=== PATIENT | male | born 1970 | race Caucasian/White ===

== ENCOUNTER → 2018-02-11 | Outpatient (CLI) | payer BC ==
--- NOTE | 2018-02-11 12:26 | CONS ---
CONSULTATION DATE OF SERVICE: 02/11/2018 A 48-year-old gentleman who has been evaluated in the sleep center for multiple awakenings from sleep and difficulties to initiate sleep. HISTORY OF PRESENT ILLNESS/SLEEP-WAKE EVALUATION: Patient usual sleep schedule on weekdays from 9 p.m. to 7 a.m. and on weekend from about 10 to 11 p.m. until 7 a.m. He does have problem with falling asleep. Has TV set in bedroom. Sleeps in different positions including side, back and stomach with snoring and witnessed episodes of stopped breathing by his . He wakes up from sleep 4 to 5 times with several episodes of nocturia. Sometimes he has twitching of the legs at night. Positive history of starting to see dreams after closing eyes. No history of cataplexy or sleep paralysis. [place] Sleepiness Scale is 6. PAST MEDICAL HISTORY: Positive for hypertension, TIA, anxiety, depression, COPD, BPH, nasal fracture. PAST SURGICAL HISTORY: Surgery treatment of hiatal hernia. REVIEW OF SYSTEMS: Difficulties to initiate sleep. Some restless leg symptoms. Positive history of twitching of legs. Sleepiness during the day, takes naps once a day with up to 4 cups of coffee. FAMILY HISTORY: Hypertension, heart problems, hyperlipidemia, arthritis, bronchitis, pneumonia, headaches, cancer, insomnia, acid reflux, restless legs. SOCIAL HISTORY: Positive for smoking less than 1 pack for 30 years, quit about 8 months ago. Alcohol consumption occasional. PHYSICAL EXAMINATION: During physical exam, a 48-year-old gentleman without distress. VITAL SIGNS: BP 129/88, HR 74, RR 16, height 5 feet 10 inches, weight 206, BMI 29.5, temperature 97.8, oxygen saturation room air 98%. HEENT: PERRLA, EOMI. Oropharynx low position of soft palate, wide pillars. Extreme restriction of nasal breathing on the left side, probably nasal septum deviation. Wide neck 16-1/2 inches in circumference. NECK: Supple, no JVD. Thyroid is not palpable. LUNGS: Clear to percussion and to auscultation. Good air exchange. No wheezing or rhonchi. HEART: S1, S2 regular. No murmurs, gallops, or rubs. ABDOMEN: Slightly obese. EXTREMITIES: No clubbing or cyanosis. AIR BATTLE MANAGER: Awake, alert, and oriented X3. Cranial nerves 2 to 7 intact. There is no fasciculation or atrophy. noted. No focal deficits observed. IMPRESSION: 1. Snoring, witnessed episodes of stopped breathing during the sleep, small oropharyngeal air space, multiple awakenings from sleep, obstructive sleep apnea- hypopnea syndrome. 2. History of restless leg symptoms and sometimes twitching of legs during the night. Possible restless legs syndrome and periodic limb movements. 3. Positive history of hypnagogic hallucinations. 4. History of anxiety. 5. History of depression. 6. History of benign prostatic hypertrophy. 7. History of chronic obstructive pulmonary disease with some changes of pulmonary function test according to patient. 8. Significant restriction of nasal breathing, nasal septum deviation, status post nasal fracture. 9. Hyperlipidemia. 10.Hypertension. 11.History of transient ischemic attack. 12.Overweight, borderline to obesity, body mass index 29.5. PLAN: 1. Polysomnography for evaluation of patient's breathing during sleep. 2. CPAP/BiPAP titration if sleep study confirms obstructive sleep apnea-hypopnea syndrome. 3. Preferable position during sleep on the side. 4. No driving if patient feels any sleepiness. 5. I will see patient for follow up visit to explain results of testing and following plan. 6. Stimulus control, paradoxical intention, worry time, no watching clock at night for treatment of insomnia. Thank you very much for referring this patient for consultation. Sincerely, Shahzad Wasserman MD, PhD, FAASM Diplomat of [employer] [place] [employer] Head Tennis Coach of [facility] [place] MMODL / ARNALDON: [id number] /
== END | disposition home or self-care (01) ==
LOC: SLEEP 10:22
PROVIDERS: ATTEND Internal Medicine
DX: G47.33 Obstructive sleep apnea (adult) (pediatric) (principal); F41.9 Anxiety disorder, unspecified; F32.9 Major depressive disorder, single episode, unspecified; J44.9 Chronic obstructive pulmonary disease, unspecified; N40.0 Benign prostatic hyperplasia without lower urinary tract symptoms; E78.5 Hyperlipidemia, unspecified; I10 Essential (primary) hypertension; E66.9 Obesity, unspecified; Z68.29 Body mass index [BMI] 29.0-29.9, adult; Z86.59 Personal history of other mental and behavioral disorders; Z86.73 Personal history of transient ischemic attack (TIA), and cerebral infarction without residual deficits; Z87.891 Personal history of nicotine dependence
CPT/HCPCS: 99211

== ENCOUNTER → 2018-06-24 | Outpatient (CLI) | payer BC ==
--- NOTE | 2018-06-24 18:15 | PN ---
PROGRESS NOTE DATE OF SERVICE: 06/24/2018 This patient is a 48-year-old gentleman who has been followed in Sleep Center for treatment of obstructive sleep apnea-hypopnea syndrome. Recently patient had a polysomnogram and CPAP titration. Sleep study showed obstructive sleep apnea with apnea-hypopnea index 14.8 and oxygen desaturation to 78%. During CPAP titration his respiration was under full control. I discussed results of sleep studies with the patient in detail. Subsequently he received his CPAP unit. Today is his first visit after he started to use CPAP equipment. According to the patient, there are no problems with the machine. He likes his mask. No snoring with the machine. No sleepiness during the day. [place] Sleepiness Scale today is 3, which is normal. I checked his CPAP unit. CPAP pressure is in the range of 5 to 10. Average pressure is 9.5 cm of water. Patient had the machine for 66 nights, and he used it 52 nights, 37 of which for more than 4 hours. Average usage is 6.0 hours. Leak is 13 L/minute, which is in normal range. Apnea-hypopnea index is only 1.6, which is normal. CURRENT MEDICATIONS: 1. Lipitor. 2. Lisinopril. 3. Celexa. 4. Bupropion. 5. Flomax. PHYSICAL EXAMINATION: GENERAL: A pleasant patient in no distress. VITAL SIGNS: BP 127/85, HR 83, RR 16, weight 204.4, temperature 97.5. HEENT: EOMI. Evaluation of oropharynx showed tongue protrudes midline. Low position of soft palate. Mallampati III to IV. NECK: Supple. No JVD. Thyroid is not palpable. LUNGS: Clear to percussion and to auscultation. Good air exchange. No wheezing or rhonchi. HEART: S1, S2 regular. No murmurs, gallops or rubs. ABDOMEN: Slightly obese. EXTREMITIES: No clubbing or cyanosis. PRODUCT OPERATIONS ASSOCIATE: Awake, alert, and oriented X3. Cranial nerves 2 to 7 intact. There is no fasciculation or atrophy. noted. No focal deficits observed. IMPRESSION: 1. Obstructive sleep apnea-hypopnea syndrome. Patient's respiration normalized on CPAP. Patient benefitting from treatment. 2. History of chronic obstructive pulmonary disease. 3. History of anxiety. 4. History of depression. 5. Hypertension. 6. History of transient ischemic attack. PLAN: 1. Patient will continue to use CPAP equipment every night for the whole night. 2. Losing weight. 3. Sleep hygiene with regular time in bed for at least 8 hours. 4. No driving if feeling any sleepiness. 5. We will maintain all necessary prescriptions for CPAP supplies, including mask, tube, filters. Patient is a truck driver flatbed. He promised to follow recommendations to use the machine every night for the whole night. I will see him in one month. Thank you very much for allowing me to participate in the management of your patient. Sincerely, Shahzad Wasserman MD, PhD, FAASM Diplomat of [employer] [employer] Meal Cook of [facility] [place] MMODL / ARNALDON: [id number] /
== END ==
LOC: SLEEP 16:00
PROVIDERS: ATTEND Internal Medicine
DX: Z53.9 Procedure and treatment not carried out, unspecified reason (principal)

== ENCOUNTER → 2022-03-14 | Outpatient (CLI) | payer BC ==
[2022-03-15 01:15] LABS: HIV 2 AB Non-Reactive (Non-Reactive); HIV AB P24 Non-Reactive (Non-Reactive); HIV P24 AG Non-Reactive (Non-Reactive)
[2022-03-17 15:39] LABS: C. trachomatis,PCR Negative (Neg,Equiv); Chlamydia trachomatis Source Urine; N. gonorrhoeae,PCR Negative (Neg,Equiv); Neisseria Source Urine
== END | disposition home or self-care (01) ==
LOC: LABWHC1 14:13
PROVIDERS: ATTEND Internal Medicine
DX: A63.0 Anogenital (venereal) warts (principal)
CPT/HCPCS: 36415; 86780; 87390; 87491; 87591

== ENCOUNTER 2023-05-02 21:38 | Inpatient (IN) | payer BC ==
[2023-05-02] MEDS ORDERED: Alteplase PER PHARMACY Stroke 1 EACH MISC MISCELLANE PRN (21:42)
[2023-05-02] MEDS ORDERED: SODIUM CHLORIDE 0.9% 1,000 ML IV STA (21:42)
--- NOTE | 2023-05-02 21:49 | ED ---
General Adult HPI - General Stated complaint: Stroke Time Seen by Provider: 05/02/23 21:41 - History of Present Illness Initial comments: Dictation was produced using Smallknot dictation software. please excuse any grammatical, word or spelling errors. Chief Complaint: 53-year-old male presents emergency department for acute strokelike symptoms History of Present Illness: And is a 53-year-old male. History of present illness obtained from EMS. According to EMS patient was last known well at 9:15 PM. They were at dinner when 2 minutes later he started to have symptoms noticed by his . EMS does not know patient's medical history. Chart review shows the patient has history of hypertension TIA anxiety depression COPD benign prostatic hypertrophy. EMS gave patient a positive prehospital stroke score. The ROS documented in this emergency department record has been reviewed and confirmed by me. Those systems with pertinent positive or negative responses have been documented in the HPI. All other systems are other negative and/or noncontributory. - Related Data Home Medications Medication Instructions Recorded Confirmed Aspirin EC [Ecotrin Low Dose] 81 mg PO DAILY 05/02/23 05/02/23 Escitalopram [Lexapro] 5 mg PO HS 05/02/23 05/02/23 Ezetimibe [Zetia] 10 mg PO DAILY 05/02/23 05/02/23 Mv-Min/Folic/K1/Lycopen/Lutein 1 tab PO DAILY 05/02/23 05/02/23 [Centrum Silver Men Tablet] Rosuvastatin Calcium [Crestor] 40 mg PO DAILY 05/02/23 05/02/23 icosapent ethyL [Icosapent Ethyl] 2 gm PO BID-W/MEALS 05/02/23 05/02/23 Allergies Allergy/AdvReac Type Severity Reaction Status Date / Time Penicillins Allergy Unknown Verified 05/02/23 22:24 Review of Systems ROS Statement: Those systems with pertinent positive or pertinent negative responses have been documented in the HPI. ROS Other: All systems not noted in ROS Statement are negative. General Exam - General Exam Comments Initial Comments: PHYSICAL EXAM: General Impression: Alert, not in acute distress, able to say his name HEENT: Normocephalic atraumatic, extra-ocular movements intact, pupils equal and reactive to light bilaterally, mucous membranes moist. Cardiovascular: Heart regular rate and rhythm Chest: Able to complete full sentences, no retractions, no tachypnea Abdomen: abdomen soft, non-tender, non-distended, no organomegaly Musculoskeletal: Pulses present and equal in all extremities, no peripheral edema Motor: no focal deficits noted Neurological: Slow to follow commands, aphasic, drift of all extremities, no dysarthria Skin: Intact with no visualized rashes Psych: Normal affect and mood Course Vital Signs 05/02/23 05/02/23 05/02/23 21:50 22:00 22:15 Temperature 97.8 F Pulse Rate 87 85 78 Respiratory 16 13 18 Rate Blood Pressure 150/102 139/90 141/89 O2 Sat by Pulse 97 95 96 Oximetry 05/02/23 05/02/23 05/02/23 22:30 22:45 23:00 Temperature Pulse Rate 77 75 77 Respiratory 15 13 17 Rate Blood Pressure 155/99 146/95 140/89 O2 Sat by Pulse 96 95 96 Oximetry 05/02/23 05/02/23 12 23:15 23:30 23:45 Temperature Pulse Rate 74 74 73 Respiratory 15 15 14 Rate Blood Pressure 141/86 131/81 125/80 O2 Sat by Pulse 94 L 94 L 94 L Oximetry - Reevaluation(s) Reevaluation #1: 05/02/23 21:49 Patient seen and evaluated initially in the hallway. He was activated code alteplase prior to arriving in our emergency department. Patient has no known history per EMS of anticoagulation use. He does have a history of TIA several months ago. Patient given an initial NIH score of 6. He does fall into the time constraints of alteplase administration case discussed with Dr. Elizabeth, stroke neurologist who is aware. Reevaluation #2: 05/02/23 22:06 Patient reevaluated at bedside until 6 PM. He does have some movement of his right however he has basically flaccid paralysis of his left lung slurred speech. Reevaluation #3: 05/02/23 22:09 Risk and benefits were discussed with the patient. He has medications to alteplase administration. He is agreeable. Patient's case given his age and lack of comorbidities. Benefits out with a risk. EKG Findings - EKG Comments: EKG Findings:: My EKG interpretation: Ventricular rate 70, sinus rhythm,. Interval 34, QRS 106, QTC 44. No [place] prolongation, no QTC prolongation, no ST or T-wave changes noted. Overall, this EKG is unremarkable Medical Decision Making - Medical Decision Making Was pt. sent in by a medical professional or institution (SHALOM Landeros, PLATFORM INSPECTOR, urgent care, hospital, or correction...) When possible be specific @ -No Did you speak to anyone other than the patient for history (EMS, parent, family, police, friend...)? What history was obtained from this source @ -EMS as described above Did you review nursing and triage notes (agree or disagree)? Why? @ -I reviewed and agree with nursing and triage notes Were old charts reviewed (outside hosp., previous admission, EMS record, old EKG, old radiological studies, urgent care reports/EKG's, correction records)? Report findings @ -No old charts were reviewed Differential Diagnosis (chest pain, altered mental status, abdominal pain women, abdominal pain men, vaginal bleeding, musculoskeletal, weakness, fever, dyspnea, syncope, headache, dizziness, GI bleed, back pain, seizure, CVA, palpatations, mental health)? @ - Differential CVA: Ischemic stroke, hemorrhagic stroke, brain tumor, atypical migraine, Wernicke's encephalopathy, seizure, multiple sclerosis, meningitis, encephalitis, hypoglycemia, Guillain-Fernandez, electrolytes disturbance, myasthenia gravis.... This is not meant to be an all-inclusive list EKG interpreted by me (3pts min.). @ -As above X-rays interpreted by me (1pt min.). @ -Chest x-ray is nonacute CT interpreted by me (1pt min.). @ -Computed tomography scan of the brain shows no intracranial bleeds. CT angiography shows no large vessel occlusion U/S interpreted by me (1pt. min.). @ -None done What testing was considered but not performed or refused? (CT, X-rays, U/S, labs)? Why? @ -None What meds were considered but not given or refused? Why? @ -None Did you discuss the management of the patient with other professionals (professionals i.e. SHALOM Landeros, PLATFORM INSPECTOR, lab, RT, psych nurse, long term care social worker, shade classifier, teacher, dog control officer, watch caser)? Give summary @ -Discussed with stroke neurologist as described above Was smoking cessation discussed for >3mins.? @ -No Was critical care preformed (if so, how long)? @ -yes, 77 minutes Were there social determinants of health that impacted care today? How? (Homelessness, low income, unemployed, alcoholism, drug addiction, transportation, low edu. Level, literacy, decrease access to med. care, fpc, rehab)? @ -No Was there de-escalation of care discussed even if they declined (Discuss DNR or withdrawal of care, Hospice)? DNR status @ -No What co-morbidities impacted this encounter? (DM, HTN, Smoking, COPD, CAD, Cancer, CVA, ARF, Chemo, Hep., AIDS, mental health diagnosis, sleep apnea, morbid obesity)? @ -None Was patient admitted / discharged? Hospital course, mention meds given and route, prescriptions, significant lab abnormalities, going to OR and other pertinent info. @ -53-year-old male presents emergency per with acute strokelike symptoms. Vital signs are stable. Patient given hi NIH score. Cold alteplase pates. CT brain shows no intracranial bleed. Patient given alteplase. CT angiography shows no large vessel occlusion. Patient's symptoms did not significantly improve after TPA administration. Laboratory evaluation is unremarkable. Patient mid to the ICU for further care. Neurology consulted. Undiagnosed new problem with uncertain prognosis? @ -No Drug Therapy requiring intensive monitoring for toxicity (Heparin, Nitro, Insulin, Cardizem)? @ -No Were any procedures done? @ -No Diagnosis/symptom? Acute, or Chronic, or Acute on Chronic? Uncomplicated (without systemic symptoms) or Complicated (systemic symptoms)? @ -CVA, status post alteplase Side effects of treatment? @ -No Exacerbation, Progression, or Severe Exacerbation? @ -No Poses a threat to life or bodily function? How? (Chest pain, USA, SC, pneumonia, PE, COPD, DKA, ARF, appy, cholecystitis, CVA, Diverticulitis, Homicidal, Suicidal, threat to staff... and all critical care pts) @ -yes - Lab Data Result diagrams: 05/02/23 21:58 05/02/23 21:58 Lab Results 05/02/23 05/02/23 05/02/23 Range/Units 21:54 21:58 21:58 WBC 6.9 (3.8-10.6) k/uL RBC 4.54 (4.30-5.90) m/uL Hgb 14.8 (13.0-17.5) gm/dL Hct 43.1 (39.0-53.0) % MCV 94.8 (80.0-100.0) fL MCH 32.5 (25.0-35.0) pg MCHC 34.3 (31.0-37.0) g/dL RDW 12.3 (11.5-15.5) % Plt Count 193 (150-450) k/uL MPV 7.9 Neutrophils % 43 % Lymphocytes % 38 % Monocytes % 7 % Eosinophils % 8 % Basophils % 1 % Neutrophils # 3.0 (1.3-7.7) k/uL Lymphocytes # 2.6 (1.0-4.8) k/uL Monocytes # 0.5 (0-1.0) k/uL Eosinophils # 0.5 (0-0.7) k/uL Basophils # 0.1 (0-0.2) k/uL PT 11.4 (10.0-12.5) sec INR 1.0 (<1.2) APTT 25.0 (22.0-30.0) sec Sodium (137-145) mmol/L Potassium (3.5-5.1) mmol/L Chloride (98-107) mmol/L Carbon Dioxide (22-30) mmol/L Anion Gap mmol/L BUN (9-20) mg/dL Creatinine (0.66-1.25) mg/dL Est GFR (CKD-EPI)AfAm (>60 ml/min/1.73 sqM) Est GFR (CKD-EPI)NonAf (>60 ml/min/1.73 sqM) Glucose (74-99) mg/dL POC Glucose (mg/dL) 116 H (70-110) mg/dL POC Glu Tree Warden ID Johan, Federico Calcium (8.4-10.2) mg/dL Total Bilirubin (0.2-1.3) mg/dL AST (17-59) U/L ALT (4-49) U/L Alkaline Phosphatase (38-126) U/L Creatine Kinase (55-170) U/L Troponin I (0.000-0.034) ng/mL Total Protein (6.3-8.2) g/dL Albumin (3.5-5.0) g/dL 05/02/23 05/02/23 Range/Units 21:58 21:58 WBC (3.8-10.6) k/uL RBC (4.30-5.90) m/uL Hgb (13.0-17.5) gm/dL Hct (39.0-53.0) % MCV (80.0-100.0) fL MCH (25.0-35.0) pg MCHC (31.0-37.0) g/dL RDW (11.5-15.5) % Plt Count (150-450) k/uL MPV Neutrophils % % Lymphocytes % % Monocytes % % Eosinophils % % Basophils % % Neutrophils # (1.3-7.7) k/uL Lymphocytes # (1.0-4.8) k/uL Monocytes # (0-1.0) k/uL Eosinophils # (0-0.7) k/uL Basophils # (0-0.2) k/uL PT (10.0-12.5) sec INR (<1.2) APTT (22.0-30.0) sec Sodium 142 (137-145) mmol/L Potassium 4.3 (3.5-5.1) mmol/L Chloride 106 (98-107) mmol/L Carbon Dioxide 21 L (22-30) mmol/L Anion Gap 15 mmol/L BUN 13 (9-20) mg/dL Creatinine 1.03 (0.66-1.25) mg/dL Est GFR (CKD-EPI)AfAm >90 (>60 ml/min/1.73 sqM) Est GFR (CKD-EPI)NonAf 84 (>60 ml/min/1.73 sqM) Glucose 116 H (74-99) mg/dL POC Glucose (mg/dL) (70-110) mg/dL POC Glu Tree Warden ID Calcium 8.9 (8.4-10.2) mg/dL Total Bilirubin 0.4 (0.2-1.3) mg/dL AST 43 (17-59) U/L ALT 60 H (4-49) U/L Alkaline Phosphatase 57 (38-126) U/L Creatine Kinase 488 H (55-170) U/L Troponin I <0.012 (0.000-0.034) ng/mL Total Protein 6.9 (6.3-8.2) g/dL Albumin 4.3 (3.5-5.0) g/dL Disposition Clinical Impression: Cerebrovascular accident (CVA) Disposition: ADMITTED IP TO THIS HOSP Condition: Critical Referrals: None,Stated [REFERRING] - 1-2 days Decision Time: 00:37
[2023-05-02] MEDS ORDERED: ALTEPLASE BOLUS FOR STROKE 9 MG in EMPTY SYRINGE 1 SYR IV STA (21:55)
[2023-05-02] MEDS ORDERED: ALTEPLASE 79 MG in EMPTY BAG 1 BAG IV STA (21:55)
[2023-05-02 21:57] LABS: Glucose,Whole Blood 116 mg/dL (70-110)
--- NOTE | 2023-05-02 22:02 | CT ---
EXAMINATION TYPE: CT brain wo con for TPA CT DLP: 1128.6 mGycm, Automated exposure control for dose reduction was used. DATE OF EXAM: 05/02/2023 9:52 PM COMPARISON: None. CLINICAL INDICATION:Male, 53 years old with history of Neuro deficit, acute, stroke suspected, Slurre d speech, facial droop. TECHNIQUE: Brain: Axial CT images of the brain were obtained with coronal and sagittal reformats created and rev iewed. Contrast used: None. Oral contrast used: None. FINDINGS: Extra-axial spaces: No abnormal extra-axial fluid collections. Ventricular system: Within normal limits. Cerebral parenchyma: No increased attenuation to suggest acute intraparenchymal hemorrhage. The gra y-white matter interface appears maintained. No significant atrophy. White matter unremarkable by C T. Cerebellum: No acute abnormality. Mass effect: No evidence of mass effect or midline shift. Intracranial vasculature: Atherosclerotic calcifications of the larger arteries near the skull base, particularly the carotid siphons. Soft tissues: Normal. Visualized orbits: Orbital contents appear grossly intact. Calvarium/osseous structures: No evidence of calvarial fracture. Paranasal sinuses and mastoid air cells: Clear MRI is more sensitive for detecting acute processes such as infarct, and may be considered if clinica lly warranted. IMPRESSION: No acute intracranial CT abnormality.
[2023-05-02 22:29] LABS: Basophils # (A) 0.1 k/uL (0-0.2); Basophils % (A) 1 %; Eosinophils # (A) 0.5 k/uL (0-0.7); Eosinophils % (A) 8 %; HCT 43.1 % (39.0-53.0); HGB 14.8 gm/dL (13.0-17.5); Lymphocytes # (A) 2.6 k/uL (1.0-4.8); Lymphocytes % (A) 38 %; MCH 32.5 pg (25.0-35.0); MCHC 34.3 g/dL (31.0-37.0); MCV 94.8 fL (80.0-100.0); Mean Platelet Volume 7.9; Monocytes # (A) 0.5 k/uL (0-1.0); Monocytes % (A) 7 %; Neutrophils % (A) 43 %; Platelet Count 193 k/uL (150-450); RBC 4.54 m/uL (4.30-5.90); RDW 12.3 % (11.5-15.5); WBC 6.9 k/uL (3.8-10.6)
[2023-05-02] MEDS ORDERED: SODIUM CHLORIDE 0.9% 50 ML MINI-BAG IV ONE ×2 (22:42→22:55)
[2023-05-02 22:46] LABS: ALT 60 U/L (4-49); AST 43 U/L (17-59); African American GFR (CKD) >90 (>60 ml/min/1.73 sqM); Albumin 4.3 g/dL (3.5-5.0); Alkaline Phosphatase 57 U/L (38-126); Anion Gap 15 mmol/L; Blood Urea Nitrogen 13 mg/dL (9-20); Calcium 8.9 mg/dL (8.4-10.2); Carbon Dioxide 21 mmol/L (22-30); Chloride 106 mmol/L (98-107); Creatine Kinase 488 U/L (55-170); Glucose 116 mg/dL (74-99); Non-African American GFR(CKD) 84 (>60 ml/min/1.73 sqM); Potassium 4.3 mmol/L (3.5-5.1); Sodium 142 mmol/L (137-145); Total Bilirubin 0.4 mg/dL (0.2-1.3); Total Protein 6.9 g/dL (6.3-8.2)
[2023-05-02 22:47] LABS: Prothrombin Time 11.4 sec (10.0-12.5)
--- NOTE | 2023-05-03 00:03 | CT ---
EXAMINATION TYPE: CT angio head neck DATE OF EXAM: 05/02/2023 10:08 PM COMPARISON: CT head earlier today. CLINICAL INDICATION:Male, 53 years old with history of Neuro deficit, acute, stroke suspected; [facility], TECHNIQUE: Axially acquired helical CT angiogram of the head and neck was obtained with contrast. Axi al images are supplemented with 3D reconstructions which were post-processed at an independent workst atcritical access hospital. NASCET criteria used. Contrast used: 65 mL Isovue-370 IV, Oral contrast used: None. CT DLP: 742 mGycm, Automated exposure control for dose reduction was used. FINDINGS: CTA Neck: A 3 vessel aortic arch is shown. No significant atherosclerotic disease along the arch. Or igins of the branch vessels are patent. There is no atherosclerotic plaque at the origins of the william tebral arteries. The common carotid, external carotid, cervical segments of the internal carotid, and the cervical segments of the vertebral arteries are patent. Mild plaque at the carotid indications/p roximal ICAs, without significant stenosis. There is no hemodynamically significant diameter stenosis , dissection, nor pseudoaneurysm present. The right vertebral artery is dominant. Other: Included lung apices show no acute infiltrate or pneumothorax. Included heart appears at least mildly enlarged. Old healed right posterior lateral rib fractures involving the fourth through sixth ribs. CTA Head: The anterior and posterior cerebral circulations are patent. Mild calcified plaque in the carotid siphons without significant stenosis. Carotid bifurcations are patent. MCAs and ACAs appear p atent. There is likely a patent anterior communicating artery. Posteriorly, major branches in the pos terior fossa appear patent. The right vertebral provides the majority supply to the basilar artery, w ith small contribution from the left vertebral. Basilar artery appears slightly tortuous and patent. There are patent bilateral posterior cerebral arteries and patent bilateral posterior communicating a rteries. No major vascular occlusion, high-grade stenosis, dissection or sizable aneurysm is shown. Other: The dural venous sinuses appear patent without evidence of thrombosis. IMPRESSION: CTA neck: No dissection, hemodynamically significant stenosis, or pseudoaneurysm detected in the carotid or william tebral arteries in the neck. CTA head: No intracranial major vascular occlusion or significant stenosis, or sizable aneurysm detected in the limits of CTA.
[2023-05-03] MEDS ORDERED: ASPIRIN 81 MG PO STA (00:34)
[2023-05-03] MEDS ORDERED: NALOXONE 0.4 MG/ML 1 ML VIAL IV PRN (01:12)
[2023-05-03 01:19] LABS: Glucose,Whole Blood 108 mg/dL (70-110)
[2023-05-03] MEDS ORDERED: SODIUM CHLORIDE 0.9% 50 ML MINI-BAG IV ONE (01:33)
--- NOTE | 2023-05-03 01:58 | XR ---
EXAM: XR Chest, 2 Views CLINICAL HISTORY: ITS.REASON XR Reason: altered mental status TECHNIQUE: Frontal and lateral views of the chest. COMPARISON: No relevant prior studies available. FINDINGS: Lungs: Shallow inspiration with bibasilar atelectasis. Pleural space: Unremarkable. No pneumothorax. No pleural effusions. Heart: Prominence of the cardiac likely secondary to shallow inspiration. Mediastinum: Unremarkable. Normal mediastinal contour. Bones/joints: No acute osseous abnormalities. IMPRESSION: Shallow inspiration with bibasilar atelectasis.
[2023-05-03 04:55] LABS: African American GFR (CKD) >90 (>60 ml/min/1.73 sqM); Anion Gap 9 mmol/L; Blood Urea Nitrogen 12 mg/dL (9-20); Calcium 8.7 mg/dL (8.4-10.2); Carbon Dioxide 23 mmol/L (22-30); Chloride 108 mmol/L (98-107); Glucose 100 mg/dL (74-99); Magnesium 2.1 mg/dL (1.6-2.3); Non-African American GFR(CKD) >90 (>60 ml/min/1.73 sqM); Potassium 4.3 mmol/L (3.5-5.1); Sodium 140 mmol/L (137-145)
[2023-05-03 05:17] LABS: INR 1.2 (<1.2); Prothrombin Time 12.5 sec (10.0-12.5)
[2023-05-03 05:18] LABS: Basophils % (A) 1 %; Eosinophils # (A) 0.4 k/uL (0-0.7); Eosinophils % (A) 6 %; HCT 40.9 % (39.0-53.0); HGB 13.9 gm/dL (13.0-17.5); Lymphocytes # (A) 2.3 k/uL (1.0-4.8); Lymphocytes % (A) 40 %; MCH 32.5 pg (25.0-35.0); MCHC 33.9 g/dL (31.0-37.0); MCV 95.9 fL (80.0-100.0); Mean Platelet Volume 8.2; Monocytes # (A) 0.4 k/uL (0-1.0); Monocytes % (A) 8 %; Neutrophils # (A) 2.4 k/uL (1.3-7.7); Neutrophils % (A) 42 %; Platelet Count 180 k/uL (150-450); RBC 4.26 m/uL (4.30-5.90); RDW 12.4 % (11.5-15.5); WBC 5.7 k/uL (3.8-10.6)
--- NOTE | 2023-05-03 10:33 | P.CNPUL ---
History of Present Illness Consult date: 05/03/23 Requesting physician: Martin Overton Reason for consult: other (Critical care management) Chief complaint: Aphasia, facial droop, left-sided weakness History of present illness: This is a 53-year-old male patient with a known history of hyperlipidemia, anxiety/depression obstructive sleep apnea on CPAP at 10 cm of water. He presented to the emergency room last evening after developing aphasia and left- sided weakness. Code stroke was activated and he was seen by neurology who deemed him qualified for alteplase administration. Computed tomography scan of the brain revealed no acute intracranial abnormality. CT angiogram revealed no significant carotid stenosis. No intracranial major vascular occlusion or significant stenosis, no sizable aneurysm. Chest x-ray reveals some basilar atelectasis with a shallow inspiration. White count 5.7. Hemoglobin 13.9. Platelets 180. Sodium 140. Potassium 4.3. Bicarb 23. BUN 12. Creatinine 0.96. Glucose 100. He is seen today in consultation in the intensive care unit. He is awake and alert. He still has a left-sided facial droop and left- sided weakness and unable to resist gravity. Current NIH score of 9. He has some mild to moderate slurring of words. He is maintaining good O2 saturations in the 90s on room air. He's afebrile. Hemodynamically stable. Review of Systems REVIEW OF SYSTEMS: CONSTITUTIONAL: Denies any recent significant weight loss or weight gain. EYES: Denies change in vision. EARS, NOSE, MOUTH, THROAT: Denies headaches, denies sore throat. CARDIOVASCULAR: Denies chest pain, palpitations or syncopal episodes. RESPIRATORY: Denies shortness of breath, cough, congestion or hemoptysis. GASTROINTESTINAL: Denies change in appetite, denies abdominal pain GENITOURINARY: Denies hematuria, denies infections. MUSKULOSKELETAL: Denies pain, denies swelling. INTEGUMENTARY: Denies rash, denies eczema. NEUROLOGICAL: Left-sided weakness. Denies recent memory loss, no recent seizure activity. PSYCHIATRIC: Denies anxiety, denies depression. HEMATOLOGIC/LYMPHATIC: Denies anemia, denies enlarged lymph nodes. Past Medical History Past Medical History: Coronary Artery Disease (CAD), COPD, CVA/TIA Additional Past Medical History / Comment(s): TIA 2018 History of Any Multi-Drug Resistant Organisms: None Reported Past Surgical History: Unable to Obtain Past Anesthesia/Blood Transfusion Reactions: No Reported Reaction Past Psychological History: Unable to Obtain Smoking Status: Former smoker, Unknown if ever smoked Past Alcohol Use History: Occasional Past Drug Use History: None Reported Medications and Allergies Home Medications Medication Instructions Recorded Confirmed Type Aspirin EC [Ecotrin Low Dose] 81 mg PO DAILY 05/02/23 05/02/23 History Escitalopram [Lexapro] 5 mg PO HS 05/02/23 05/02/23 History Ezetimibe [Zetia] 10 mg PO DAILY 05/02/23 05/02/23 History Mv-Min/Folic/K1/Lycopen/Lutein 1 tab PO DAILY 05/02/23 05/02/23 History [Centrum Silver Men Tablet] Rosuvastatin Calcium [Crestor] 40 mg PO DAILY 05/02/23 05/02/23 History icosapent ethyL [Icosapent Ethyl] 2 gm PO BID-W/MEALS 05/02/23 05/02/23 History Allergies Allergy/AdvReac Type Severity Reaction Status Date / Time Penicillins Allergy Unknown Verified 05/02/23 22:24 Physical Exam Vitals: Vital Signs Temp Pulse Resp BP Pulse Ox FiO2 05/03/23 10:00 60 18 141/97 94 L 05/03/23 09:00 71 19 146/96 94 L 05/03/23 08:30 63 16 136/98 95 05/03/23 08:00 97.6 F 61 18 140/98 96 05/03/23 07:30 61 16 138/96 95 05/03/23 07:00 67 9 L 134/98 95 05/03/23 06:00 63 14 123/86 94 L 05/03/23 05:00 68 11 L 127/86 95 05/03/23 04:00 98.2 F 73 13 113/86 95 05/03/23 03:00 75 12 121/86 93 L 05/03/23 02:06 21 05/03/23 02:00 71 18 129/86 95 05/03/23 01:30 97.5 F L 71 15 129/86 94 L 05/03/23 00:45 76 19 117/81 94 L 05/03/23 00:15 78 16 121/80 93 L 05/03/23 00:00 78 15 139/82 93 L 05/02/23 23:46 72 16 125/80 95 05/02/23 23:45 73 14 125/80 94 L 05/02/23 23:30 74 15 131/81 94 L 05/02/23 23:15 74 15 141/86 94 L 05/02/23 23:00 77 17 140/89 96 05/02/23 22:45 75 13 146/95 95 05/02/23 22:30 77 15 155/99 96 05/02/23 22:15 78 18 141/89 96 05/02/23 22:00 85 13 139/90 95 05/02/23 21:50 97.8 F 87 16 150/102 97 Intake and Output 05/02/23 05/03/23 05/03/23 22:59 06:59 14:59 Intake Total 40 Output Total 450 Balance -410 Intake: Oral 40 Output: Urine 450 Other: Voiding Method Urinal # Voids 0 0 Weight 97.069 kg 97.069 kg GENERAL EXAM: Alert, 53-year-old male, on room air, comfortable in no apparent distress. HEAD: Normocephalic. Left sided facial droop EYES: Normal reaction of pupils, equal size. NOSE: Clear with pink turbinates. THROAT: No erythema or exudates. NECK: No masses, no JVD. CHEST: No chest wall deformity. LUNGS: Equal air entry with no crackles, wheeze, rhonchi or dullness. CVS: S1 and S2 normal with no audible murmur, regular rhythm. ABDOMEN: No hepatosplenomegaly, normal bowel sounds, no guarding or rigidity. SPINE: No scoliosis or deformity SKIN: No rashes CENTRAL NERVOUS SYSTEM: The upper and lower extremity weakness, unable to resist gravity, tone is normal in all 4 extremities. EXTREMITIES: There is no peripheral edema. No clubbing, no cyanosis. Peripheral pulses are intact. Results - Laboratory Findings CBC and BMP: 05/03/23 03:43 05/03/23 03:43 PT/INR, D-dimer PT 12.5 sec (10.0-12.5) 05/03/23 03:43 INR 1.2 (<1.2) H 05/03/23 03:43 Abnormal lab findings: Abnormal Labs 05/02/23 05/02/23 05/03/23 21:54 21:58 03:43 RBC INR 1.2 H Chloride Carbon Dioxide 21 L Glucose 116 H POC Glucose (mg/dL) 116 H ALT 60 H Creatine Kinase 488 H 05/03/23 05/03/23 03:43 03:43 RBC 4.26 L INR Chloride 108 H Carbon Dioxide Glucose 100 H POC Glucose (mg/dL) ALT Creatine Kinase - Diagnostic Findings Chest x-ray: image reviewed Assessment and Plan Assessment: Acute cerebrovascular accident resulting in left-sided weakness, initial aphasia and left-sided facial droop. Received alteplase at 22:10 on 05/02/2023 History of TIA 7 months ago Hyperlipidemia Anxiety/depression Obstructive sleep apnea, on CPAP Plan: The patient was seen and evaluated Computed tomography scan of the brain, CT angiogram, chest x-ray, labs and medications reviewed Continue to monitor closely here in the intensive care unit Continue neurologic evaluations Follow-up CT scan of the brain this evening Echocardiogram pending MRI of the brain pending Neurology is consulted We will continue to follow and make further recommendations based on his clinical status I have personally seen and examined the patient, performed the documentation and the assessment and plan as written. Number of minutes spent on the visit: 20.
[2023-05-03] MEDS: EZETIMIBE 10 MG TAB PO SCH (13:38)
[2023-05-03] MEDS: ATORVASTATIN 80 MG TAB PO SCH (13:38)
--- NOTE | 2023-05-03 13:46 | P.HPIM ---
History of Present Illness H&P Date: 05/03/23 Chief Complaint: Acute CVA with left-sided weakness HISTORY OF PRESENT ILLNESS: This is a 53-year-old male with a previous medical history significant for mixed hyperlipidemia, history of TIA, enlarged prostate, chronic obstructive pulmonary disease, obstructive sleep apnea, quit cigarette smoking about 5 months ago, patient presented to the emergency department at [facility] with the left sided weakness associated with aphasia and left-sided facial droop he was living with his girlfriend when she noticed the changes and she called 911 at around 9:15 PM he came to the ER and he was evaluated by Dr. Jacobo Culver patient had a computed tomography scan of the brain that was negative for acute infarct or bleed at that time, was followed by CTA of the neck and the brain that did not show any evidence of any carotid artery stenosis or any dissection and no sizable aneurysm or thrombosis patient was at the window for alteplase which he received and he was admitted to the intensive care unit, he was seen in consultation by critical care medicine Dr. Hamlin as well as neurology, MRI was orders pending the time of dictation,along with echocard iogram patient was admitted for further evaluation and treatment. REVIEW OF SYSTEMS: Constitutional: No documented fever, no chills, no night sweats. No weight change. No weakness, fatigue or lethargy. No daytime sleepiness. EENT: No headache. No blurred vision or double vision, no loss of vision. No loss of Hearing, no ringing in the ears, no dizziness. No nasal drainage or congestion. No epistaxis. No sore throat. Lungs: No shortness of breath, no cough, no sputum production. No wheezing. Reports dyspnea with activity. Cardiovascular: No chest pain, no lower extremity edema. No palpitations. No paroxysmal nocturnal dyspnea. No orthopnea. No lightheadedness or dizziness. No syncopal episodes. Abdominal: Reports abdominal pain. No nausea, vomiting. No diarrhea. No cons tipation. No bloody or tarry stools reports loss of appetite. Genitourinary: No dysuria, increased frequency, urgency. No urinary retention. Musculoskeletal: No myalgias. No muscle weakness, no gait dysfunction, no frequent falls. No back pain. No neck pain. Integumentary: No wounds, no lesions. No rash or pruritus. No unusual bruising. No change in hair or nails. Neurologic: No aphasia. No facial droop. No change in mentation. No head injury. No headache. No paralysis. No paresthesia. Psychiatric: No depression. No anxiety. No mood swings. Endocrine: No abnormal blood sugars. No weight change. PAST MEDICAL HISTORY: Mixed hyperlipidemia. TIA. COPD. Enlarged prostate. Obstructive sleep apnea PAST SURGICAL HISTORY: Hiatal hernia repair and 15 SOCIAL HISTORY: Patient smoked about a pack every day since the age of 14 and quit about 5 months ago. He denies any alcohol ingestion, he denies any drug use or abuse. FAMILY HISTORY: Father 75-year-old with non-Hodgkin lymphoma and bladder cancer, mother is 68-year-old with hypertension, patient has one brother who is okay and 2 sisters one with COPD and the other one is okay patient has one daughter was born with left ventricular hypoplasia PHYSICAL EXAMINATION: General: 53-year-old male laying down in bed in no apparent distress. HEENT: Head is atraumatic, normocephalic, pupils were equal round reactive to light and recommendation, extraocular muscle movement were intact, sclera nonicteric, conjunctivae were pale, mucous membranes of the mouth are somewhat dry. Neck: Supple, no JVP, normal carotid upstroke bilaterally, no lymphadenopathy. Chest: Decreased breath sounds at the bases, few rhonchi, no expiratory wheezes, no chest wall tenderness, no intercostal retractions. Heart: First heart sound is normal, second heart sound is normal there is no gallop or murmur. Abdomen: Soft, nontender, nondistended, positive bowel sounds. Extremities: There is no edema no calf tenderness DP +2 bilaterally. Neurologic examination: Patient is awake alert and oriented X3, cranial nerves II-12 appear grossly intact, muscle power were 5 out of 5 in upper extremities and 5 out of 5 in bilateral lower extremities, deep tendon reflexes normal bilaterally. ASSESSMENT AND PLAN: 1. Acute ischemic cerebral vascular accident with left-sided weakness did receive alteplase after a negative computed tomography scan of the brain and a negative CT angiography of the neck and the brain, patient is scheduled to go for echocardiogram, he is scheduled to go for MRI of the brain with and without gadolinium, patient was seen in consultation by neurology as well as by critical care medicine, continue neuro check around the clock, continue to monitor the patient very closely, continue the IV fluid resuscitation the form of normal saline 100 mL an hour for permissive hypertension, monitor the patient input and output and daily weight, patient is to evaluate by neurology for the plan of care since the patient wasn't aspirin rosuvastatin and Marlyn prior to this acute ischemic event. 2. Mixed hyperlipidemia continue patient on atorvastatin 80 mg once every day as well as zetia 10 mg once every day, monitor the patient with pedal, keep LDL 55-70. 3. Obstructive sleep apnea. Continue patient on CPAP. 4. Enlarged prostate. Stable. We'll continue to monitor for urinary retention. Try to straight cath for residual volume greater than 300 5. History of TIA continue treatment as in paragraph #1. 6. History of tobacco use and dependence. Patient was scheduled to go for a low-dose computed tomography scan of the lung as a screen for colon cancer. 7. Vitamin D deficiency. Continue patient on vitamin D3 supplement 2000 and once every day. 8. DVT prophylaxis. Bilateral knee-high GERMAIN hose. 9. GI prophylaxis. Continue Protonix 40 mg IV push every 24 hours. 10. Admitted to inpatient. Estimate a length of stay 2 midnights. 11. Full code. Past Medical History Past Medical History: Coronary Artery Disease (CAD), COPD, CVA/TIA Additional Past Medical History / Comment(s): TIA 2018 History of Any Multi-Drug Resistant Organisms: None Reported Past Surgical History: Unable to Obtain Past Anesthesia/Blood Transfusion Reactions: No Reported Reaction Past Psychological History: Unable to Obtain Smoking Status: Former smoker, Unknown if ever smoked Past Alcohol Use History: Occasional Past Drug Use History: None Reported Medications and Allergies Home Medications Medication Instructions Recorded Confirmed Type Aspirin EC [Ecotrin Low Dose] 81 mg PO DAILY 05/02/23 05/02/23 History Escitalopram [Lexapro] 5 mg PO HS 05/02/23 05/02/23 History Ezetimibe [Zetia] 10 mg PO DAILY 05/02/23 05/02/23 History Mv-Min/Folic/K1/Lycopen/Lutein 1 tab PO DAILY 05/02/23 05/02/23 History [Centrum Silver Men Tablet] Rosuvastatin Calcium [Crestor] 40 mg PO DAILY 05/02/23 05/02/23 History icosapent ethyL [Icosapent Ethyl] 2 gm PO BID-W/MEALS 12/02/23 12/02/23 History Allergies Allergy/AdvReac Type Severity Reaction Status Date / Time Penicillins Allergy Unknown Verified 05/02/23 22:24 Physical Exam Vitals: Vital Signs Temp Pulse Resp BP Pulse Ox FiO2 05/03/23 10:00 60 18 141/97 94 L 05/03/23 09:00 71 19 146/96 94 L 05/03/23 08:30 63 16 136/98 95 05/03/23 08:00 97.6 F 61 18 140/98 96 05/03/23 07:30 61 16 138/96 95 05/03/23 07:00 67 9 L 134/98 95 05/03/23 06:00 63 14 123/86 94 L 05/03/23 05:00 68 11 L 127/86 95 05/03/23 04:00 98.2 F 73 13 113/86 95 05/03/23 03:00 75 12 121/86 93 L 05/03/23 02:06 21 05/03/23 02:00 71 18 129/86 95 05/03/23 01:30 97.5 F L 71 15 129/86 94 L 05/03/23 00:45 76 19 117/81 94 L 05/03/23 00:15 78 16 121/80 93 L 05/03/23 00:00 78 15 139/82 93 L 05/02/23 23:46 72 16 125/80 95 05/02/23 23:45 73 14 125/80 94 L 05/02/23 23:30 74 15 131/81 94 L 05/02/23 23:15 74 15 141/86 94 L 05/02/23 23:00 77 17 140/89 96 05/02/23 22:45 75 13 146/95 95 05/02/23 22:30 77 15 155/99 96 05/02/23 22:15 78 18 141/89 96 05/02/23 22:00 85 13 139/90 95 05/02/23 21:50 97.8 F 87 16 150/102 97 Intake and Output 05/02/23 05/03/23 05/03/23 22:59 06:59 14:59 Intake Total 40 Output Total 450 Balance -410 Intake: Oral 40 Output: Urine 450 Other: Voiding Method Urinal # Voids 0 0 Weight 97.069 kg 97.069 kg Results CBC & Chem 7: 05/03/23 03:43 05/03/23 03:43 Labs: Abnormal Lab Results - Last 24 Hours (Table) 05/02/23 05/02/23 05/03/23 Range/Units 21:54 21:58 03:43 RBC (4.30-5.90) m/uL INR 1.2 H (<1.2) Chloride (98-107) mmol/L Carbon Dioxide 21 L (22-30) mmol/L Glucose 116 H (74-99) mg/dL POC Glucose (mg/dL) 116 H (70-110) mg/dL ALT 60 H (4-49) U/L Creatine Kinase 488 H (55-170) U/L 05/03/23 05/03/23 Range/Units 03:43 03:43 RBC 4.26 L (4.30-5.90) m/uL INR (<1.2) Chloride 108 H (98-107) mmol/L Carbon Dioxide (22-30) mmol/L Glucose 100 H (74-99) mg/dL POC Glucose (mg/dL) (70-110) mg/dL ALT (4-49) U/L Creatine Kinase (55-170) U/L
[2023-05-03] MEDS: SODIUM CHLORIDE 0.9% 1,000 ML IV SCH ×2 (13:59→23:45)
--- NOTE | 2023-05-03 14:35 | P.CNNES ---
History of Present Illness Consult date: 05/03/23 Reason for Consult: CVA History of Present Illness: The pt is 53 y/o male who is seen in neurologic consultation on 2022, via teleneurology. History is obtained from review of the chart, as well as from the pt. The pt reports that he began to experience chest pain yesterday. He states the chest pain has been occurring off and on for the past several days. In addition to the chest pain, he began to have slurring of his speech. The pt initially denies weakness of his extremities. He denies headache, difficulty with word finding, vision changes, paresthesias and difficulty swallowing. His girlfriend was present at the time of this event, and called 911. In the ER, the pt came in as a code stroke. Initial CT of the head was negative for acute hemorrhage and infarct. CTA of the head and neck are negative for significant stenosis and large vessel occlusion. The pt reports having a "mild stroke", 10 years ago. Past Medical History Past Medical History: Coronary Artery Disease (CAD), COPD, CVA/TIA Additional Past Medical History / Comment(s): TIA 2017 History of Any Multi-Drug Resistant Organisms: None Reported Past Surgical History: Unable to Obtain Past Anesthesia/Blood Transfusion Reactions: No Reported Reaction Past Psychological History: Unable to Obtain Smoking Status: Former smoker, Unknown if ever smoked Past Alcohol Use History: Occasional Past Drug Use History: None Reported Medications and Allergies Home Medications Medication Instructions Recorded Confirmed Type Aspirin EC [Ecotrin Low Dose] 81 mg PO DAILY 05/02/23 05/02/23 History Escitalopram [Lexapro] 5 mg PO HS 05/02/23 05/02/23 History Ezetimibe [Zetia] 10 mg PO DAILY 05/02/23 05/02/23 History Mv-Min/Folic/K1/Lycopen/Lutein 1 tab PO DAILY 05/02/23 05/02/23 History [Centrum Silver Men Tablet] Rosuvastatin Calcium [Crestor] 40 mg PO DAILY 05/02/23 05/02/23 History icosapent ethyL [Icosapent Ethyl] 2 gm PO BID-W/MEALS 05/02/23 05/02/23 History Allergies Allergy/AdvReac Type Severity Reaction Status Date / Time Penicillins Allergy Unknown Verified 05/02/23 22:24 Physical Examination - Vital Signs Vital Signs: Vital Signs Temp Pulse Resp BP Pulse Ox FiO2 05/03/23 09:00 71 19 146/96 94 L 05/03/23 08:30 63 16 136/98 95 05/03/23 08:00 97.6 F 61 18 140/98 96 05/03/23 07:30 61 16 138/96 95 05/03/23 07:00 67 9 L 134/98 95 05/03/23 06:00 63 14 123/86 94 L 05/03/23 05:00 68 11 L 127/86 95 05/03/23 04:00 98.2 F 73 13 113/86 95 05/03/23 03:00 75 12 121/86 93 L 05/03/23 02:06 21 05/03/23 02:00 71 18 129/86 95 05/03/23 01:30 97.5 F L 71 15 129/86 94 L 05/03/23 00:45 76 19 117/81 94 L 05/03/23 00:15 78 16 121/80 93 L 05/03/23 00:00 78 15 139/82 93 L 05/02/23 23:46 72 16 125/80 95 05/02/23 23:45 73 14 125/80 94 L 05/02/23 23:30 74 15 131/81 94 L 05/02/23 23:15 74 15 141/86 94 L 05/02/23 23:00 77 17 140/89 96 05/02/23 22:45 75 13 146/95 95 05/02/23 22:30 77 15 155/99 96 05/02/23 22:15 78 18 141/89 96 05/02/23 22:00 85 13 139/90 95 05/02/23 21:50 97.8 F 87 16 150/102 97 Intake and Output 05/02/23 05/03/23 05/03/23 22:59 06:59 14:59 Intake Total 40 Balance 40 Intake: Oral 40 Other: Voiding Method Urinal # Voids 0 0 Weight 97.069 kg 97.069 kg General: The pt is reclining in the bed. He is well nourished and in no acute distress HEENT: Atraumatic, normocephalic. Fundus not visualized. No scleral icterus. Mucous membranes moist. Neck: Supple, with carotid bruits Heart: Regular rate and rhythm Lungs: No obvious wheeze or cough Extremities: No edema Neurological examination Mental status: The pt is awake and alert. Oriented to name, age, , location, year, month. Speech is slow and slightly dysarthric. There is no anomia, right/left confusion. The pt is able to repeat phrases. Affect is flat. Cranial nerves: Pupils equal at 3mm, round and reactive to light. Visual de la garza full. Extraocular movements intact. Facial sensation intact. Left facial droop is present. Hearing grossly intact. Uvula and palate midline. Shoulder shrug diminished on the left. Tongue protrudes midline Motor: Strength (right/left), Porcelain Buildup Assistant 4/2. Biceps 4/1. Triceps 5/0-1. Hip flexors 4/1. Left extremities are not flaccid. Sensation: Intact to light touch. No extinction with double simultaneous stimulation Coordination: Right finger to nose testing is intact. Unable to perform on left secondary to weakness Deep tendon reflexes: 2+/4+ in the bilateral uppers. Patellar reflexes 3+/4+ Gait: Unable to assess Results - Laboratory Findings CBC and BMP: 05/03/23 03:43 05/03/23 03:43 Abnormal Lab Findings: Abnormal Labs 05/02/23 05/02/23 05/03/23 21:54 21:58 03:43 RBC INR 1.2 H Chloride Carbon Dioxide 21 L Glucose 116 H POC Glucose (mg/dL) 116 H ALT 60 H Creatine Kinase 488 H 05/03/23 05/03/23 03:43 03:43 RBC 4.26 L INR Chloride 108 H Carbon Dioxide Glucose 100 H POC Glucose (mg/dL) ALT Creatine Kinase - Diagnostic Findings Comments: CT of head and CTA images have been personally reviewed Assessment and Plan Assessment: 1. Left hemiparesis with left facial droop and dysarthria, likely secondary to CVA, involving right MCA territory S/P tpa 2. History of hypertension 3. History of hyperlipidemia 4. History of TIA/CVA Plan: 1. Stroke, S/P tpa orders have been placed 2. Agree with MRI of brain 3. In light of the pt's age, transesophageal echocardiogram may be considered 4. Cardiology consult for reported history of chest pain 5. Dual antiplatelet therapy for 21 days Thank you for allowing us to participate in the care of this pt. Dr. Hamlin will assume neurologic coverage of this pt as of 2022 Time with Patient: Greater than 30 (spent 50 minutes caring for this pt today, including obtaining a history, examining the pt, review of imaging, chart documentation, labs, placing orders and creating this note)
--- NOTE | 2023-05-03 14:37 | CT ---
EXAMINATION TYPE: CT brain wo con CT DLP: 1095.4 mGycm, Automated exposure control for dose reduction was used. DATE OF EXAM: 05/03/2023 2:29 PM COMPARISON: CTA head 05/02/2023, CT brain 06/29/2010.. CLINICAL INDICATION:Male, 53 years old with history of sudden headache, Sudden ZARATE TECHNIQUE: Brain: Axial CT images of the brain were obtained with coronal and sagittal reformats created and rev iewed. Contrast used: None. Oral contrast used: None. FINDINGS: Brain: Extra-axial spaces: No abnormal extra-axial fluid collections. Ventricular system: Within normal limits Cerebral parenchyma: No acute intraparenchymal hemorrhage or mass effect. The garcia-white junction is well differentiated. Cerebellum: Unremarkable. Mass effect: No evidence of midline shift. Intracranial vasculature: unremarkable Soft tissues: Normal. Calvarium/osseous structures: No depressed skull fracture. Paranasal sinuses and mastoid air cells: Mild scattered paranasal sinus disease. Visualized orbits: Orbital contents are intact. IMPRESSION: No acute intracranial process.
[2023-05-03] MEDS: Icosapent Ethyl [Icosapent Ethyl] 1 GM Capsule PO SCH (17:36)
[2023-05-03] MEDS: ESCITALOPRAM 5 MG TAB PO SCH (17:36)
[2023-05-04 04:19] LABS: Basophils % (A) 1 %; Eosinophils # (A) 0.4 k/uL (0-0.7); Eosinophils % (A) 7 %; HCT 42.7 % (39.0-53.0); HGB 14.3 gm/dL (13.0-17.5); Lymphocytes # (A) 1.4 k/uL (1.0-4.8); Lymphocytes % (A) 24 %; MCH 32.4 pg (25.0-35.0); MCHC 33.6 g/dL (31.0-37.0); MCV 96.4 fL (80.0-100.0); Monocytes # (A) 0.3 k/uL (0-1.0); Monocytes % (A) 5 %; Neutrophils # (A) 3.6 k/uL (1.3-7.7); Neutrophils % (A) 62 %; Platelet Count 171 k/uL (150-450); RBC 4.43 m/uL (4.30-5.90); RDW 12.4 % (11.5-15.5); WBC 5.9 k/uL (3.8-10.6)
[2023-05-04 04:42] LABS: African American GFR (CKD) >90 (>60 ml/min/1.73 sqM); Anion Gap 7 mmol/L; Blood Urea Nitrogen 16 mg/dL (9-20); Calcium 8.7 mg/dL (8.4-10.2); Carbon Dioxide 25 mmol/L (22-30); Chloride 108 mmol/L (98-107); Glucose 84 mg/dL (74-99); Non-African American GFR(CKD) >90 (>60 ml/min/1.73 sqM); Sodium 140 mmol/L (137-145)
--- NOTE | 2023-05-04 07:55 | P.PN ---
Subjective Progress Note Date: 05/04/23 This is a 53-year-old male patient with a known history of hyperlipidemia, anxiety/depression obstructive sleep apnea on CPAP at 10 cm of water. He presented to the emergency room last evening after developing aphasia and left- sided weakness. Code stroke was activated and he was seen by neurology who d eemed him qualified for alteplase administration. Computed tomography scan of the brain revealed no acute intracranial abnormality. CT angiogram revealed no significant carotid stenosis. No intracranial major vascular occlusion or significant stenosis, no sizable aneurysm. Chest x-ray reveals some basilar atelectasis with a shallow inspiration. White count 5.7. Hemoglobin 13.9. Platelets 180. Sodium 140. Potassium 4.3. Bicarb 23. BUN 12. Creatinine 0.96. Glucose 100. He is seen today in consultation in the intensive care unit. He is awake and alert. He still has a left-sided facial droop and left- sided weakness and unable to resist gravity. Current NIH score of 9. He has poli e mild to moderate slurring of words. He is maintaining good O2 saturations in the 90s on room air. He's afebrile. Hemodynamically stable. On 05/04/2023, the patient is still in the intensive care unit being followed followed up following is an acute CVA. The patient has weakness bilaterally. Initial presentation work for left-sided weakness, dysarthria and left facial droop. The patient received thrombolytics on 05/02/2023. The repeat CAT scan of the brain was done on 05/03/2023 at 1433 and it showed no acute intracranial process. The patient currently still having weakness bilaterally. Motor function is quite limited and the strength is approximately 3 out of 5 both upper and lower extremities. He is able to speak full sentences. Is not having any aphasia. He is slightly delayed. Sodiums of 140, potassium is at 4, BUN is at 60 with a creatinine of 0.9. The previous count of 5.9, he was 14.4. The patient is having an echocardiogram today. His cardiac rhythm is sinus. Neurology is on the case. Hemodynamically, he is stable, no hypotension, no hypertension. No fever. Encounter some headaches yesterday currently is free of any headache. He is on a CPAP regarding his obstructive sleep apnea which is at a pressure of 10 cm of water. Objective - Vital Signs Vital signs: Vital Signs Temp 98.1 F 05/04/23 04:00 Pulse 72 05/04/23 07:00 Resp 14 05/04/23 07:00 BP 132/86 05/04/23 07:00 Pulse Ox 94 L 05/04/23 07:00 FiO2 21 05/04/23 03:54 Intake & Output 05/03/23 05/04/23 05/04/23 18:59 06:59 18:59 Intake Total 440 1300 Output Total 1392 550 Balance -952 750 Weight 100.3 kg Intake: Intake, IV Titration 400 1300 Amount Sodium Chloride 0.9% 1, 400 1300 000 ml @ 100 mls/hr IV . Q10H [facility] Rx#:[id number] Oral 40 Output: Urine 1150 410 Post Void Residual 242 140 Other: Voiding Method Urinal Urinal # Voids 0 - Exam GENERAL EXAM: Alert, 53-year-old male, on room air, comfortable in no apparent distress. The patient is still on a CPAP at a pressure of 10 cm of water which she uses overnight. HEAD: Normocephalic. Left sided facial droop EYES: Normal reaction of pupils, equal size. NOSE: Clear with pink turbinates. THROAT: No erythema or exudates. NECK: No masses, no JVD. CHEST: No chest wall deformity. LUNGS: Equal air entry with no crackles, wheeze, rhonchi or dullness. CVS: S1 and S2 normal with no audible murmur, regular rhythm. ABDOMEN: No hepatosplenomegaly, normal bowel sounds, no guarding or rigidity. SPINE: No scoliosis or deformity SKIN: No rashes CENTRAL NERVOUS SYSTEM: The upper and lower extremity weakness, unable to resist gravity, tone is normal in all 4 extremities. Motor function is around 3 out of 5 in all 4 extremities. Speech is delayed. Speech is adequate at its delayed. EXTREMITIES: There is no peripheral edema. No clubbing, no cyanosis. Peripheral pulses are intact. - Labs CBC & Chem 7: 05/04/23 03:27 05/04/23 03:27 Labs: Abnormal Lab Results - Last 24 Hours (Table) 05/04/23 Range/Units 03:27 Chloride 108 H (98-107) mmol/L Assessment and Plan Plan: Acute cerebrovascular accident resulting in left-sided weakness, initial aphasia and left-sided facial droop. Received alteplase at 22:10 on 05/02/2023, still having motor weakness bilaterally. Neurology is on the case. Echocardiogram is in progress. Hemodynamically stable. Cardiac rhythm is sinus. The patient limited on aspirin on outpatient basis. History of TIA 7 months ago Hyperlipidemia Anxiety/depression Obstructive sleep apnea, on CPAP, currently on a CPAP pressure of 10 cm of water Plan: Echo to be done today We will remove the CPAP once the patient is fully awake Provide incentive spirometer Lipid profile Continue to monitor closely here in the intensive care unit Continue neurologic evaluations Follow-up CT scan of the brain this evening MRI of the brain today Neurology is consulted Start aspirin Swallow evaluation We will continue to follow and make further recommendations based on his clinical status
[2023-05-04] MEDS: EZETIMIBE 10 MG TAB PO SCH (08:52)
[2023-05-04] MEDS: MULTIVITAMINS, THERA 1 EACH TAB PO SCH (08:52)
[2023-05-04] MEDS: ATORVASTATIN 80 MG TAB PO SCH (08:52)
[2023-05-04] MEDS: SODIUM CHLORIDE 0.9% 1,000 ML IV SCH (10:30)
[2023-05-04 11:01] LABS: Chol/HDL Ratio 5.64 Ratio; LDL Cholesterol,Calculated 107.7 mg/dL (0.0-131.0)
--- NOTE | 2023-05-04 11:51 | CA ---
Transthoracic Echo Report Name: Sean Stapleton Age: 53 Gender: M : 1970 Exam Date: 05/04/2023 07:34 Exam Location: [facility] Ht (in): 74 Wt (lb): 214 Ordering Physician: Neela Thomas DO Attending/Referring Phys: Pneumatic Tool Repairer Naty Marcelino RDCS Procedure CPT: Indications: CVA Cardiac Hx: Technical Quality: Poor Contrast 1: Total Dose (mL): Contrast 2: Total Dose (mL): MEASUREMENTS (Male / Female) Normal Values 2D ECHO LV Diastolic Diameter PLAX 4.3 cm 4.2 - 5.9 / 3.9 - 5.3 cm LV Systolic Diameter PLAX 2.9 cm IVS Diastolic Thickness 1.3 cm 0.6 - 1.0 / 0.6 - 0.9 cm LVPW Diastolic Thickness 1.1 cm 0.6 - 1.0 / 0.6 - 0.9 cm LV Relative Wall Thickness 0.6 RV Internal Dim ED PLAX 3.6 cm LA Systolic Diameter LX 3.4 cm 3.0 - 4.0 / 2.7 - 3.8 cm LV Diastolic Volume MOD BP 62.3 cm??? 67 - 155 / 56 - 104 cm??? LV Systolic Volume MOD BP 21.5 cm??? 22 - 58 / 19 - 49 cm??? LV Ejection Fraction MOD BP 65.6 % >= 55 % LV Cardiac Index MOD BP 1333.9 cm???/min???m??? LV Diastolic Volume MOD 4C 71.2 cm??? LV Systolic Volume MOD 4C 25.7 cm??? LV Ejection Fraction MOD 4C 63.9 % LV Cardiac Index MOD 4C 1486.9 cm???/min???m??? LV Diastolic Length 4C 8.3 cm LV Systolic Length 4C 6.7 cm LV Diastolic Volume MOD 2C 54.2 cm??? LV Systolic Volume MOD 2C 20.1 cm??? LV Ejection Fraction MOD 2C 62.9 % LV Cardiac Index MOD 2C 1114.7 cm???/min???m??? LV Diastolic Length 2C 8.0 cm LV Systolic Length 2C 6.6 cm LA Volume 51.9 cm??? 18 - 58 / 22 - 52 cm??? LA Volume Index 22.9 cm???/m??? 16 - 28 cm???/m??? M-MODE Aortic Root Diameter MM 3.7 cm AV Cusp Separation MM 2.2 cm DOPPLER AV Peak Velocity 146.6 cm/s AV Peak Gradient 8.6 mmHg MV Area PHT 3.6 cm??? Mitral E Point Velocity 75.3 cm/s Mitral A Point Velocity 83.5 cm/s Mitral E to A Ratio 0.9 MV Deceleration Time 212.3 ms MV E' Velocity 10.5 cm/s Mitral E to MV E' Ratio 7.2 FINDINGS Left Ventricle Left ventricular ejection fraction is estimated at 55-60 %. Left ventricular cavity size normal. Mildly increased septal wall thickness. Right Ventricle Mild right ventricular dilatation. Unable to estimate the right ventricular systolic pressure. Right Atrium Normal right atrial size. Left Atrium Normal left atrial size. Mitral Valve Structurally normal mitral valve. No mitral stenosis, regurgitation or prolapse. Aortic Valve Aortic valve not well visualized. No aortic valve stenosis or regurgitation. Tricuspid Valve Structurally normal tricuspid valve. No tricuspid stenosis, regurgitation or prolapse. Pulmonic Valve Structurally normal pulmonic valve. No pulmonic regurgitation. Pericardium No pericardial effusion. Aorta Normal size aortic root and proximal ascending aorta. CONCLUSIONS Technically difficult study with poor acoustic windows Normal LV systolic function Previewed by: Dr. Marcos Nava MD (Electronically Signed) Final Date: 04 May 2023 11:50
[2023-05-04] MEDS: CLOPIDOGREL 75 MG TAB PO SCH (12:05)
[2023-05-04] MEDS: ASPIRIN 81 MG PO SCH (12:05)
--- NOTE | 2023-05-04 13:26 | P.PN ---
Subjective Progress Note Date: 05/04/23 I'm seeing the patient for the first time during this admission. He is accompanied with his girlfriend is at bedside. It seems this past Thursday patient had an episode of speech difficulty with weakness over the left side. Per the girlfriend he's making improvement and moving the left side much better and speech is better compared to initial presentation. She received IV TPA because of his the likely stroke. Patient is not compliant taking his aspirin daily. Denies any history of atrial fibrillation or flutter. He states that he has chest pain time to time prior to this. Objective - Vital Signs Vital signs: Vital Signs Temp 98.6 F 05/04/23 12:00 Pulse 86 05/04/23 12:00 Resp 12 05/04/23 12:00 BP 163/96 05/04/23 12:00 Pulse Ox 95 05/04/23 12:00 FiO2 21 05/04/23 03:54 Intake & Output 05/03/23 05/04/23 05/04/23 18:59 06:59 18:59 Intake Total 440 1300 200 Output Total 1392 550 0 Balance -952 750 200 Weight 100.3 kg Intake: Intake, IV Titration 400 1300 100 Amount Sodium Chloride 0.9% 1, 400 1300 100 000 ml @ 100 mls/hr IV . Q10H [facility] Rx#:[id number] Oral 40 100 Output: Urine 1150 410 0 Post Void Residual 242 140 Other: Voiding Method Urinal Urinal # Voids 0 - Exam GENERAL: The patient is lying in bed and is not in acute distress. NEUROLOGICAL: Higher mental function: The patient is awake, alert, oriented to self, place and time. Patient is following commands. Has expressive aphasia and mildly slow. Cranial nerves: The pupils are round, equal and reactive to light. Visual de la garza are full to confrontation throughout. Extraocular movement is intact no nystagmus is noted. Facial sensation is normal to touch throughout. The facial strength is normal throughout. Tongue is midline and moved [id number] without any difficulty. No dysarthria is noted. Shoulder shrug is normal bilaterally. Motor: The strength is 3-4 over the left side. Otherwise 5 over 5 throughout right. Normal tone and bulk. Cerebellum: Somewhat slow doing finger to nose on the left but no dysmetria or ataxia. Normal on the right. . Sensation: Sensation is normal to touch throughout. SOME OF THE WORK-UP DURING THIS HOSPITAL VISIT CONSISTED OF: Lipid panel is triglyceride 169, cholesterol is 172, LDLs 107 and HDL is 30. Repeat CT of the head post IV tPA is reported as no acute intracranial process. I personally reviewed the CT of the head and I agree with the report. CT angiography of the head and neck was reported as no dissection hemodynamically significant stenosis or pseudoaneurysm detected in the carotid or vertebral artery in the neck. For the head it's reported as no intracranial major vascular occlusion or significant stenosis or sizable aneurysm detected in the limits of CT angiography. 2-D echo was reported as technically difficult study with poor acoustical 1 dose. Normal left ventricle systolic function. - Labs CBC & Chem 7: 05/04/23 03:27 05/04/23 03:27 Labs: Abnormal Lab Results - Last 24 Hours (Table) 05/04/23 Range/Units 03:27 Chloride 108 H (98-107) mmol/L Triglycerides 169.00 H (0.00-149.00) mg/dL HDL Cholesterol 30.50 L (40.00-60.00) mg/dL Assessment and Plan Assessment: This is a 53-year-old gentleman who presented emergency department because of the expressive aphasia and left-sided hemiparesis him a left facial droop and dysarthria. Patient received IV TPA. Acute ischemic stroke a post-IV TPA. Patient's symptoms are expressive aphasia and left hemiparesis, facial droop and dysarthria. History of TIA Plan: The patient started on aspirin 81 mg daily. In addition I start the patient on Plavix 75 mg daily. Patient is not compliant taking aspirin at home. Patient is on Lipitor 80 mg daily. Pending MRI of the brain I agree with Dr. Thomas of pursuing transesophageal echocardiogram Recommend a 30 day event monitor and if negative loop record, especially with chest pain that he has been having intermittently. Continue neuro checks Cardiac monitoring PT OT and [employer] are consulted Will defer the rest of medical management to the primary team. For DVT prophylaxis: I started patient on subq heparin 5000IU every 12 hours. The plan is discussed with patient, his girlfriend and primary team. Will continue to follow. Time with Patient: Less than 30
--- NOTE | 2023-05-04 14:50 | P.CRDCN ---
History of Present Illness Consult date: 05/04/23 History of present illness: History of Present Illness: The patient is a 53-year-old male with a known history of hyperlipidemia, chronic obstructive lung disease, prior history of smoking who presented with speech disturbance and left sided weakness. He was found to have evidence of acute CVA and received TPA with improvement of his symptoms. Cardiology consultation was requested for ISMAEL. The patient is active physically, denies any exertional chest discomfort although he has occasional chest pain not activity related. He has mild dyspnea on exertion, he has no PND, orthopnea or peripheral edema. He has occasional palpitations but no documented history of a trial fibrillation. His echocardiogram was technically difficult but showed no significant abnormalities. He has been in sinus mechanism since his admission. He has no prior cardiac history and no recent cardiac workup. He has been hemodynamically stable since his admission. Medications: Lexapro, Crestor 40 mg daily, aspirin once a day, Ezetimibe 10 mg daily Review of Systems: Respiratory: He has a history of COPD with mild dyspnea on exertion GI: No nausea or vomiting . No history of peptic ulcer disease. No recent GI bleed. : No hematuria or dysuria. Nervous System: No stroke or seizure. Physical Examination: Blood pressure 53-year-old male, alert and oriented no apparent distress with some slow speech, blood pressure 137/80 Heart rate 80 Head: Normocephalic. Mild weakness on the left side Eyes: Sclerae nonicteric. Neck: Good carotid upstroke, no bruit, no jugular venous distention. Lungs: Clear to auscultation. Heart: Regular rate and rhythm, S1-S2, no S3, no rub. No murmur. Abdomen: Soft nontender, positive bowel sounds no organomegaly. Extremities: No edema, intact distal pulses. Labs: Hemoglobin 14.3, BUN 16, creatinine 0.97. Cholesterol 172, LDL 107. Troponin l ess than 0.012. Head CT shows no acute bleeding CT angiogram shows no aneurysm or evidence of significant carotid stenosis EKG: Sinus mechanism with no acute ST segment changes Impression: 1. Status post CVA, etiology unclear, no history of atrial fibrillation 2. History of COPD 3. History of hyperlipidemia 4. History of obstructive sleep apnea Plan: 1. Proceed with transesophageal echocardiogram, the risks and the complications were discussed with the patient 2. Depending on the results testing further cardiac workup will be needed to rule out cardiac source for his symptoms 3. Continue statin 4. Dual antiplatelets treatment for now per neurology 5. Thank you for this consult we will follow with you Past Medical History Past Medical History: Coronary Artery Disease (CAD), COPD, CVA/TIA Additional Past Medical History / Comment(s): TIA 2017 History of Any Multi-Drug Resistant Organisms: None Reported Past Surgical History: Unable to Obtain Past Anesthesia/Blood Transfusion Reactions: No Reported Reaction Past Psychological History: Unable to Obtain Smoking Status: Former smoker, Unknown if ever smoked Past Alcohol Use History: Occasional Past Drug Use History: None Reported Medications and Allergies Home Medications Medication Instructions Recorded Confirmed Type Aspirin EC [Ecotrin Low Dose] 81 mg PO DAILY 05/02/23 05/02/23 History Escitalopram [Lexapro] 5 mg PO HS 05/02/23 05/02/23 History Ezetimibe [Zetia] 10 mg PO DAILY 05/02/23 05/02/23 History Mv-Min/Folic/K1/Lycopen/Lutein 1 tab PO DAILY 05/02/23 05/02/23 History [Centrum Silver Men Tablet] Rosuvastatin Calcium [Crestor] 40 mg PO DAILY 05/02/23 05/02/23 History icosapent ethyL [Icosapent Ethyl] 2 gm PO BID-W/MEALS 05/02/23 05/02/23 History Allergies Allergy/AdvReac Type Severity Reaction Status Date / Time Penicillins Allergy Unknown Verified 05/02/23 22:24 Physical Exam Vitals: Vital Signs Temp Pulse Pulse Resp BP BP Pulse Ox 05/04/23 12:00 98.6 F 86 12 163/96 95 05/04/23 08:00 99.2 F 76 12 137/88 96 05/04/23 07:00 72 14 132/86 94 L 05/04/23 06:00 64 11 L 135/92 97 05/04/23 05:00 67 13 132/89 95 05/04/23 04:00 98.1 F 61 10 L 133/88 96 05/04/23 03:54 05/04/23 03:00 64 12 141/91 95 05/04/23 02:00 64 12 141/87 95 05/04/23 01:00 64 11 L 127/89 96 05/04/23 00:35 05/04/23 00:00 98.4 F 62 10 L 131/89 95 05/03/23 23:00 65 12 141/84 95 05/03/23 22:00 63 12 130/83 93 L 05/03/23 21:00 66 13 134/91 93 L 05/03/23 20:00 97.9 F 67 12 138/88 95 05/03/23 19:00 69 15 125/82 94 L 05/03/23 18:00 68 16 135/81 95 05/03/23 17:00 63 14 135/84 95 05/03/23 16:00 97.7 F 64 16 139/88 95 05/03/23 15:00 65 18 140/92 96 FiO2 05/04/23 12:00 05/04/23 08:00 05/04/23 07:00 05/04/23 06:00 05/04/23 05:00 05/04/23 04:00 05/04/23 03:54 21 05/04/23 03:00 05/04/23 02:00 05/04/23 01:00 05/04/23 00:35 21 05/04/23 00:00 05/03/23 23:00 05/03/23 22:00 05/03/23 21:00 05/03/23 20:00 05/03/23 19:00 05/03/23 18:00 05/03/23 17:00 05/03/23 16:00 05/03/23 15:00 Intake and Output 05/03/23 05/04/23 05/04/23 22:59 06:59 14:59 Intake Total 800 900 200 Output Total 1492 0 0 Balance -692 900 200 Intake: Intake, IV Titration 800 900 100 Amount Sodium Chloride 0.9% 1, 800 900 100 000 ml @ 100 mls/hr IV . Q10H [facility] Rx#:[id number] Oral 100 Output: Urine 1110 0 0 Post Void Residual 382 Other: Voiding Method Urinal Urinal Weight 100.3 kg Results 05/04/23 03:27 05/04/23 03:27 Lipids 05/04/23 Range/Units 03:27 Triglycerides 169.00 H (0.00-149.00) mg/dL Cholesterol 172.00 (0.00-200.00) mg/dL HDL Cholesterol 30.50 L (40.00-60.00) mg/dL Cholesterol/HDL Ratio 5.64 Ratio CBC 05/04/23 Range/Units 03:27 WBC 5.9 (3.8-10.6) k/uL RBC 4.43 (4.30-5.90) m/uL Hgb 14.3 (13.0-17.5) gm/dL Hct 42.7 (39.0-53.0) % Plt Count 171 (150-450) k/uL Comprehensive Metabolic Panel 05/04/23 Range/Units 03:27 Sodium 140 (137-145) mmol/L Potassium 4.0 (3.5-5.1) mmol/L Chloride 108 H (98-107) mmol/L Carbon Dioxide 25 (22-30) mmol/L BUN 16 (9-20) mg/dL Creatinine 0.97 (0.66-1.25) mg/dL Glucose 84 (74-99) mg/dL Calcium 8.7 (8.4-10.2) mg/dL Current Medications Generic Name Dose Route Start Last Admin Trade Name Freq PRN Reason Stop Dose Admin Aspirin 81 mg 05/04/23 09:45 05/04/23 12:05 Aspirin 81 Mg PO 81 mg DAILY [facility] Administration Atorvastatin Calcium 80 mg 05/03/23 11:00 05/04/23 08:52 Atorvastatin 80 Mg Tab PO 80 mg DAILY [facility] Administration Clopidogrel Bisulfate 75 mg 05/04/23 12:00 05/04/23 12:05 Clopidogrel 75 Mg Tab PO 75 mg DAILY [facility] Administration Ezetimibe 10 mg 05/03/23 11:00 05/04/23 08:52 Ezetimibe 10 Mg Tab PO 10 mg DAILY [facility] Administration Escitalopram Oxalate 5 mg 05/03/23 21:00 05/03/23 17:36 Escitalopram 5 Mg Tab PO Not Given HS [facility] Heparin Sodium (Porcine) 5,000 unit 05/04/23 21:00 Heparin Sodium,Porcine 5,000 Unit/Ml 1 Ml Vial SQ Q12HR [facility] Sodium Chloride 1,000 mls @ 100 mls/hr 05/03/23 13:45 05/04/23 10:30 Saline 0.9% IV 100 mls/hr .Q10H [facility] Administration Losartan Potassium 50 mg 05/04/23 13:30 Losartan 50 Mg Tab PO DAILY [facility] Multivitamins 1 each 05/04/23 09:00 05/04/23 08:52 Multivitamins, Thera 1 Each Tab PO 1 each DAILY [facility] Administration Naloxone HCl 0.2 mg 05/03/23 01:12 Naloxone 0.4 Mg/Ml 1 Ml Vial IV Q2M PRN Opioid Reversal Icosapent Ethyl [ 2 gm 05/03/23 17:30 05/03/23 17:36 Icosapent Ethyl] 1 PO Not Given Gm Capsule BID-W/MEALS [facility] Intake and Output 05/03/23 05/04/23 05/04/23 22:59 06:59 14:59 Intake Total 800 900 200 Output Total 1492 0 0 Balance -692 900 200 Intake: Intake, IV Titration 800 900 100 Amount Sodium Chloride 0.9% 1, 800 900 100 000 ml @ 100 mls/hr IV . Q10H [facility] Rx#:[id number] Oral 100 Output: Urine 1110 0 0 Post Void Residual 382 Other: Voiding Method Urinal Urinal Weight 100.3 kg 05/04/23 03:27 05/04/23 03:27
[2023-05-04] MEDS: LOSARTAN 50 MG TAB PO SCH (15:02)
[2023-05-04] MEDS: Icosapent Ethyl [Icosapent Ethyl] 1 GM Capsule PO SCH ×2 (15:23→18:26)
--- NOTE | 2023-05-04 15:48 | P.PN ---
Subjective Progress Note Date: 05/04/23 HISTORY OF PRESENT ILLNESS: This is a 53-year-old male with a previous medical history significant for mixed hyperlipidemia, history of TIA, enlarged prostate, chronic obstructive pulmonary disease, obstructive sleep apnea, quit cigarette smoking about 5 months ago, patient presented to the emergency department at [facility] with the left sided weakness associated with aphasia and left-sided facial droop he was living with his girlfriend when she noticed the changes and she called 911 at around 9:15 PM he came to the ER and he was evaluated by Dr. Jacobo Culver patient had a computed tomography scan of the brain that was negative for acute infarct or bleed at that time, was followed by CTA of the neck and the brain that did not show any evidence of any carotid artery stenosis or any dissection and no sizable aneurysm or thrombosis patient was at the window for alteplase which he received and he was admitted to the intensive care unit, he was seen in consultation by critical care medicine Dr. Hamlin as well as neurology, MRI was orders pending the time of dictation,along with echocardiogram patient was admitted for further evaluation and treatment. 05/04: Remains in the intensive care unit. He underwent a second a CAT scan of the brain yesterday afternoon that did not show any acute findings. He is scheduled for MRI of the brain today at 3:15. He has been seen by neurology recommending ISMAEL and cardiology consult was placed with plan for ISMAEL tomorrow. Patient was evaluated by 6 therapy and did well with swallowing but has been started on a chopped diet, no signs of aspiration. Echocardiogram reveals a technically difficult study with normal LV systolic function. Tricuspid is 169, cholesterol 172, LDL 107, HDL 30. Blood pressure 163/96 and losartan 50 no grams daily added. Patient is also been seen by physical therapy and occupational therapy with recommendations for inpatient rehab. REVIEW OF SYSTEMS: Constitutional: No documented fever, no chills, no night sweats. No weight change. No weakness, fatigue or lethargy. No daytime sleepiness. EENT: No headache. No blurred vision or double vision, no loss of vision. No loss of Hearing, no ringing in the ears, no dizziness. No nasal drainage or congestion. No epistaxis. No sore throat. Lungs: No shortness of breath, no cough, no sputum production. No wheezing. Reports dyspnea with activity. Cardiovascular: No chest pain, no lower extremity edema. No palpitations. No paroxysmal nocturnal dyspnea. No orthopnea. No lightheadedness or dizziness. No syncopal episodes. Abdominal: Reports abdominal pain. No nausea, vomiting. No diarrhea. No constipation. No bloody or tarry stools reports loss of appetite. Genitourinary: No dysuria, increased frequency, urgency. No urinary retention. Musculoskeletal: No myalgias. No muscle weakness, no gait dysfunction, no frequent falls. No back pain. No neck pain. Integumentary: No wounds, no lesions. No rash or pruritus. No unusual bruising. No change in hair or nails. Neurologic: No aphasia. No facial droop. No change in mentation. No head injury. No headache. No paralysis. No paresthesia. Psychiatric: No depression. No anxiety. No mood swings. Endocrine: No abnormal blood sugars. No weight change. PHYSICAL EXAMINATION: General: 53-year-old male laying down in bed in no apparent distress. HEENT: Head is atraumatic, normocephalic, pupils were equal round reactive to light and recommendation, extraocular muscle movement were intact, sclera nonicteric, conjunctivae were pale, mucous membranes of the mouth are somewhat dry. Neck: Supple, no JVP, normal carotid upstroke bilaterally, no lymphadenopathy. Chest: Decreased breath sounds at the bases, few rhonchi, no expiratory wheezes, no chest wall tenderness, no intercostal retractions. Heart: First heart sound is normal, second heart sound is normal there is no gallop or murmur. Abdomen: Soft, nontender, nondistended, positive bowel sounds. Extremities: There is no edema no calf tenderness DP +2 bilaterally. Neurologic examination: Patient is awake alert and oriented X3, cranial nerves II-12 appear grossly intact, muscle power were 5 out of 5 in upper extremities and 5 out of 5 in bilateral lower extremities, deep tendon reflexes normal bilaterally. ASSESSMENT AND PLAN: 1. Acute ischemic cerebral vascular accident with left-sided weakness did receive alteplase after a negative computed tomography scan of the brain and a negative CT angiography of the neck and the brain x2. MRI of the brain with and without gadolinium today, patient was seen in consultation by neurology as well as by critical care medicine, continue neuro check around the clock, continue to monitor the patient very closely. She, OT, speech therapy consults. Recommendations for inpatient rehab. Consult placed with rehab medicine. 2. Mixed hyperlipidemia continue patient on atorvastatin 80 mg once every day as well as zetia 10 mg once every day, monitor the patient with pedal, keep LDL 55-70. 3. Obstructive sleep apnea. Continue patient on CPAP. 4. Enlarged prostate. Stable. We'll continue to monitor for urinary retention. Try to straight cath for residual volume greater than 300 5. History of TIA continue treatment as in paragraph #1. 6. History of tobacco use and dependence. Patient was scheduled to go for a low-dose computed tomography scan of the lung as a screen for colon cancer. 7. Vitamin D deficiency. Continue patient on vitamin D3 supplement 1999 and once every day. 8. DVT prophylaxis. Bilateral knee-high GERMAIN hose. 9. GI prophylaxis. Continue Protonix 40 mg IV push every 24 hours. 10. Full code. Impression and plan of care have been directed as dictated by the signing physician. Marycruz Joyce nurse practitioner acting as scribe for signing physician. Objective - Vital Signs Vital signs: Vital Signs Temp 98.6 F 05/04/23 12:00 Pulse 86 05/04/23 12:00 Resp 12 05/04/23 12:00 BP 163/96 05/04/23 12:00 Pulse Ox 95 05/04/23 12:00 FiO2 21 05/04/23 03:54 Intake & Output 05/03/23 05/04/23 05/04/23 18:59 06:59 18:59 Intake Total 440 1300 200 Output Total 1392 550 0 Balance -952 750 200 Weight 100.3 kg Intake: Intake, IV Titration 400 1300 100 Amount Sodium Chloride 0.9% 1, 400 1300 100 000 ml @ 100 mls/hr IV . Q10H ISRA Rx#:[id number] Oral 40 100 Output: Urine 1150 410 0 Post Void Residual 242 140 Other: Voiding Method Urinal Urinal # Voids 0 - Labs CBC & Chem 7: 05/04/23 03:27 05/04/23 03:27 Labs: Abnormal Lab Results - Last 24 Hours (Table) 05/04/23 Range/Units 03:27 Chloride 108 H (98-107) mmol/L Triglycerides 169.00 H (0.00-149.00) mg/dL HDL Cholesterol 30.50 L (40.00-60.00) mg/dL
--- NOTE | 2023-05-04 16:48 | MR ---
EXAMINATION TYPE: MR brain wo con DATE OF EXAM: 05/04/2023 COMPARISON: CT brain 05/03/2023 HISTORY: CVA CONTRAST: Performed utilizing 0 mL intravenous Gadavist gadolinium contrast. TECHNIQUE: Multiplanar, multiecho imaging on a 3.0 Jenni magnet is performed through the brain. Stud y is performed within 24 hours of arrival to the hospital. The craniovertebral junction is normal. The pituitary is normal. Optic chiasm appears normal Diffusion-weighted imaging is performed. No abnormal hyperintensity is present to suggest an acute i ntracranial infarct or acute ischemic change. Signal of the brain appears normal. Ventricles and sulci are appropriate for the patient age. IMPRESSION: 1. No acute intracranial process.
[2023-05-04] MEDS: HEPARIN SODIUM,PORCINE 5,000 UNIT/ML 1 ML VIAL SQ SCH (20:17)
[2023-05-04] MEDS: ESCITALOPRAM 5 MG TAB PO SCH (20:17)
[2023-05-05] MEDS ORDERED: ACETAMINOPHEN TAB 325 MG TAB PO PRN ×2 (02:39→02:43)
[2023-05-05 04:43] LABS: Basophils % (A) 0 %; Eosinophils # (A) 0.1 k/uL (0-0.7); Eosinophils % (A) 3 %; HCT 38.8 % (39.0-53.0); Lymphocytes # (A) 0.8 k/uL (1.0-4.8); Lymphocytes % (A) 18 %; MCH 31.9 pg (25.0-35.0); MCHC 33.4 g/dL (31.0-37.0); MCV 95.4 fL (80.0-100.0); Monocytes # (A) 0.4 k/uL (0-1.0); Monocytes % (A) 10 %; Neutrophils # (A) 2.8 k/uL (1.3-7.7); Neutrophils % (A) 66 %; Platelet Count 147 k/uL (150-450); RBC 4.07 m/uL (4.30-5.90); RDW 12.3 % (11.5-15.5); WBC 4.2 k/uL (3.8-10.6)
[2023-05-05 04:53] LABS: African American GFR (CKD) >90 (>60 ml/min/1.73 sqM); Anion Gap 10 mmol/L; Blood Urea Nitrogen 12 mg/dL (9-20); Calcium 8.1 mg/dL (8.4-10.2); Carbon Dioxide 22 mmol/L (22-30); Chloride 104 mmol/L (98-107); Glucose 93 mg/dL (74-99); Non-African American GFR(CKD) 86 (>60 ml/min/1.73 sqM); Sodium 136 mmol/L (137-145)
--- NOTE | 2023-05-05 07:27 | P.PN ---
Subjective Progress Note Date: 05/05/23 PROGRESS NOTE The patient is a 53-year-old male with a known history of hyperlipidemia, chronic obstructive lung disease, prior history of smoking who presented with speech disturbance and left sided weakness. He was found to have evidence of acute CVA and received TPA with improvement of his symptoms. Cardiology consultation was requested for ISMAEL. The patient is active physically, denies any exertional chest discomfort although he has occasional chest pain not activity related. He has mild dyspnea on exertion, he has no PND, orthopnea or peripheral edema. He has occasional palpitations but no documented history of atrial fibrillation. His echocardiogram was technically difficult but showed no significant abnormalities. He has been in sinus mechanism since his admission. He has no prior cardiac history and no recent cardiac workup. He has been hemodynamically stable since his admission. May 05: The patient is feeling well this morning, he denies any chest discomfort, dizziness or palpitations. He continues to be in sinus mechanism. Hemodynamically he stable. He is scheduled to undergo a ISMAEL today to rule out intracardiac source for his neurological event. Brain MRI showed no acute intracranial abnormality Medications: Aspirin, Lipitor 80 mg daily, Plavix 75 g daily, Cipro 5 mg daily, losartan 50 mg daily, Ezetimibe 10 milligrams daily PHYSICAL EXAMINATION: Blood pressure 140/80 heart rate 60, temperature 100.8 LUNGS: Clear to auscultation HEART: Regular rate and rhythm, S1, S2. No S3. No systolic murmur ABDOMEN: Soft, nontender, no organomegaly EXTREMETIES: No edema LAB: WBC 4.2, hemoglobin 13, BUN 12, creatinine 1 IMPRESSION: 1. Status post CVA, etiology unclear 2. Febrile episode workup in progress 3. History of hypertension 4. History of hyperlipidemia PLAN: 1. Continue present therapy 2. Proceed with ISMAEL today to further evaluate any possible intracardiac source for CVA 3. Depending on his progress further recommendations will be made Objective - Vital Signs Vital signs: Vital Signs Temp 100.4 F H 05/05/23 04:00 Pulse 61 05/05/23 04:00 Resp 18 05/05/23 04:00 BP 140/88 05/05/23 04:00 Pulse Ox 97 05/05/23 04:00 FiO2 21 05/05/23 01:06 Intake & Output 05/04/23 05/05/23 05/05/23 18:59 06:59 18:59 Intake Total 1600 700 Output Total 1000 1425 Balance 600 -725 Weight 98.6 kg Intake: IV 700 Sodium Chloride 0.9% 1, 700 000 ml @ 100 mls/hr IV . Q10H ISRA Rx#:[id number] Intake, IV Titration 500 Amount Sodium Chloride 0.9% 1, 500 000 ml @ 100 mls/hr IV . Q10H ISRA Rx#:[id number] Oral 1100 Output: Urine 1000 1425 Other: Voiding Method Urinal Urinal # Voids 1 - Labs CBC & Chem 7: 05/05/23 03:31 12 03:31 Labs: Abnormal Lab Results - Last 24 Hours (Table) 05/04/23 05/05/23 05/05/23 Range/Units 03:27 03:31 03:31 RBC 4.07 L (4.30-5.90) m/uL Hct 38.8 L (39.0-53.0) % Plt Count 147 L (150-450) k/uL Lymphocytes # 0.8 L (1.0-4.8) k/uL Sodium 136 L (137-145) mmol/L Calcium 8.1 L (8.4-10.2) mg/dL Triglycerides 169.00 H (0.00-149.00) mg/dL HDL Cholesterol 30.50 L (40.00-60.00) mg/dL
--- NOTE | 2023-05-05 08:03 | P.PN ---
Subjective Progress Note Date: 05/05/23 This is a 53-year-old male patient with a known history of hyperlipidemia, anxiety/depression obstructive sleep apnea on CPAP at 10 cm of water. He presented to the emergency room last evening after developing aphasia and left- sided weakness. Code stroke was activated and he was seen by neurology who d eemed him qualified for alteplase administration. Computed tomography scan of the brain revealed no acute intracranial abnormality. CT angiogram revealed no significant carotid stenosis. No intracranial major vascular occlusion or significant stenosis, no sizable aneurysm. Chest x-ray reveals some basilar atelectasis with a shallow inspiration. White count 5.7. Hemoglobin 13.9. Platelets 180. Sodium 140. Potassium 4.3. Bicarb 23. BUN 12. Creatinine 0.96. Glucose 100. He is seen today in consultation in the intensive care unit. He is awake and alert. He still has a left-sided facial droop and left- sided weakness and unable to resist gravity. Current NIH score of 9. He has poli e mild to moderate slurring of words. He is maintaining good O2 saturations in the 90s on room air. He's afebrile. Hemodynamically stable. On 05/04/2023, the patient is still in the intensive care unit being followed followed up following is an acute CVA. The patient has weakness bilaterally. Initial presentation work for left-sided weakness, dysarthria and left facial droop. The patient received thrombolytics on 05/02/2023. The repeat CAT scan of the brain was done on 05/03/2023 at 1433 and it showed no acute intracranial process. The patient currently still having weakness bilaterally. Motor function is quite limited and the strength is approximately 3 out of 5 both upper and lower extremities. He is able to speak full sentences. Is not having any aphasia. He is slightly delayed. Sodiums of 140, potassium is at 4, BUN is at 60 with a creatinine of 0.9. The previous count of 5.9, he was 14.4. The patient is having an echocardiogram today. His cardiac rhythm is sinus. Neurology is on the case. Hemodynamically, he is stable, no hypotension, no hypertension. No fever. Encounter some headaches yesterday currently is free of any headache. He is on a CPAP regarding his obstructive sleep apnea which is at a pressure of 10 cm of water. On 05/05/2023, the patient is feeling better. The strength is also improving all 4 extremities. Speech is almost back to normal. No facial asymmetry. No headaches. MRI of the brain was done yesterday and showed negative ab normalities. CAT scan of the brain was also noted. No evidence of any bleed. Echocardiogram was also within normal limits. The patient is going to undergo a ISMAEL today. Aspirin was started at a dose of 81 mg by mouth daily. The patient was also started on high-dose statins 80 mg of Lipitor daily along with ataxia. His LDL cholesterol is at 107. He is also on Plavix. White cell count is at 4.2. Hemoglobin is at 13. Platelet count is at 147, BUN is at 12 and a creatinine of 1.0. Utilizing CPAP overnight. No other significant events. No seizure activity. No altered mentation. He is communicating. He is swallowing food appropriately. Objective - Vital Signs Vital signs: Vital Signs Temp 100.4 F H 05/05/23 04:00 Pulse 61 05/05/23 04:00 Resp 18 05/05/23 04:00 BP 140/88 05/05/23 04:00 Pulse Ox 97 05/05/23 04:00 FiO2 21 05/05/23 01:06 Intake & Output 05/04/23 05/05/23 05/05/23 18:59 06:59 18:59 Intake Total 1600 700 Output Total 1000 1425 Balance 600 -725 Weight 98.6 kg Intake: IV 700 Sodium Chloride 0.9% 1, 700 000 ml @ 100 mls/hr IV . Q10H ISRA Rx#:[id number] Intake, IV Titration 500 Amount Sodium Chloride 0.9% 1, 500 000 ml @ 100 mls/hr IV . Q10H ISRA Rx#:[id number] Oral 1100 Output: Urine 1000 1425 Other: Voiding Method Urinal Urinal # Voids 1 - Exam GENERAL EXAM: Alert, 53-year-old male, on room air, comfortable in no apparent distress. The patient is still on a CPAP at a pressure of 10 cm of water which she uses overnight. HEAD: Normocephalic. Left sided facial droop EYES: Normal reaction of pupils, equal size. NOSE: Clear with pink turbinates. THROAT: No erythema or exudates. NECK: No masses, no JVD. CHEST: No chest wall deformity. LUNGS: Equal air entry with no crackles, wheeze, rhonchi or dullness. CVS: S1 and S2 normal with no audible murmur, regular rhythm. ABDOMEN: No hepatosplenomegaly, normal bowel sounds, no guarding or rigidity. SPINE: No scoliosis or deformity SKIN: No rashes CENTRAL NERVOUS SYSTEM: The upper and lower extremity weakness, unable to resist gravity, tone is normal in all 4 extremities. Motor function is around 3 out of 5 in all 4 extremities. Speech is delayed. Speech is adequate at its delayed. EXTREMITIES: There is no peripheral edema. No clubbing, no cyanosis. Peripheral pulses are intact. - Labs CBC & Chem 7: 05/05/23 03:31 12 03:31 Labs: Abnormal Lab Results - Last 24 Hours (Table) 05/04/23 05/05/23 05/05/23 Range/Units 03:27 03:31 03:31 RBC 4.07 L (4.30-5.90) m/uL Hct 38.8 L (39.0-53.0) % Plt Count 147 L (150-450) k/uL Lymphocytes # 0.8 L (1.0-4.8) k/uL Sodium 136 L (137-145) mmol/L Calcium 8.1 L (8.4-10.2) mg/dL Triglycerides 169.00 H (0.00-149.00) mg/dL HDL Cholesterol 30.50 L (40.00-60.00) mg/dL Assessment and Plan Plan: Acute cerebrovascular accident resulting in left-sided weakness, initial aphasia and left-sided facial droop. Received alteplase at 22:10 on 05/02/2023, still having motor weakness bilaterally. Neurology is on the case. Echocardiogram is negative for any acute abnormalities. MRI of the brain was also negative for acute CVA.. Hemodynamically stable. Cardiac rhythm is sinus. The patient limited on aspirin on outpatient basis. He is back on aspirin 81 mg and Plavix 75 mg by mouth daily. History of TIA 7 months ago Hyperlipidemia Anxiety/depression Obstructive sleep apnea, on CPAP, currently on a CPAP pressure of 10 cm of water Plan: The patient is going to undergo a ISMAEL today May need a extended Holter monitor to rule out paroxysmal A. fib and this will be discussed with cardiology We will remove the CPAP once the patient is fully awake Provide incentive spirometer Lipid profile was checked and LDL level is at 107 and the patient is on Lipitor is at. Continue neurologic evaluations MRI of the brain today Neurology on the case Swallow adequate We will continue to follow and make further recommendations based on his clinical status
[2023-05-05] MEDS ORDERED: SODIUM CHLORIDE 0.9% 500 ML 500 ML IV ONE (09:29)
[2023-05-05] MEDS ORDERED: fentaNYL (PF) 50 MCG/ML 2 ML AMP ONE (09:35)
[2023-05-05] MEDS ORDERED: MIDAZOLAM 2 MG/2 ML VIAL IVP ONE ×2 (09:51→09:56)
[2023-05-05] MEDS ORDERED: BENZOCAINE SPRAY 1 CAN TOPICAL ONE (09:51)
[2023-05-05] MEDS ORDERED: fentaNYL (PF) 50 MCG/ML 2 ML AMP IVP ONE (09:54)
--- NOTE | 2023-05-05 10:12 | P.PCN ---
Date of Procedure: 05/05/23 Description of Procedure: Indication: Cardiac source for CVA Procedure Description: After explaining the procedure to the patient, it's risk and complications, blood pressure, heart rate and O2 saturation were monitored. The throat was sprayed with Cetacaine. Patient received 3 mg intravenous Versed, 50 mcg intravenous fentanyl. The probe was introduced into the esophagus without difficulty. Images were obtained. Following that, the probe was removed. There was no immediate complication. Findings: Left atrial size is normal, left atrial appendage is normal. Left ventricular size and systolic function are normal. The aortic valve, mitral valve and tricuspid valve are normal. Chiari network was noted in the right ventricle. The intra-atrial septum is aneurysmal with no evidence of shunting with contrast bubble study and Valsalva maneuver. No pericardial effusion was noted. Descending thoracic aorta appears to be normal. Doppler: Pulse wave and color Doppler were obtained, and revealed mild mitral and tricuspid regurgitation. There was no shunting across the intra-atrial septum. Conclusion: 1. Normal left ventricle size and systolic function 2. Normal appearance of the left atrial appendage 3. Aneurysmal intra-atrial septum with no evidence of shunting 4. Mild mitral and tricuspid regurgitation 5. Normal appearance of the descending thoracic aorta
[2023-05-05] MEDS: SODIUM CHLORIDE 0.9% 1,000 ML IV SCH ×2 (12:19→21:07)
[2023-05-05] MEDS: LOSARTAN 50 MG TAB PO SCH (12:23)
[2023-05-05] MEDS: ASPIRIN 81 MG PO SCH (12:23)
[2023-05-05] MEDS: MULTIVITAMINS, THERA 1 EACH TAB PO SCH (12:23)
[2023-05-05] MEDS: ATORVASTATIN 80 MG TAB PO SCH (12:23)
[2023-05-05] MEDS: EZETIMIBE 10 MG TAB PO SCH (12:23)
[2023-05-05] MEDS: CLOPIDOGREL 75 MG TAB PO SCH (12:23)
[2023-05-05] MEDS: HEPARIN SODIUM,PORCINE 5,000 UNIT/ML 1 ML VIAL SQ SCH ×2 (12:23→21:06)
[2023-05-05] MEDS: Icosapent Ethyl [Icosapent Ethyl] 1 GM Capsule PO SCH ×2 (12:24→21:06)
--- NOTE | 2023-05-05 12:44 | P.PN ---
Subjective Progress Note Date: 05/05/23 I am following-up with patient and he feels he is doing better. He denies of any neck pain. He has chronic back pain that has not worsened. Objective - Vital Signs Vital signs: Vital Signs Temp 98.6 F 05/05/23 08:00 Pulse 76 05/05/23 12:30 Resp 13 05/05/23 12:30 BP 154/110 05/05/23 12:30 Pulse Ox 96 05/05/23 12:30 FiO2 21 05/05/23 01:06 Intake & Output 05/04/23 05/05/23 05/05/23 18:59 06:59 18:59 Intake Total 1600 700 100 Output Total 1000 1425 Balance 600 -725 100 Weight 98.6 kg Intake: IV 700 100 Sodium Chloride 0.9% 1, 700 000 ml @ 100 mls/hr IV . Q10H ISRA Rx#:[id number] Intake, IV Titration 500 Amount Sodium Chloride 0.9% 1, 500 000 ml @ 100 mls/hr IV . Q10H ISRA Rx#:[id number] Oral 1100 Output: Urine 1000 1425 Other: Voiding Method Urinal Urinal Urinal # Voids 1 - Exam GENERAL: The patient is lying in bed and is not in acute distress. NEUROLOGICAL: Higher mental function: The patient is awake, alert, oriented to self, place and time. Patient is following commands. Has expressive aphasia and mildly slow. Cranial nerves: The pupils are round, equal and reactive to light. Visual de la garza are full to confrontation throughout. Extraocular movement is intact no nystagmus is noted. Facial sensation is normal to touch throughout. The facial strength is normal throughout. Tongue is midline and moved [id number] without any difficulty. No dysarthria is noted. Shoulder shrug is normal bilaterally. Motor: The strength is left upper is 4+ while the right upper is 5/5. Left ankle dorsiflexion is 3-4. Otherwise bilateral lowers are 4+.. Normal tone and bulk. Cerebellum: Somewhat slow doing finger to nose on the left but no dysmetria or ataxia. Normal on the right. . Sensation: Sensation is normal to touch throughout. SOME OF THE WORK-UP DURING THIS HOSPITAL VISIT CONSISTED OF: Lipid panel is triglyceride 169, cholesterol is 172, LDLs 107 and HDL is 30. Repeat CT of the head post IV tPA is reported as no acute intracranial process. I personally reviewed the CT of the head and I agree with the report. CT angiography of the head and neck was reported as no dissection hemodynamically significant stenosis or pseudoaneurysm detected in the carotid or vertebral artery in the neck. For the head it's reported as no intracranial major vascular occlusion or significant stenosis or sizable aneurysm detected in the limits of CT angiography. 2-D echo was reported as technically difficult study with poor acoustical 1 dose. Normal left ventricle systolic function. MR the brain is reported as no acute intracranial process. - Labs CBC & Chem 7: 05/05/23 03:31 12 03:31 Labs: Abnormal Lab Results - Last 24 Hours (Table) 05/05/23 05/05/23 Range/Units 03:31 03:31 RBC 4.07 L (4.30-5.90) m/uL Hct 38.8 L (39.0-53.0) % Plt Count 147 L (150-450) k/uL Lymphocytes # 0.8 L (1.0-4.8) k/uL Sodium 136 L (137-145) mmol/L Calcium 8.1 L (8.4-10.2) mg/dL Assessment and Plan Assessment: This is a 53-year-old gentleman who presented emergency department because of the expressive aphasia and left-sided hemiparesis him a left facial droop and dysarthria. Patient received IV TPA. Acute ischemic stroke a post-IV TPA. Patient's symptoms are expressive aphasia and left hemiparesis, facial droop and dysarthria. MRI Brain is negative for acute ischemia. I am unsure if the slices were thick and missed the stroke. History of TIA Plan: The patient started on aspirin 81 mg daily. In addition I start the patient on Plavix 75 mg daily. Patient is not compliant taking aspirin at home. Patient is on Lipitor 80 mg daily. I ordered MRI C-spine to rule out any cervical lesion causing some of his symptoms but that would not explain speech/language. Will repeat MRI Brain but this time will get thin slices. Pending transesophageal echocardiogram Recommend a 30 day event monitor and if negative loop record, especially with chest pain that he has been having intermittently. Continue neuro checks Cardiac monitoring PT OT and NEUROPSYCHIATRIST are consulted Will defer the rest of medical management to the primary team. For DVT prophylaxis: On subq heparin 5000IU every 12 hours. The plan is discussed with patient and his nurse. Will continue to follow. Time with Patient: Less than 30
--- NOTE | 2023-05-05 16:02 | MR ---
EXAMINATION TYPE: MR brain wo/w con DATE OF EXAM: 05/05/2023 2:24 PM CLINICAL INDICATION:Male, 53 years old with history of left sided weakness with speech difficulty.; , Lt side weakness, speech difficulty COMPARISON: CT brain 05/03/2023, MRI brain 05/04/2023. TECHNIQUE: Multi planar, multi sequence imaging was performed through the brain including: T1, T2, In version recovery, susceptibility weighted imaging and gradient echo imaging and Diffusion weighted im aging. The patient was then given intravenous contrast and multi planar, T1 fat-saturation images wer e obtained. IV Contrast: 10 cc Gadavist FINDINGS: The garcia-white junctions, ventricular system, basal cisterns appear unremarkable. Diffusion-weighted imaging shows no evidence of restricted diffusion to suggest acute/subacute infarct. Intracranial ar terial flow voids are maintained. Midline structures show no abnormality. Minimal scattered foci of h igh T2 signal intensity are seen within the periventricular white matter. The susceptibility weighted images do not reveal any evidence for micro-hemorrhage. After administration of gadolinium, no abnor mal enhancement is seen. The bone marrow signal is within normal limits. Paranasal sinuses and mastoid air cells: No significant paranasal sinus disease. Visualized orbits: Orbital contents are intact. IMPRESSION: 1. No evidence of intracranial mass, acute/subacute infarct, or abnormal enhancement. 2. Minimal Nonspecific white matter changes, likely related to small vessel ischemic disease.
[2023-05-05] MEDS: ESCITALOPRAM 5 MG TAB PO SCH (21:06)
[2023-05-06 04:53] LABS: African American GFR (CKD) 89 (>60 ml/min/1.73 sqM); Anion Gap 10 mmol/L; Blood Urea Nitrogen 13 mg/dL (9-20); Calcium 8.5 mg/dL (8.4-10.2); Carbon Dioxide 23 mmol/L (22-30); Chloride 104 mmol/L (98-107); Glucose 98 mg/dL (74-99); Non-African American GFR(CKD) 77 (>60 ml/min/1.73 sqM); Potassium 3.8 mmol/L (3.5-5.1); Sodium 137 mmol/L (137-145)
[2023-05-06 04:54] LABS: Basophils % (A) 1 %; Eosinophils # (A) 0.2 k/uL (0-0.7); Eosinophils % (A) 5 %; HCT 43.6 % (39.0-53.0); HGB 14.6 gm/dL (13.0-17.5); Lymphocytes # (A) 1.1 k/uL (1.0-4.8); Lymphocytes % (A) 26 %; MCH 31.7 pg (25.0-35.0); MCHC 33.5 g/dL (31.0-37.0); MCV 94.6 fL (80.0-100.0); Mean Platelet Volume 8.2; Monocytes # (A) 0.4 k/uL (0-1.0); Monocytes % (A) 10 %; Neutrophils # (A) 2.3 k/uL (1.3-7.7); Neutrophils % (A) 55 %; Platelet Count 133 k/uL (150-450); RBC 4.61 m/uL (4.30-5.90); RDW 12.2 % (11.5-15.5); WBC 4.2 k/uL (3.8-10.6)
[2023-05-06] MEDS ORDERED: Potassium Replacement Protocol 1 EACH MISC MISCELLANE PRN (05:31)
[2023-05-06] MEDS ORDERED: POTASSIUM CHLORIDE ER 20 MEQ TAB.ER PO SCH (06:00)
[2023-05-06] MEDS: Icosapent Ethyl [Icosapent Ethyl] 1 GM Capsule PO SCH ×2 (06:46→17:25)
--- NOTE | 2023-05-06 07:13 | P.PN ---
Subjective Progress Note Date: 05/06/23 PROGRESS NOTE The patient is a 53-year-old male with a known history of hyperlipidemia, chronic obstructive lung disease, prior history of smoking who presented with speech disturbance and left sided weakness. He was found to have evidence of acute CVA and received TPA with improvement of his symptoms. Cardiology consultation was requested for ISMAEL. The patient is active physically, denies any exertional chest discomfort although he has occasional chest pain not activity related. He has mild dyspnea on exertion, he has no PND, orthopnea or peripheral edema. He has occasional palpitations but no documented history of atrial fibrillation. His echocardiogram was technically difficult but showed no significant abnormalities. He has been in sinus mechanism since his admission. He has no prior cardiac history and no recent cardiac workup. He has been hemodynamically stable since his admission. May 05: The patient is feeling well this morning, he denies any chest discomfort, dizziness or palpitations. He continues to be in sinus mechanism. Hemodynamically he stable. He is scheduled to undergo a ISMAEL today to rule out intracardiac source for his neurological event. Brain MRI showed no acute intracranial abnormality May 06: The patient is feeling well this morning, he continues to be in sinus mechanism and hemodynamically stable. He denies any chest discomfort, dizziness or palpitations. He feels that his left arm weakness is better. His ISMAEL showed no evidence of thrombus or shunting. His left ventricle systolic function was normal. Medications: Aspirin, Lipitor 80 mg daily, Plavix 75 g daily, losartan 50 mg daily, Ezetimibe 10 milligrams daily PHYSICAL EXAMINATION: Blood pressure 130/89 heart rate 67, temperature 97.1 LUNGS: Clear to auscultation HEART: Regular rate and rhythm, S1, S2. No S3. No systolic murmur ABDOMEN: Soft, nontender, no organomegaly EXTREMETIES: No edema LAB: WBC 4.2, hemoglobin 14.6, BUN 13, creatinine 1.1 IMPRESSION: 1. Status post CVA, etiology unclear, no evidence of intracardiac thrombus or shunting 2. Febrile episode workup in progress 3. History of hypertension 4. History of hyperlipidemia PLAN: 1. Continue present therapy 2. Follow-up as an outpatient from the cardiac standpoint to see if further cardiac workup is needed 3. We will see him on as-needed basis, please feel free to call us for any questions Objective - Vital Signs Vital signs: Vital Signs Temp 97.1 F L 12/06/23 04:00 Pulse 67 05/06/23 04:00 Resp 15 05/06/23 04:00 BP 130/89 05/06/23 04:00 Pulse Ox 96 05/06/23 04:00 FiO2 21 05/06/23 03:16 Intake & Output 05/05/23 05/06/23 05/06/23 18:59 06:59 18:59 Intake Total 890 720 Output Total 1000 1600 Balance -110 -880 Weight 96.4 kg Intake: IV 400 220 Sodium Chloride 0.9% 1, 300 000 ml @ 100 mls/hr IV . Q10H ISRA Rx#:[id number] Sodium Chloride 0.9% 1, 220 000 ml @ 20 mls/hr IV . Q24H ISRA Rx#:[id number] Oral 490 500 Output: Urine 1000 1600 Other: Voiding Method Urinal Urinal - Labs CBC & Chem 7: 05/06/23 04:08 05/06/23 04:08 Labs: Abnormal Lab Results - Last 24 Hours (Table) 05/06/23 Range/Units 04:08 Plt Count 133 L (150-450) k/uL
[2023-05-06] MEDS: HEPARIN SODIUM,PORCINE 5,000 UNIT/ML 1 ML VIAL SQ SCH ×2 (08:59→20:33)
[2023-05-06] MEDS: MULTIVITAMINS, THERA 1 EACH TAB PO SCH (08:59)
[2023-05-06] MEDS: CLOPIDOGREL 75 MG TAB PO SCH (08:59)
[2023-05-06] MEDS: LOSARTAN 50 MG TAB PO SCH (08:59)
[2023-05-06] MEDS: EZETIMIBE 10 MG TAB PO SCH (08:59)
[2023-05-06] MEDS: ATORVASTATIN 80 MG TAB PO SCH (08:59)
[2023-05-06] MEDS: ASPIRIN 81 MG PO SCH (08:59)
--- NOTE | 2023-05-06 09:31 | P.PN ---
Subjective Progress Note Date: 05/06/23 This is a 53-year-old male patient with a known history of hyperlipidemia, anxiety/depression obstructive sleep apnea on CPAP at 10 cm of water. He presented to the emergency room last evening after developing aphasia and left- sided weakness. Code stroke was activated and he was seen by neurology who d eemed him qualified for alteplase administration. Computed tomography scan of the brain revealed no acute intracranial abnormality. CT angiogram revealed no significant carotid stenosis. No intracranial major vascular occlusion or significant stenosis, no sizable aneurysm. Chest x-ray reveals some basilar atelectasis with a shallow inspiration. White count 5.7. Hemoglobin 13.9. Platelets 180. Sodium 140. Potassium 4.3. Bicarb 23. BUN 12. Creatinine 0.96. Glucose 100. He is seen today in consultation in the intensive care unit. He is awake and alert. He still has a left-sided facial droop and left- sided weakness and unable to resist gravity. Current NIH score of 9. He has poli e mild to moderate slurring of words. He is maintaining good O2 saturations in the 90s on room air. He's afebrile. Hemodynamically stable. On 05/04/2023, the patient is still in the intensive care unit being followed followed up following is an acute CVA. The patient has weakness bilaterally. Initial presentation work for left-sided weakness, dysarthria and left facial droop. The patient received thrombolytics on 05/02/2023. The repeat CAT scan of the brain was done on 05/03/2023 at 1433 and it showed no acute intracranial process. The patient currently still having weakness bilaterally. Motor function is quite limited and the strength is approximately 3 out of 5 both upper and lower extremities. He is able to speak full sentences. Is not having any aphasia. He is slightly delayed. Sodiums of 140, potassium is at 4, BUN is at 60 with a creatinine of 0.9. The previous count of 5.9, he was 14.4. The patient is having an echocardiogram today. His cardiac rhythm is sinus. Neurology is on the case. Hemodynamically, he is stable, no hypotension, no hypertension. No fever. Encounter some headaches yesterday currently is free of any headache. He is on a CPAP regarding his obstructive sleep apnea which is at a pressure of 10 cm of water. On 05/05/2023, the patient is feeling better. The strength is also improving all 4 extremities. Speech is almost back to normal. No facial asymmetry. No headaches. MRI of the brain was done yesterday and showed negative ab normalities. CAT scan of the brain was also noted. No evidence of any bleed. Echocardiogram was also within normal limits. The patient is going to undergo a ISMAEL today. Aspirin was started at a dose of 81 mg by mouth daily. The patient was also started on high-dose statins 80 mg of Lipitor daily along with ataxia. His LDL cholesterol is at 107. He is also on Plavix. White cell count is at 4.2. Hemoglobin is at 13. Platelet count is at 147, BUN is at 12 and a creatinine of 1.0. Utilizing CPAP overnight. No other significant events. No seizure activity. No altered mentation. He is communicating. He is swallowing food appropriately. On 05/06/2023, the patient continues to have some weakness on the left especially the left upper extremity. Each is normal. Swallowing is normal. Is ambulating. ISMAEL was done yesterday and it showed no acute abnormalities and the patient remains on a combination of aspirin and Plavix. Hemodynamically stable. No hypertension. No hypotension. Cardiac rhythm is sinus. Utilizing CPAP overnight. No seizure activity. No altered mentation. Labs from today shows a white cell count of 4.2, hemoglobin is 14, renal function is stable, elec trolytes are all stable. Objective - Vital Signs Vital signs: Vital Signs Temp 98.3 F 05/06/23 08:00 Pulse 64 05/06/23 08:00 Resp 12 05/06/23 08:00 BP 134/90 05/06/23 08:00 Pulse Ox 95 05/06/23 08:00 FiO2 21 05/06/23 03:16 Intake & Output 05/05/23 05/06/23 05/06/23 18:59 06:59 18:59 Intake Total 890 720 Output Total 1000 1600 Balance -110 -880 Weight 96.4 kg Intake: IV 400 220 Sodium Chloride 0.9% 1, 300 000 ml @ 100 mls/hr IV . Q10H ISRA Rx#:[id number] Sodium Chloride 0.9% 1, 220 000 ml @ 20 mls/hr IV . Q24H ISRA Rx#:[id number] Oral 490 500 Output: Urine 1000 1600 Other: Voiding Method Urinal Urinal - Exam GENERAL EXAM: Alert, 53-year-old male, on room air, comfortable in no apparent distress. The patient is still on a CPAP at a pressure of 10 cm of water which she uses overnight. HEAD: Normocephalic. Left sided facial droop EYES: Normal reaction of pupils, equal size. NOSE: Clear with pink turbinates. THROAT: No erythema or exudates. NECK: No masses, no JVD. CHEST: No chest wall deformity. LUNGS: Equal air entry with no crackles, wheeze, rhonchi or dullness. CVS: S1 and S2 normal with no audible murmur, regular rhythm. ABDOMEN: No hepatosplenomegaly, normal bowel sounds, no guarding or rigidity. SPINE: No scoliosis or deformity SKIN: No rashes CENTRAL NERVOUS SYSTEM: The upper and lower extremity weakness, unable to resist gravity, tone is normal in all 4 extremities. Motor function is around 3 out of 5 in all 4 extremities. Speech is delayed. Speech is adequate at its delayed. EXTREMITIES: There is no peripheral edema. No clubbing, no cyanosis. Peripheral pulses are intact. - Labs CBC & Chem 7: 05/06/23 04:08 05/06/23 04:08 Labs: Abnormal Lab Results - Last 24 Hours (Table) 05/06/23 Range/Units 04:08 Plt Count 133 L (150-450) k/uL Assessment and Plan Plan: Acute cerebrovascular accident resulting in left-sided weakness, initial aphasia and left-sided facial droop. Received alteplase at 22:10 on 05/02/2023, still having motor weakness bilaterally. Neurology is on the case. Echocardiogram is negative for any acute abnormalities. MRI of the brain was also negative for acute CVA.. Hemodynamically stable. Cardiac rhythm is sinus. The patient limited on aspirin on outpatient basis. He is back on aspirin 81 mg and Plavix 75 mg by mouth daily. Clinically stable, residual weakness on the left. ISMAEL is within normal limits. History of TIA 7 months ago Hyperlipidemia Anxiety/depression Obstructive sleep apnea, on CPAP, currently on a CPAP pressure of 10 cm of water Plan: He was noted Doing some progress although there is some residual weakness on the left May need a extended Holter monitor to rule out paroxysmal A. fib and this will be discussed with cardiology We will remove the CPAP once the patient is fully awake Provide incentive spirometer Lipid profile was checked and LDL level is at 107 and the patient is on Lipitor is at. Continue neurologic evaluations MRI of the brain noted and there is no evidence of any acute CVA Neurology on the case Swallow adequate We will continue to follow and make further recommendations based on his clinical status Transfer outside intensive care unit today.
[2023-05-06] MEDS: SODIUM CHLORIDE 0.9% 1,000 ML IV SCH ×2 (11:29→20:34)
--- NOTE | 2023-05-06 11:54 | MR ---
EXAMINATION TYPE: MR cervical spine wo con DATE OF EXAM: 05/04/2023 10:12 PM CLINICAL INDICATION:Male, 53 years old with history of left sided weakness, Left sided weakness, COMPARISON: 05/20/2023 CT. TECHNIQUE: Multi planar, multi sequence imaging was performed utilizing: T1-weighted, T2-weighted, an d turbo inversion recovery imaging of the cervical spine. IV Contrast: cc (none if empty) FINDINGS: Alignment: The cervical vertebral bodies have preserved heights. Alignment is within normal limits gi jaymie patient positioning. Bones: Scattered osteophytes and disc space narrowing. Multilevel degenerative disc disease is noted and most pronounced at the C5-C7 vertebral levels. Cord: The spinal cord is unremarkable with regards to their signal intensity and morphology. Discs: Intervertebral disc signal is maintained. C2-C3: No significant disc pathology. The spinal canal is patent. No neural foraminal stenosis. C3-C4: No significant disc pathology. The spinal canal is patent. No neural foraminal stenosis. C4-C5: No significant disc pathology. The spinal canal is patent. Bilateral facet and uncovertebral joint arthropathy are present with moderate to severe bilateral neural foraminal stenosis. C5-C6: No significant disc pathology. The spinal canal is patent. Bilateral facet and uncovertebral joint arthropathy are present with moderate to severe right and moderate left neural foraminal stenos is. C6-C7: No significant disc pathology. The spinal canal is patent. Bilateral facet and uncovertebral joint arthropathy are present with moderate to severe bilateral neural foraminal stenosis. C7-T1: No significant disc pathology. The spinal canal is patent. No neural foraminal stenosis. Other: None. IMPRESSION: 1. No evidence for disc herniation or significant spinal canal stenosis. 2. Multilevel disc degeneration with associated osteoarthritic changes with neural foraminal stenosis worse at C4-C7 with moderate to severe bilateral
[2023-05-06] MEDS ORDERED: CALAMINE/ZINC OXIDE LOTION 177 ML BTL TOPICAL PRN (11:57)
--- NOTE | 2023-05-06 14:04 | P.PN ---
Subjective Progress Note Date: 05/06/23 I am putting up with the patient and he is accompanied with his girlfriend. Patient feels he is doing drastically better and his girlfriend agrees. Again she stated that the prior to presenting the hospital he had slurring the speech and the confusion and then when he presented to our facility is seems that when he was being examined he had left-sided weakness. Objective - Vital Signs Vital signs: Vital Signs Temp 98.0 F 05/06/23 12:00 Pulse 71 05/06/23 12:00 Resp 16 05/06/23 12:00 BP 139/96 05/06/23 12:00 Pulse Ox 94 L 05/06/23 12:00 FiO2 21 05/06/23 03:16 Intake & Output 05/05/23 05/06/23 05/06/23 18:59 06:59 18:59 Intake Total 890 720 140 Output Total 1000 1600 Balance -110 -880 140 Weight 96.4 kg Intake: IV 400 220 140 Sodium Chloride 0.9% 1, 300 000 ml @ 100 mls/hr IV . Q10H ISRA Rx#:[id number] Sodium Chloride 0.9% 1, 220 140 000 ml @ 20 mls/hr IV . Q24H ISRA Rx#:[id number] Oral 490 500 Output: Urine 1000 1600 Other: Voiding Method Urinal Urinal Urinal # Voids 1 - Exam GENERAL: The patient is lying in bed and is not in acute distress. NEUROLOGICAL: Higher mental function: The patient is awake, alert, oriented to self, place and time. Patient is following commands. No aphasia. No neglect. Cranial nerves: The pupils are round, equal and reactive to light. Visual de la garza are full to confrontation throughout. Extraocular movement is intact no nystagmus is noted. Facial sensation is normal to touch throughout. The facial strength is normal throughout. Tongue is midline and moved [id number] without any difficulty. No dysarthria is noted. Shoulder shrug is normal bilaterally. Motor: The strength is left upper is 4+ to 5- while the right upper is 5/5. Left lower is 4. Right side is 5/5. Normal tone and bulk. Cerebellum: Normal finger to nose. Sensation: Sensation is normal to touch throughout. Reflexes is her left patellar is about 3 para otherwise 2+ throughout. SOME OF THE WORK-UP DURING THIS HOSPITAL VISIT CONSISTED OF: Lipid panel is triglyceride 169, cholesterol is 172, LDLs 107 and HDL is 30. Repeat CT of the head post IV tPA is reported as no acute intracranial process. I personally reviewed the CT of the head and I agree with the report. CT angiography of the head and neck was reported as no dissection hemo dynamically significant stenosis or pseudoaneurysm detected in the carotid or vertebral artery in the neck. For the head it's reported as no intracranial major vascular occlusion or significant stenosis or sizable aneurysm detected in the limits of CT angiography. 2-D echo was reported as technically difficult study with poor acoustical 1 dose. Normal left ventricle systolic function. MR the brain is reported as no acute intracranial process. Repeat MRI of the brain requesting thin slices: Is reported as no evidence of intracranial mass, acute/subacute infarct or abnormal enhancement. Minimal nonspecific white matter changes, likely related to small vessel ischemic disease MRI of the cervical spine was reported as multiple level disc degeneration with associated osteophytic changes with neural foraminalis worse at C4 C7 with moderate to severe bilaterally no evidence of disc herniation or significant spinal canal stenosis. ISMAEL: 1. Normal left ventricle size and systolic function 2. Normal appearance of the left atrial appendage 3. Aneurysmal intra-atrial septum with no evidence of shunting 4. Mild mitral and tricuspid regurgitation 5. Normal appearance of the descending thoracic aorta - Labs CBC & Chem 7: 05/06/23 04:08 05/06/23 04:08 Labs: Abnormal Lab Results - Last 24 Hours (Table) 05/06/23 Range/Units 04:08 Plt Count 133 L (150-450) k/uL Assessment and Plan Assessment: This is a 53-year-old gentleman who presented emergency department because of the expressive aphasia and left-sided hemiparesis him a left facial droop and dysarthria. Patient received IV TPA. Acute ischemic stroke a post-IV TPA. Patient's symptoms are expressive aphasia, dysarthria and left hemiparesis, facial droop and dysarthria. MRI Brain is ne gative and repeat MRI requesting thin slices is negative. Neural foraminal stenosis over C4 C7 with moderate to severe bilateral on MRI but that would not explain his speech difficulty. History of TIA Chronic lower back pain. Plan: The patient started on aspirin 81 mg daily. In addition I start the patient on Plavix 75 mg daily. Patient is not compliant taking aspirin at home. Patient is on Lipitor 80 mg daily. Her eye consulted for orthopedic surgery team for his cervical stenosis. I recommended an MRI thoracic and lumbar since the patient has weakness on the left side and I felt slightly brisk on the left patellar but patient stated that he had numerous imaging of his lower back so the patient was recommended to follow-up with orthopedic is an outpatient as well and recommended outpatient MRI thoracic and the lumbar as an outpatient since it seems he has not had that imaging the couple years. Patient's agreement of getting those images outpatient. We'll defer the order to the primary and orthopedic surgery team Recommend a 30 day event monitor and if negative loop record, especially with chest pain that he has been having intermittently. Continue neuro checks Cardiac monitoring PT OT and BUSINESS OBJECTS ARCHITECT are consulted Will defer the rest of medical management to the primary team. For DVT prophylaxis: On subq heparin 5000IU every 12 hours. The plan is discussed with patient, his girlfriend is at bedside. There is no further neurological workup. We'll sign off. Please reconsult as needed.
--- NOTE | 2023-05-06 14:21 | P.CONS ---
History of Present Illness - Reason for Consult Consult date: 05/06/23 CVA, rehab recommendations - Chief Complaint left hemiparesis, concern for CVA - History of Present Illness Mr. Stapleton is a 53 year old male, right handed, single, who lives with his significant other and children ( 3) in a two story home, with 4 EMIL[address]. Patient resides on the first [place]. Prior to admission, he was ambulating without an assistive device. He was independent for basic/advanced ADLs. 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 Support system: significant other, family. He was admitted to [facility] 05/02. He presented to the ED via EMS for acute strokelike symptoms. The patient was out to dinner with his girlfriend when suddenly she started noticing the patient's symptoms, including slurred speech. Patient reported he was experiencing chest pain and weakness in his extremities. Patient arrived to the ER and tPA was administered. Chest x- ray nonacute, CT of the brain showed no intracranial bleeds. CTA showed no large vessel occlusion or significant stenosis. Lab values unremarkable. No significant improvement after tPA administration. Patient was admitted to the ICU with neurology consultation. Repeat CT showed no acute intracranial pro cess. MRI of the brain negative. Echocardiogram normal LV systolic function, ISMAEL completed the morning of 05/05 revealed nothing significant. Therapy evaluations 05/04 patient needing max assist with bathing, mod assist UB dressing, total assist LB dressing, mod assist grooming, supervision eating, total assist toileting, max assist bed mobility, max assist transfers MRI brain ordered, no evidence of intracranial mass, no acute/ subacute infarct or enhancement. Per neurology, on ASA, plavix, statin, event monitor recommended. Neurology consulted Ortho regarding cervical stenosis. 05/06/23: Patient states overall he is feeling better, but still weak on his left side. He was able to ambulate the unit. He denies SOB, and abdominal pain. He admits that he has intermittent chest pain which he was having outpatient, follows with Dr Overton. He has no current complaints of pain. He has occasional headaches. LBM yesterday, no issues with urination. Patient's gf reports patient's memory seems slow still, but otherwise he is overall much improved. Therapy on 05/06/23: patient is modified independent with bed mobility, transfers, gait 250 ft, mod I with ADLs. Review of Systems reviewed, negative unless stated above in HPI Past Medical History Past Medical History: Coronary Artery Disease (CAD), COPD, CVA/TIA Additional Past Medical History / Comment(s): TIA 2017 History of Any Multi-Drug Resistant Organisms: None Reported Past Surgical History: Unable to Obtain Past Anesthesia/Blood Transfusion Reactions: No Reported Reaction Past Psychological History: Unable to Obtain Smoking Status: Former smoker, Unknown if ever smoked Past Alcohol Use History: Occasional Past Drug Use History: None Reported Medications and Allergies Home Medications Medication Instructions Recorded Confirmed Type Aspirin EC [Ecotrin Low Dose] 81 mg PO DAILY 05/02/23 05/02/23 History Escitalopram [Lexapro] 5 mg PO HS 05/02/23 05/02/23 History Ezetimibe [Zetia] 10 mg PO DAILY 05/02/23 05/02/23 History Mv-Min/Folic/K1/Lycopen/Lutein 1 tab PO DAILY 05/02/23 05/02/23 History [Centrum Silver Men Tablet] Rosuvastatin Calcium [Crestor] 40 mg PO DAILY 05/02/23 05/02/23 History icosapent ethyL [Icosapent Ethyl] 2 gm PO BID-W/MEALS 05/02/23 05/02/23 History Allergies Allergy/AdvReac Type Severity Reaction Status Date / Time Penicillins Allergy Unknown Verified 05/02/23 22:24 Physical Exam Vitals: Vital Signs Temp Pulse Pulse Resp BP BP Pulse Ox 05/06/23 12:00 98.0 F 71 16 139/96 94 L 05/06/23 08:00 98.3 F 64 12 134/90 95 05/06/23 04:00 97.1 F L 67 15 130/89 96 05/06/23 03:16 05/06/23 03:00 71 15 05/06/23 02:00 73 18 05/06/23 01:00 101.1 F H 80 15 142/89 94 L 05/06/23 00:00 76 16 05/05/23 23:48 05/05/23 23:00 77 14 05/05/23 22:36 75 13 05/05/23 22:30 73 22 142/87 05/05/23 22:00 74 23 142/87 05/05/23 21:30 79 23 142/87 05/05/23 21:00 80 22 142/87 05/05/23 20:30 79 29 H 142/87 05/05/23 20:00 99.6 F 80 80 23 142/87 95 05/05/23 19:30 79 19 05/05/23 19:00 80 26 H 05/05/23 18:30 77 25 H 05/05/23 18:00 77 25 H 05/05/23 17:30 77 26 H 05/05/23 17:00 80 20 05/05/23 16:00 98.0 F 81 20 148/96 95 05/05/23 15:30 82 12 156/93 95 05/05/23 15:00 83 14 149/98 95 05/05/23 14:45 86 12 149/98 93 L FiO2 05/06/23 12:00 05/06/23 08:00 05/06/23 04:00 05/06/23 03:16 21 05/06/23 03:00 05/06/23 02:00 05/06/23 01:00 05/06/23 00:00 05/05/23 23:48 21 05/05/23 23:00 05/05/23 22:36 05/05/23 22:30 05/05/23 22:00 05/05/23 21:30 05/05/23 21:00 05/05/23 20:30 05/05/23 20:00 05/05/23 19:30 05/05/23 19:00 05/05/23 18:30 05/05/23 18:00 05/05/23 17:30 05/05/23 17:00 05/05/23 16:00 05/05/23 15:30 05/05/23 15:00 05/05/23 14:45 Intake and Output 05/05/23 05/06/23 05/06/23 22:59 06:59 14:59 Intake Total 520 200 140 Output Total 1600 Balance -1080 200 140 Intake: IV 20 200 140 Sodium Chloride 0.9% 1, 20 200 140 000 ml @ 20 mls/hr IV . Q24H COUNTS INCLUDE 234 BEDS AT THE [facility] Rx#:[id number] Oral 500 Output: Urine 1600 Other: Voiding Method Urinal Urinal Urinal # Voids 1 Weight 96.4 kg General: WDWN, male sitting up in chair with s/o at bedside, NAD Head: Normocephalic, atraumatic. Eyes: Symmetric Ears: Symmetric. Hearing within normal limits. Mouth: Clear. Neck: Supple. Cardiac: surveillance system monitor on. Calves supple, non tender, no LE edema Lungs: Breathing comfortably on RA. Chest symmetric. Abdomen: Soft, nontender. Extremities: Arthritic changes consistent with age. Neurological: Alert and oriented x 4. intermittent slow processing Speech is clear and fluent without paraphasic errors Cranial nerves: CN II-XII grossly intact. Slight ataxia with left HTS Sensation: Intact and symmetrical limbs. Musculoskeletal: ROM WFL EXCEPT: left hemiparesis MMT UE Sh Abd EE EF FABD WE HG Right 5 5 5 5 Left 4 4 4 4 MMT LE HF KE DF EHL Right 5 5 5 5 Left 4- 4 4- 4- Skin: Skin intact where visible to head, neck, and bilateral upper and lower extremities Psych: Calm, cooperative Results CBC & Chem 7: 05/06/23 04:08 05/06/23 04:08 Labs: Abnormal Lab Results - Last 24 Hours (Table) 05/06/23 Range/Units 04:08 Plt Count 133 L (150-450) k/uL Assessment and Plan Assessment: #Gait impairment/impaired ADL's 2/2 left hemiparesis with dysarthria, likely secondary to CVA involving right MCA territory s/p tPA -Dual antiplatelet therapy for 21 days -Aspirin, Plavix, Lipitor -MRI brain reviewed, clinically still appears he had a CVA #CAD #History of TIA #Anxiety -Lexapro #Depression -Lexapro # Bowel/ Bladder: Nursing to monitor and report concerns if any. -05/06/23 denies issues # Diet -per EMR # Skin/wound: Skin/Wound care to follow as needed # Pain Management -Tylenol 650 mg every 6 hours as needed # DVT Prophylaxis: -Subcu heparin # Comorbidities: COPD, BPH, hypertension # Your medical dx and mgt Goals: Modified Independent mobility and ADLS both basic and advanced; increased functional mobility/strength; increased balance, safety, endurance. Improvement in medical issues through your care. Barriers: endurance, left sided hemiparesis Discharge recommendation: Patient is modified independent with PT and OT, recommending HHC, discussed with patient and s/o and both agreeable. He is able to have help/supervision while his S/o is at work. Patient seen and examined in coordination with Dr. Mendoza Patient seen and examined in coordination with SHALOM Chiang; agree with above.
--- NOTE | 2023-05-06 14:30 | P.CNOR ---
History of Present Illness - [facility] Consult date: 05/06/23 Requesting physician: Stalin Hamlin Consult reason: other (cervical stenosis with left sided weakness) History of present illness: Patient is a 53-year-old male who presented the emergency department on 05/02/2023 due to some increasing chest pain and slurring of speech. Patient does have previous medical history significant for hyperlipidemia, TIA, enlarged prostate, COPD, shortness sleep apnea. Orthopedics was consulted for stenosis of cervical spine and weakness of the extremities. Patient was seen at bedside this afternoon sitting up in chair. Patient says the day that he is coming the hospital his girlfriend noticed facial drooping as well as slurring of speech so they came in via EMS. Patient says he did begin to have weakness in the left upper and left lower extremity the day that he came in the hospital. Patient states over the past few days the weakness has gotten better in the extremities. Patient notes she is still having some residual weakness in the left leg and left arm, however it is getting better overall. Patient denies any neck pain. Patient denies any pain in upper or lower extremities at this time. Patient denies having any falls. Patient denies any previous orthopedic surgical history. Patient denies any previous spine surgery. Patient denies any loss of bowel/bladder control. Patient denies saddle anesthesia. Patient denies any current chest pain, fever, shortness breath, nausea, vomiting, change in vision. Past Medical History Past Medical History: Coronary Artery Disease (CAD), COPD, CVA/TIA Additional Past Medical History / Comment(s): 2017 History of Any Multi-Drug Resistant Organisms: None Reported Past Surgical History: Unable to Obtain Past Anesthesia/Blood Transfusion Reactions: No Reported Reaction Past Psychological History: Unable to Obtain Smoking Status: Former smoker, Unknown if ever smoked Past Alcohol Use History: Occasional Past Drug Use History: None Reported Medications and Allergies Home Medications Medication Instructions Recorded Confirmed Type Aspirin EC [Ecotrin Low Dose] 81 mg PO DAILY 05/02/23 05/02/23 History Escitalopram [Lexapro] 5 mg PO HS 05/02/23 05/02/23 History Ezetimibe [Zetia] 10 mg PO DAILY 05/02/23 05/02/23 History Mv-Min/Folic/K1/Lycopen/Lutein 1 tab PO DAILY 05/02/23 05/02/23 History [Centrum Silver Men Tablet] Rosuvastatin Calcium [Crestor] 40 mg PO DAILY 05/02/23 05/02/23 History icosapent ethyL [Icosapent Ethyl] 2 gm PO BID-W/MEALS 05/02/23 05/02/23 History Allergies Allergy/AdvReac Type Severity Reaction Status Date / Time Penicillins Allergy Unknown Verified 05/02/23 22:24 Physical Examination Inspection: Negative for any significant swelling/edema/erythema/open wounds Sensation: Equal, symmetric, bilaterally intact throughout the upper and lower extremities. Palpation: Positive for some mild generalized tenderness to palpation diffusely throughout the cervical spine posteriorly. Nontender to palpation throughout rest exam. Range of motion: Full range of motion throughout bilateral upper and lower extremities on exam. Motor: Right upper and lower extremities 4+/5 throughout all major motor groups. LUE 4-/5 in all major motor groups. LLE 4-/5 in all major motor groups. Special tests: Negative Homans bilaterally. Negative Nellie bilaterally. Neurovascular status: Radial pulses intact, 2+ bilaterally. Cap refill under 3 seconds in digits of upper extremities. Results - Labs Labs: Abnormal Lab Results - Last 24 Hours (Table) 05/06/23 Range/Units 04:08 Plt Count 133 L (150-450) k/uL H & H 05/02/23 05/03/23 05/04/23 Range/Units 21:58 03:43 03:27 Hgb 14.8 13.9 14.3 (13.0-17.5) gm/dL Hct 43.1 40.9 42.7 (39.0-53.0) % 05/05/23 05/06/23 Range/Units 03:31 04:08 Hgb 13.0 14.6 (13.0-17.5) gm/dL Hct 38.8 L 43.6 (39.0-53.0) % Coagulation 05/02/23 05/03/23 Range/Units 21:58 03:43 INR 1.0 1.2 H (<1.2) Result Diagrams: 05/06/23 04:08 05/06/23 04:08 - Diagnostic results Cervical MRI with/without contrast: report reviewed, image reviewed (MRI of the cervical spine has been reviewed. There is evidence degenerative disc disease throughout the cervical spine. From C4 through C7 there is some bilateral neuro foraminal stenosis. Negative for any fractures/subluxations. Negative for any significant central cord stenosis) Assessment and Plan Assessment: 1. Left upper and left lower extremity weakness; bilateral cervical neuroforaminal stenosis; degenerative disc disease Plan: 1. Left upper and left lower extremity weakness; bilateral cervical neuroforaminal stenosis; degenerative disc disease - MRI of the cervical spine has been reviewed. There is evidence degenerative disc disease throughout the cervical spine. From C4 through C7 there is some bilateral neuro foraminal stenosis. Negative for any fractures/subluxations. Negative for any significant central cord stenosis. Patient was examined at bedside this afternoon. Patient does present with some weakness in the left upper and lower extremities on exam. This appears to be resolving over the past several days since patient came into the hospital. Patient is not complaining of any neck pain or upper extremity radiculopathy. At this time we're not recommending any emergent/ urgent orthopedic surgical intervention. We do recommend conservative measures with the use of pain medication and possibly steroids. Weightbearing as tolerated with walker and assistance as needed with therapy. Patient may follow-up in the outpatient setting with Dr. Richardson as needed for further evaluation. Patient is stable from an orthopedic standpoint for discharge. At this time orthopedics is signing off. Please do not hesitate to contact us if any further questions. 2. Appreciate medical and neurology management 3. Pain management - Tylenol 4. GI prophylaxis recs 5. DVT prophylaxis - aspirin; heparin; Plavix 6. PT/OT - weightbearing as tolerated with walker and assistance as needed 7. Encourage incentive spirometer use 8. Appreciate consult Time with Patient: Less than 30
--- NOTE | 2023-05-06 15:23 | P.PN ---
Subjective Progress Note Date: 05/05/23 HISTORY OF PRESENT ILLNESS: This is a 53-year-old male with a previous medical history significant for mixed hyperlipidemia, history of TIA, enlarged prostate, chronic obstructive pulmonary disease, obstructive sleep apnea, quit cigarette smoking about 5 months ago, patient presented to the emergency department at [facility] with the left sided weakness associated with aphasia and left-sided facial droop he was living with his girlfriend when she noticed the changes and she called 911 at around 9:15 PM he came to the ER and he was evaluated by Dr. Jacobo Culver patient had a computed tomography scan of the brain that was negative for acute infarct or bleed at that time, was followed by CTA of the neck and the brain that did not show any evidence of any carotid artery stenosis or any dissection and no sizable aneurysm or thrombosis patient was at the window for alteplase which he received and he was admitted to the intensive care unit, he was seen in consultation by critical care medicine Dr. Hamlin as well as neurology, MRI was orders pending the time of dictation,along with echocardiogram patient was admitted for further evaluation and treatment. 05/04: Remains in the intensive care unit. He underwent a second a CAT scan of the brain yesterday afternoon that did not show any acute findings. He is scheduled for MRI of the brain today at 3:15. He has been seen by neurology recommending ISMAEL and cardiology consult was placed with plan for ISMAEL tomorrow. Patient was evaluated by speech therapy and did well with swallowing but has been started on a chopped diet, no signs of aspiration. Echocardiogram reveals a technically difficult study with normal LV systolic function. Tricuspid is 169, cholesterol 172, LDL 107, HDL 30. Blood pressure 163/96 and losartan 50 no grams daily added. Patient is also been seen by physical therapy and occupational therapy with recommendations for inpatient rehab. 05/05: This morning, patient underwent ISMAEL with Dr. Lynn which revealed normal left ventricle size and systolic function. Normal appearance of the left atrial appendage. Aneurysmal intra-atrial septum with no evidence of shunting. Mild mitral and tricuspid regurgitation. Patient had temperature max of 100.8. Heart rate is in the 70s, respiratory rate 20s. Blood pressure 149/98. Pulse ox 95% on room air.repeat blood work reveals WBC 4.2, hemoglobin 13, platelet count 147. Sodium 136, potassium 4, BUN 12 and creatinine 1. Patient continues to be followed by speech therapy, occupational and physical therapies. MRI of the brain revealed no evidence of intracranial mass, acute/subacute infarct or abnormal enhancement. Minimal nonspecific white matter changes likely small vessel ischemic disease. Patient is followed by neurology and currently on aspirin 81 mg daily, Plavix 75 mg daily and Lipitor 80 mg daily. Consult placed with orthopedics regarding neural foraminal stenosis C4-C7 with moderate to severe bilateral stenosis. REVIEW OF SYSTEMS: Constitutional: No documented fever, no chills, no night sweats. No weight change. No weakness, fatigue or lethargy. No daytime sleepiness. EENT: No headache. No blurred vision or double vision, no loss of vision. No loss of Hearing, no ringing in the ears, no dizziness. No nasal drainage or congestion. No epistaxis. No sore throat. Lungs: No shortness of breath, no cough, no sputum production. No wheezing. Reports dyspnea with activity. Cardiovascular: No chest pain, no lower extremity edema. No palpitations. No paroxysmal nocturnal dyspnea. No orthopnea. No lightheadedness or dizziness. No syncopal episodes. Abdominal: Reports abdominal pain. No nausea, vomiting. No diarrhea. No constipation. No bloody or tarry stools reports loss of appetite. Genitourinary: No dysuria, increased frequency, urgency. No urinary retention. Musculoskeletal: No myalgias. No muscle weakness, no gait dysfunction, no frequent falls. No back pain. No neck pain. Integumentary: No wounds, no lesions. No rash or pruritus. No unusual bruising. No change in hair or nails. Neurologic: No aphasia. No facial droop. No change in mentation. No head injury. No headache. No paralysis. No paresthesia. Psychiatric: No depression. No anxiety. No mood swings. Endocrine: No abnormal blood sugars. No weight change. PHYSICAL EXAMINATION: General: 53-year-old male laying down in bed in no apparent distress. HEENT: Head is atraumatic, normocephalic, pupils were equal round reactive to light and recommendation, extraocular muscle movement were intact, sclera no nicteric, conjunctivae were pale, mucous membranes of the mouth are somewhat dry. Neck: Supple, no JVP, normal carotid upstroke bilaterally, no lymphadenopathy. Chest: Decreased breath sounds at the bases, few rhonchi, no expiratory wheezes, no chest wall tenderness, no intercostal retractions. Heart: First heart sound is normal, second heart sound is normal there is no gallop or murmur. Abdomen: Soft, nontender, nondistended, positive bowel sounds. Extremities: There is no edema no calf tenderness DP +2 bilaterally. Neurologic examination: Patient is awake alert and oriented X3, cranial nerves II-12 appear grossly intact, muscle power were 5 out of 5 in upper extremities and 5 out of 5 in bilateral lower extremities, deep tendon reflexes normal bilaterally. ASSESSMENT AND PLAN: 1. Acute ischemic cerebral vascular accident with left-sided weakness did receive alteplase. Patient is followed by neurology, intensive care medicine, continue to monitor the patient very closely. She, OT, speech therapy consults. Recommendations for inpatient rehab. Consult placed with rehab medicine. 2. Mixed hyperlipidemia continue patient on atorvastatin 80 mg once every day as well as zetia 10 mg once every day, monitor the patient with pedal, keep LDL 55-70. 3. Obstructive sleep apnea. Continue patient on CPAP. 4. Enlarged prostate. Stable. We'll continue to monitor for urinary retention. Try to straight cath for residual volume greater than 300 5. History of TIA continue treatment as in paragraph #1. 6. History of tobacco use and dependence. Patient was scheduled to go for a low-dose computed tomography scan of the lung as a screen for colon cancer. 7. Vitamin D deficiency. Continue patient on vitamin D3 supplement 1999 and once every day. 8. Cervical spine stenosis. Consult with orthopedic spine. 9. DVT prophylaxis. Bilateral knee-high GERMAIN hose. 10. GI prophylaxis. Continue Protonix 40 mg IV push every 24 hours. 10. Full code. Impression and plan of care have been directed as dictated by the signing physician. Marycruz Joyce nurse practitioner acting as scribe for signing physician. Objective - Vital Signs Vital signs: Vital Signs Temp 98.6 F 05/05/23 08:00 Pulse 86 05/05/23 14:45 Resp 12 05/05/23 14:45 BP 149/98 05/05/23 14:45 Pulse Ox 93 L 05/05/23 14:45 FiO2 21 05/05/23 01:06 Intake & Output 05/04/23 05/05/23 05/05/23 18:59 06:59 18:59 Intake Total 1600 700 890 Output Total 1000 1425 1000 Balance 600 -725 -110 Weight 98.6 kg Intake: IV 700 400 Sodium Chloride 0.9% 1, 700 300 000 ml @ 100 mls/hr IV . Q10H [facility] Rx#:[id number] Intake, IV Titration 500 Amount Sodium Chloride 0.9% 1, 500 000 ml @ 100 mls/hr IV . Q10H [facility] Rx#:[id number] Oral 1100 490 Output: Urine 1000 1425 1000 Other: Voiding Method Urinal Urinal Urinal # Voids 1 - Labs CBC & Chem 7: 05/06/23 04:08 05/06/23 04:08 Labs: Abnormal Lab Results - Last 24 Hours (Table) 05/05/23 05/05/23 Range/Units 03:31 03:31 RBC 4.07 L (4.30-5.90) m/uL Hct 38.8 L (39.0-53.0) % Plt Count 147 L (150-450) k/uL Lymphocytes # 0.8 L (1.0-4.8) k/uL Sodium 136 L (137-145) mmol/L Calcium 8.1 L (8.4-10.2) mg/dL
--- NOTE | 2023-05-06 15:51 | P.PN ---
Subjective Progress Note Date: 05/06/23 HISTORY OF PRESENT ILLNESS: This is a 53-year-old male with a previous medical history significant for mixed hyperlipidemia, history of TIA, enlarged prostate, chronic obstructive pulmonary disease, obstructive sleep apnea, quit cigarette smoking about 5 months ago, patient presented to the emergency department at [facility] with the left sided weakness associated with aphasia and left-sided facial droop he was living with his girlfriend when she noticed the changes and she called 911 at around 9:15 PM he came to the ER and he was evaluated by Dr. Jacobo Culver patient had a computed tomography scan of the brain that was negative for acute infarct or bleed at that time, was followed by CTA of the neck and the brain that did not show any evidence of any carotid artery stenosis or any dissection and no sizable aneurysm or thrombosis patient was at the window for alteplase which he received and he was admitted to the intensive care unit, he was seen in consultation by critical care medicine Dr. Hamlin as well as neurology, MRI was orders pending the time of dictation,along with echocardiogram patient was admitted for further evaluation and treatment. 05/04: Remains in the intensive care unit. He underwent a second a CAT scan of the brain yesterday afternoon that did not show any acute findings. He is scheduled for MRI of the brain today at 3:15. He has been seen by neurology recommending ISMAEL and cardiology consult was placed with plan for ISMAEL tomorrow. Patient was evaluated by speech therapy and did well with swallowing but has been started on a chopped diet, no signs of aspiration. Echocardiogram reveals a technically difficult study with normal LV systolic function. Tricuspid is 169, cholesterol 172, LDL 107, HDL 30. Blood pressure 163/96 and losartan 50 no grams daily added. Patient is also been seen by physical therapy and occupational therapy with recommendations for inpatient rehab. 05/05: This morning, patient underwent ISMAEL with Dr. Lynn which revealed normal left ventricle size and systolic function. Normal appearance of the left atrial appendage. Aneurysmal intra-atrial septum with no evidence of shunting. Mild mitral and tricuspid regurgitation. Patient had temperature max of 100.8. Heart rate is in the 70s, respiratory rate 20s. Blood pressure 149/98. Pulse ox 95% on room air.repeat blood work reveals WBC 4.2, hemoglobin 13, platelet count 147. Sodium 136, potassium 4, BUN 12 and creatinine 1. Patient continues to be followed by speech therapy, occupational and physical therapies. MRI of the brain revealed no evidence of intracranial mass, acute/subacute infarct or abnormal enhancement. Minimal nonspecific white matter changes likely small vessel ischemic disease. Patient is followed by neurology and currently on aspirin 81 mg daily, Plavix 75 mg daily and Lipitor 80 mg daily. Consult placed with orthopedics regarding neural foraminal stenosis C4-C7 with moderate to severe bilateral stenosis. 05/06: Patient has been evaluated by rehab services and recommendations for home health care. Patient is also been evaluated by orthopedics regarding left upper and lower extremity weakness and bilateral cervical neural foraminal stenosis and degenerative disc disease. Recommendations are for conservative management with pain medication and possible steroids. Patient be weightbearing as tolerated with walker and assistance as needed. Patient to follow-up with Dr. Richardson as needed. Orthopedics has signed off. Blood pressure 140/96, heart rate in the 80s, temperature max 101.1. Pulse ox 95% on room air. WBC 4.2, hemoglobin 14.6 and platelet count 133. BMP normal. Troponin from last evening normal. Patient will be transferred out of the intensive care unit [facility] and continue telemetry. Cardiology would like event monitor at the time of discharge. Blood culture, urinalysis and reflex culture, chest x-ray ordered. Incentive spirometry added. REVIEW OF SYSTEMS: Constitutional: No documented fever, no chills, no night sweats. No weight change. No weakness, fatigue or lethargy. No daytime sleepiness. EENT: No headache. No blurred vision or double vision, no loss of vision. No loss of Hearing, no ringing in the ears, no dizziness. No nasal drainage or congestion. No epistaxis. No sore throat. Lungs: No shortness of breath, no cough, no sputum production. No wheezing. Reports dyspnea with activity. Cardiovascular: No chest pain, no lower extremity edema. No palpitations. No paroxysmal nocturnal dyspnea. No orthopnea. No lightheadedness or dizziness. No syncopal episodes. Abdominal: Reports abdominal pain. No nausea, vomiting. No diarrhea. No constipation. No bloody or tarry stools reports loss of appetite. Genitourinary: No dysuria, increased frequency, urgency. No urinary retention. Musculoskeletal: No myalgias. No muscle weakness, no gait dysfunction, no frequent falls. No back pain. No neck pain. Integumentary: No wounds, no lesions. No rash or pruritus. No unusual bruising. No change in hair or nails. Neurologic: No aphasia. No facial droop. No change in mentation. No head injury. No headache. No paralysis. No paresthesia. Psychiatric: No depression. No anxiety. No mood swings. Endocrine: No abnormal blood sugars. No weight change. PHYSICAL EXAMINATION: General: 53-year-old male laying down in bed in no apparent distress. HEENT: Head is atraumatic, normocephalic, pupils were equal round reactive to light and recommendation, extraocular muscle movement were intact, sclera nonicteric, conjunctivae were pale, mucous membranes of the mouth are somewhat dry. Neck: Supple, no JVP, normal carotid upstroke bilaterally, no lymphadenopathy. Chest: Decreased breath sounds at the bases, few rhonchi, no expiratory wheezes, no chest wall tenderness, no intercostal retractions. Heart: First heart sound is normal, second heart sound is normal there is no gallop or murmur. Abdomen: Soft, nontender, nondistended, positive bowel sounds. Extremities: There is no edema no calf tenderness DP +2 bilaterally. Neurologic examination: Patient is awake alert and oriented X3, cranial nerves II-12 appear grossly intact, muscle power were 5 out of 5 in upper extremities and 5 out of 5 in bilateral lower extremities, deep tendon reflexes normal bilaterally. ASSESSMENT AND PLAN: 1. Acute ischemic cerebral vascular accident with left-sided weakness did receive alteplase. Patient is followed by neurology, intensive care medicine, continue to monitor the patient very closely. Continue PT, OT, speech therapy c onsults. Consult placed with rehab medicine and recommended home with home care. 2. Mixed hyperlipidemia continue patient on atorvastatin 80 mg once every day as well as zetia 10 mg once every day, monitor the patient with pedal, keep LDL 55-70. 3. Obstructive sleep apnea. Continue patient on CPAP. 4. Enlarged prostate. Stable. We'll continue to monitor for urinary retention. Try to straight cath for residual volume greater than 300 5. History of TIA continue treatment as in paragraph #1. 6. History of tobacco use and dependence. Patient was scheduled to go for a low-dose computed tomography scan of the lung as a screen for colon cancer. 7. Vitamin D deficiency. Continue patient on vitamin D3 supplement 1999 and once every day. 8. Cervical spine stenosis. Consult with orthopedic spine. 9. Febrile illness. Blood culture, urine culture, chest x-ray. Incentive spi rometry added. 10. DVT prophylaxis. Bilateral knee-high GERMAIN hose. 11. GI prophylaxis. Continue Protonix 40 mg IV push every 24 hours. 12. Full code. Impression and plan of care have been directed as dictated by the signing physician. Marycruz Joyce nurse practitioner acting as scribe for signing physician. Objective - Vital Signs Vital signs: Vital Signs Temp 98.0 F 05/06/23 12:00 Pulse 71 05/06/23 12:00 Resp 16 05/06/23 12:00 BP 139/96 05/06/23 12:00 Pulse Ox 94 L 05/06/23 12:00 FiO2 21 05/06/23 03:16 Intake & Output 05/05/23 05/06/23 05/06/23 18:59 06:59 18:59 Intake Total 890 720 140 Output Total 1000 1600 Balance -110 -880 140 Weight 96.4 kg Intake: IV 400 220 140 Sodium Chloride 0.9% 1, 300 000 ml @ 100 mls/hr IV . Q10H [facility] Rx#:[id number] Sodium Chloride 0.9% 1, 220 140 000 ml @ 20 mls/hr IV . Q24H [facility] Rx#:[id number] Oral 490 500 Output: Urine 1000 1600 Other: Voiding Method Urinal Urinal Urinal # Voids 1 - Labs CBC & Chem 7: 05/06/23 04:08 05/06/23 04:08 Labs: Abnormal Lab Results - Last 24 Hours (Table) 05/06/23 Range/Units 04:08 Plt Count 133 L (150-450) k/uL
--- NOTE | 2023-05-06 16:05 | XR ---
EXAMINATION TYPE: XR chest 1V portable DATE OF EXAM: 05/06/2023 COMPARISON: 05/03/2023 INDICATION: Fever TECHNIQUE: Single frontal view of the chest is obtained. FINDINGS: The heart size is normal. The pulmonary vasculature is normal. The lungs are clear. IMPRESSION: 1. No acute pulmonary process.
[2023-05-06 19:31] LABS: Appearance,Urine Clear (Clear); Bilirubin,Urine Negative (Negative); Blood,Urine Negative (Negative); Color,Urine Yellow; Glucose,Urine (UA) Negative (Negative); Ketones,Urine Negative (Negative); Leukocyte Esterase,Urine Negative (Negative); Nitrite,Urine Negative (Negative); Protein,Urine Negative (Negative); Urobilinogen,Urine <2.0 mg/dL (<2.0)
[2023-05-06] MEDS: TRIAMCINOLONE 0.1% CREAM 80 GM TUBE TOPICAL SCH (20:33)
[2023-05-06] MEDS: ESCITALOPRAM 5 MG TAB PO SCH (20:33)
[2023-05-07] MEDS: Icosapent Ethyl [Icosapent Ethyl] 1 GM Capsule PO SCH (06:33)
[2023-05-07 08:13] VITALS: RESP 16
[2023-05-07] MEDS: HEPARIN SODIUM,PORCINE 5,000 UNIT/ML 1 ML VIAL SQ SCH (08:37)
[2023-05-07] MEDS: ATORVASTATIN 80 MG TAB PO SCH (08:37)
[2023-05-07] MEDS: ASPIRIN 81 MG PO SCH (08:37)
[2023-05-07] MEDS: EZETIMIBE 10 MG TAB PO SCH (08:37)
[2023-05-07] MEDS: LOSARTAN 50 MG TAB PO SCH (08:37)
[2023-05-07] MEDS: CLOPIDOGREL 75 MG TAB PO SCH (08:37)
[2023-05-07] MEDS: MULTIVITAMINS, THERA 1 EACH TAB PO SCH (08:37)
[2023-05-07] MEDS: TRIAMCINOLONE 0.1% CREAM 80 GM TUBE TOPICAL SCH (08:40)
--- NOTE | 2023-05-07 09:32 | P.PN ---
Subjective Progress Note Date: 05/07/23 This is a 53-year-old male patient with a known history of hyperlipidemia, anxiety/depression obstructive sleep apnea on CPAP at 10 cm of water. He presented to the emergency room last evening after developing aphasia and left- sided weakness. Code stroke was activated and he was seen by neurology who d eemed him qualified for alteplase administration. Computed tomography scan of the brain revealed no acute intracranial abnormality. CT angiogram revealed no significant carotid stenosis. No intracranial major vascular occlusion or significant stenosis, no sizable aneurysm. Chest x-ray reveals some basilar atelectasis with a shallow inspiration. White count 5.7. Hemoglobin 13.9. Platelets 180. Sodium 140. Potassium 4.3. Bicarb 23. BUN 12. Creatinine 0.96. Glucose 100. He is seen today in consultation in the intensive care unit. He is awake and alert. He still has a left-sided facial droop and left- sided weakness and unable to resist gravity. Current NIH score of 9. He has poli e mild to moderate slurring of words. He is maintaining good O2 saturations in the 90s on room air. He's afebrile. Hemodynamically stable. On 05/04/2023, the patient is still in the intensive care unit being followed followed up following is an acute CVA. The patient has weakness bilaterally. Initial presentation work for left-sided weakness, dysarthria and left facial droop. The patient received thrombolytics on 05/02/2023. The repeat CAT scan of the brain was done on 05/03/2023 at 1433 and it showed no acute intracranial process. The patient currently still having weakness bilaterally. Motor function is quite limited and the strength is approximately 3 out of 5 both upper and lower extremities. He is able to speak full sentences. Is not having any aphasia. He is slightly delayed. Sodiums of 140, potassium is at 4, BUN is at 60 with a creatinine of 0.9. The previous count of 5.9, he was 14.4. The patient is having an echocardiogram today. His cardiac rhythm is sinus. Neurology is on the case. Hemodynamically, he is stable, no hypotension, no hypertension. No fever. Encounter some headaches yesterday currently is free of any headache. He is on a CPAP regarding his obstructive sleep apnea which is at a pressure of 10 cm of water. On 05/05/2023, the patient is feeling better. The strength is also improving all 4 extremities. Speech is almost back to normal. No facial asymmetry. No headaches. MRI of the brain was done yesterday and showed negative ab normalities. CAT scan of the brain was also noted. No evidence of any bleed. Echocardiogram was also within normal limits. The patient is going to undergo a ISMAEL today. Aspirin was started at a dose of 81 mg by mouth daily. The patient was also started on high-dose statins 80 mg of Lipitor daily along with ataxia. His LDL cholesterol is at 107. He is also on Plavix. White cell count is at 4.2. Hemoglobin is at 13. Platelet count is at 147, BUN is at 12 and a creatinine of 1.0. Utilizing CPAP overnight. No other significant events. No seizure activity. No altered mentation. He is communicating. He is swallowing food appropriately. On 05/06/2023, the patient continues to have some weakness on the left especially the left upper extremity. Each is normal. Swallowing is normal. Is ambulating. ISMAEL was done yesterday and it showed no acute abnormalities and the patient remains on a combination of aspirin and Plavix. Hemodynamically stable. No hypertension. No hypotension. Cardiac rhythm is sinus. Utilizing CPAP overnight. No seizure activity. No altered mentation. Labs from today shows a white cell count of 4.2, hemoglobin is 14, renal function is stable, elec trolytes are all stable. On today's evaluation of 05/07/2023, the patient feels that his strength is gradually improving on the left. He had a MRI of the cervical spine that showed no evidence of any disc herniation or significant spinal canal stenosis. The patient had multilevel this degeneration with associated osteoarthritis with foraminal stenosis worse at the level of C4 to C7 with moderate to severe changes bilaterally. Based on that, the patient underwent an orthopedic surgical evaluation. The patient's will be seen by the orthopedic surgeon. No other significant events overnight. He remains on aspirin and Plavix. Cardiac rhythm is sinus. Tolerating diet. Ambulating. Objective - Vital Signs Vital signs: Vital Signs Temp 97.7 F 05/07/23 07:57 Pulse 80 05/07/23 07:57 Resp 16 05/07/23 07:57 BP 132/88 05/07/23 07:57 Pulse Ox 93 L 05/07/23 07:57 FiO2 21 05/07/23 03:29 Intake & Output 05/06/23 05/07/23 05/07/23 18:59 06:59 18:59 Intake Total 1190 Output Total 500 1150 Balance 690 -1150 Weight 96.2 kg Intake: IV 140 Sodium Chloride 0.9% 1, 140 000 ml @ 20 mls/hr IV . Q24H [facility] Rx#:[id number] Oral 1050 Output: Urine 500 1150 Other: Voiding Method Urinal Urinal # Voids 1 - Exam GENERAL EXAM: Alert, 53-year-old male, on room air, comfortable in no apparent distress. The patient is still on a CPAP at a pressure of 10 cm of water which she uses overnight. HEAD: Normocephalic. Left sided facial droop EYES: Normal reaction of pupils, equal size. NOSE: Clear with pink turbinates. THROAT: No erythema or exudates. NECK: No masses, no JVD. CHEST: No chest wall deformity. LUNGS: Equal air entry with no crackles, wheeze, rhonchi or dullness. CVS: S1 and S2 normal with no audible murmur, regular rhythm. ABDOMEN: No hepatosplenomegaly, normal bowel sounds, no guarding or rigidity. SPINE: No scoliosis or deformity SKIN: No rashes CENTRAL NERVOUS SYSTEM: The upper and lower extremity weakness, unable to resist gravity, tone is normal in all 4 extremities. Motor function is around 3 out of 5 in all 4 extremities. Speech is delayed. Speech is adequate at its delayed. EXTREMITIES: There is no peripheral edema. No clubbing, no cyanosis. Peripher al pulses are intact. - Labs CBC & Chem 7: 05/06/23 04:08 05/06/23 04:08 Assessment and Plan Plan: Acute cerebrovascular accident resulting in left-sided weakness, initial aphasia and left-sided facial droop. Received alteplase at 22:10 on 05/02/2023, still having motor weakness bilaterally. Neurology is on the case. Echocardiogram is negative for any acute abnormalities. MRI of the brain was also negative for acute CVA.. Hemodynamically stable. Cardiac rhythm is sinus. The patient limited on aspirin on outpatient basis. He is back on aspirin 81 mg and Plavix 75 mg by mouth daily. Clinically stable, residual weakness on the left. ISMAEL is within normal limits. My of the spine was done and the patient had severe arthritic changes at the level of C4 through C7. No evidence of any stenosis or disc herniation or compromise of the spinal cord. History of TIA 7 months ago Hyperlipidemia Anxiety/depression Obstructive sleep apnea, on CPAP, currently on a CPAP pressure of 10 cm of water Plan: Clinically stable, still has some weakness on the left MRI of the cervical spine was noted and the patient is awaiting orthopedic surgical evaluation Doing some progress although there is some residual weakness on the left May need a extended Holter monitor to rule out paroxysmal A. fib and this will be discussed with cardiology We will remove the CPAP once the patient is fully awake Provide incentive spirometer Lipid profile was checked and LDL level is at 107 and the patient is on Lipitor is at. Continue neurologic evaluations MRI of the brain noted and there is no evidence of any acute CVA Neurology on the case Swallow adequate We will continue to follow and make further recommendations based on his clinical status Transfer outside intensive care unit today.
--- NOTE | 2023-05-07 11:28 | P.DS ---
Providers Date of admission: 05/03/23 00:34 Expected date of discharge: 05/07/23 Attending physician: Martin Overton Consults: 05/03/23 00:33 Consult Physician Routine Consulting Provider: Neela Thomas Consult Reason/Comments: code alteplase Do you want consulting provider notified?: Yes 05/03/23 01:20 Consult Physician Routine Consulting Provider: Juan Hamlin Consult Reason/Comments: ICU management Do you want consulting provider notified?: Already Contacted 05/04/23 13:25 Consult Physician Routine Consulting Provider: Andres Lynn Consult Reason/Comments: CVA, neuro requesting ISMAEL Do you want consulting provider notified?: Yes 05/04/23 15:44 Consult Physician Routine Consulting Provider: Tavo Apodaca Consult Reason/Comments: IP rehab Do you want consulting provider notified?: Yes 05/06/23 11:58 Consult Physician Routine Consulting Provider: Mando Richardson Consult Reason/Comments: cervical stenosis with left sided weakness Do you want consulting provider notified?: Yes Primary care physician: Martin Overton Hospital Course: HISTORY OF PRESENT ILLNESS: This is a 53-year-old male with a previous medical history significant for mixed hyperlipidemia, history of TIA, enlarged prostate, chronic obstructive pulmonary disease, obstructive sleep apnea, quit cigarette smoking about 5 months ago, patient presented to the emergency department at [facility] with the left sided weakness associated with aphasia and left-sided facial droop he was living with his girlfriend when she noticed the changes and she called 911 at around 9:15 PM he came to the ER and he was evaluated by Dr. Jacobo Culver patient had a computed tomography scan of the brain that was negative for acute infarct or bleed at that time, was followed by CTA of the neck and the brain that did not show any evidence of any carotid artery stenosis or any dissection and no sizable aneurysm or thrombosis patient was at the window for alteplase which he received and he was admitted to the intensive care unit, he was seen in consultation by critical care medicine Dr. Hamlin as well as neurology, MRI was orders pending the time of dictation,along with echoca rdiogram patient was admitted for further evaluation and treatment. 05/04: Remains in the intensive care unit. He underwent a second a CAT scan of the brain yesterday afternoon that did not show any acute findings. He is scheduled for MRI of the brain today at 3:15. He has been seen by neurology recommending ISMAEL and cardiology consult was placed with plan for ISMAEL tomorrow. Patient was evaluated by speech therapy and did well with swallowing but has been started on a chopped diet, no signs of aspiration. Echocardiogram reveals a technically difficult study with normal LV systolic function. Tricuspid is 169, cholesterol 172, LDL 107, HDL 30. Blood pressure 163/96 and losartan 50 no grams daily added. Patient is also been seen by physical therapy and occupational therapy with recommendations for inpatient rehab. 05/05: This morning, patient underwent ISMAEL with Dr. Lynn which revealed normal left ventricle size and systolic function. Normal appearance of the left atrial appendage. Aneurysmal intra-atrial septum with no evidence of shunting. Mild mitral and tricuspid regurgitation. Patient had temperature max of 100.8. Heart rate is in the 70s, respiratory rate 20s. Blood pressure 149/98. Pulse ox 95% on room air.repeat blood work reveals WBC 4.2, hemoglobin 13, platelet count 147. Sodium 136, potassium 4, BUN 12 and creatinine 1. Patient continues to be followed by speech therapy, occupational and physical therapies. MRI of the brain revealed no evidence of intracranial mass, acute/subacute infarct or abnormal enhancement. Minimal nonspecific white matter changes likely small vessel ischemic disease. Patient is followed by neurology and currently on aspirin 81 mg daily, Plavix 75 mg daily and Lipitor 80 mg daily. Consult placed with orthopedics regarding neural foraminal stenosis C4-C7 with moderate to severe bilateral stenosis. 05/06: Patient has been evaluated by rehab services and recommendations for home health care. Patient is also been evaluated by orthopedics regarding left upper and lower extremity weakness and bilateral cervical neural foraminal stenosis and degenerative disc disease. Recommendations are for conservative management with pain medication and possible steroids. Patient be weightbearing as tolerated with walker and assistance as needed. Patient to follow-up with Dr. Richardson as needed. Orthopedics has signed off. Blood pressure 140/96, heart rate in the 80s, temperature max 101.1. Pulse ox 95% on room air. WBC 4.2, hemoglobin 14.6 and platelet count 133. BMP normal. Troponin from last evening normal. Patient will be transferred out of the intensive care unit [facility] and continue telemetry. Cardiology would like event monitor at the time of discharge. Blood culture, urinalysis and reflex culture, chest x-ray ordered. Incentive spirometry added. 05/07: Patient continues to have increasing strength in his left side. He has been maintained on aspirin and Plavix. No difficulty with swallowing. Due to documented fever, urinalysis and chest x-ray were ordered which both came back negative. Blood cultures status received. Patient will be discharged home today in stable condition. DISCHARGE DIAGNOSES: 1. Acute ischemic cerebral vascular accident with left-sided weakness did receive alteplase. 2. Mixed hyperlipidemia 3. Obstructive sleep apnea. 4. Enlarged prostate. 5. History of TIA 6. History of tobacco use and dependence. 7. Vitamin D deficiency. 8. Cervical spine stenosis. 9. Febrile illness. DISCHARGE PLAN: HOME WITH HOME CARE Greater than 35 minutes was utilized and coordinating patient's discharge. Impression and plan of care have been directed as dictated by the signing physician. Marycruz Joyce nurse practitioner acting as scribe for signing physician. Patient Condition at Discharge: Stable Plan - Discharge Summary New Discharge Prescriptions: New Calamine/Zinc Oxide Lotion [Calamine Lotion] 1 applic TOPICAL QID PRN each PRN Reason: Skin Irritation Losartan [Cozaar] 50 mg PO DAILY #30 tab Atorvastatin [Lipitor] 80 mg PO DAILY #30 tab Clopidogrel [Plavix] 75 mg PO DAILY #30 tab Continue Mv-Min/Folic/K1/Lycopen/Lutein [Centrum Silver Men Tablet] 1 tab PO DAILY Ezetimibe [Zetia] 10 mg PO DAILY Escitalopram [Lexapro] 5 mg PO HS Aspirin EC [Ecotrin Low Dose] 81 mg PO DAILY icosapent ethyL [Icosapent Ethyl] 2 gm PO BID-W/MEALS Discontinued Rosuvastatin Calcium [Crestor] 40 mg PO DAILY Discharge Medication List Aspirin EC [Ecotrin Low Dose] 81 mg PO DAILY 05/02/23 [History] Escitalopram [Lexapro] 5 mg PO HS 05/02/23 [History] Ezetimibe [Zetia] 10 mg PO DAILY 05/02/23 [History] Mv-Min/Folic/K1/Lycopen/Lutein [Centrum Silver Men Tablet] 1 tab PO DAILY 05/02/23 [History] icosapent ethyL [Icosapent Ethyl] 2 gm PO BID-W/MEALS 05/02/23 [History] Atorvastatin [Lipitor] 80 mg PO DAILY #30 tab 05/07/23 [Rx] Calamine/Zinc Oxide Lotion [Calamine Lotion] 1 applic TOPICAL QID PRN each 05/07/23 [Rx] Clopidogrel [Plavix] 75 mg PO DAILY #30 tab 05/07/23 [Rx] Losartan [Cozaar] 50 mg PO DAILY #30 tab 05/07/23 [Rx] Follow up Appointment(s)/Referral(s): [facility], [NON-STAFF] - 1 Week (will reach out to you) Andres Lynn MD [STAFF PHYSICIAN] - 2 Weeks (please call to make appointment) Martin Overton MD [Primary Care Provider] - 1 Week (please call to make appointment) Patient Instructions/Handouts: Ischemic Stroke (DC) Discharge Disposition: HOME WITH HOME HEALTH SERVICES
[2023-05-07 12:38] VITALS: BP 116/73; PULSE 84; TEMP 98.2
== END 2023-05-07 14:36 | disposition home health service (06) | DRG 62 ==
LOC: EC 21:38 → 2SICU 05-03 00:34
PROVIDERS: ADMIT Internal Medicine; ATTEND Internal Medicine
PROC: 3E03317 Introduction of Other Thrombolytic into Peripheral Vein, Percutaneous Approach (ICD-10-PCS; principal; 2023-05-03)
PROC: B24BZZ4 Ultrasonography of Heart with Aorta, Transesophageal (ICD-10-PCS; 2023-05-05)
DX: I63.9 Cerebral infarction, unspecified (principal); G81.94 Hemiplegia, unspecified affecting left nondominant side; I25.3 Aneurysm of heart; J98.11 Atelectasis; R47.1 Dysarthria and anarthria; R29.810 Facial weakness; R29.716 NIHSS score 16; E55.9 Vitamin D deficiency, unspecified; I08.1 Rheumatic disorders of both mitral and tricuspid valves; E78.2 Mixed hyperlipidemia; F32.A Depression, unspecified; R47.01 Aphasia; F41.9 Anxiety disorder, unspecified; J44.9 Chronic obstructive pulmonary disease, unspecified; G47.33 Obstructive sleep apnea (adult) (pediatric); G89.29 Other chronic pain; R47.81 Slurred speech; Z86.73 Personal history of transient ischemic attack (TIA), and cerebral infarction without residual deficits; I10 Essential (primary) hypertension; I25.10 Atherosclerotic heart disease of native coronary artery without angina pectoris; M19.90 Unspecified osteoarthritis, unspecified site; M48.02 Spinal stenosis, cervical region; M50.30 Other cervical disc degeneration, unspecified cervical region; N40.0 Benign prostatic hyperplasia without lower urinary tract symptoms; Z79.02 Long term (current) use of antithrombotics/antiplatelets; Z79.82 Long term (current) use of aspirin; Z79.899 Other long term (current) drug therapy; Z82.49 Family history of ischemic heart disease and other diseases of the circulatory system; Z87.891 Personal history of nicotine dependence; Z88.0 Allergy status to penicillin
CPT/HCPCS: 36415; 37195; 70450; 70496; 70498; 70551; 70553; 71045; 71046; 72141; 80048; 80053; 80061; 81003; 82550; 83735; 84484; 85025; 85610; 85730; 87040; 93005; 93306; 93312; 93320; 93325; 94660; 96360; 99291; 99292

== ENCOUNTER 2023-07-29 06:22 | Day surgery (SDC) | payer BC ==
[~2023-07-29 06:22] MED LIST: ALPRAZolam 0.25 MG TAB PO PRN; ALPRAZolam 0.5 MG TAB PO PRN; HEPARIN SODIUM,PORCINE (1 ML) 2,500 UNIT in SODIUM CHLORIDE 0.9% 250 ML IRRIGATION PRN; HEPARIN SODIUM,PORCINE 10,000 UNIT in SODIUM CHLORIDE 0.9% 1,000 ML IRRIGATION PRN; NITROGLYCERIN SL TABS 0.4 MG TAB SUBLINGUAL PRN
[2023-07-29] MEDS: SODIUM CHLORIDE 0.9% 1,000 ML IV ONE (06:59)
[2023-07-29] MEDS: LIDOCAINE 1% INJ 10MG/ML (20 ML MDV) SQ ONE (12:19)
[2023-07-29] MEDS: fentaNYL (PF) 50 MCG/1 ML VIAL IVP ONE (12:19)
[2023-07-29] MEDS: VERAPAMIL SYRINGE (5 MG/10 ML) INTRAARTER ONE (12:23)
[2023-07-29] MEDS: HEPARIN SODIUM 1,000 UN/ML (10ML VL) IVP ONE ×2 (12:27→12:35)
[2023-07-29] MEDS: CLOPIDOGREL 75 MG TAB PO ONE (12:38)
[2023-07-29] MEDS: IOPAMIDOL-370 100ML BTL INTRATHECA ONE (13:25)
[2023-07-29] MEDS ORDERED: ATROPINE SULFATE 0.1 MG/ML 10ML SYRINGE IV PRN (13:42)
[2023-07-29] MEDS ORDERED: RX INFO: IV CONTRAST WAS GIVEN 1 EACH MISC MISCELLANE PRN (13:42)
[2023-07-29] MEDS ORDERED: NITROGLYCERIN SL TABS 0.4 MG TAB SUBLINGUAL PRN (13:42)
[2023-07-29] MEDS ORDERED: ZOLPIDEM 5 MG TAB PO PRN (13:42)
[2023-07-29] MEDS ORDERED: MAG HYDROX/AL HYDROX/SIMETH 30 ML CUP PO PRN (13:42)
--- NOTE | 2023-07-29 13:51 | P.CARDCATH ---
Date of Procedure: 07/29/23 Description of Procedure: Cardiac Catheterization: The patient is a 53-year-old male with a known history of hypertension and hyperlipidemia who has been complaining symptoms of chest discomfort and had an abnormal MPI. Recommendations were made regarding cardiac catheterization, the risks and the complications were discussed with the patient who is in full understanding and agreement. Procedure Description: Patient was brought to lab analyst in fasting semi-sedated state after receiving Fentanyl and Benadryl achieiving moderate conscious sedated state. Using Xylocaine Anesthesia and modified Seldinger technique, a 6-Guamanian sheath was introduced in the left radial artery . Subsequently, selective coronary angiography was performed using a 5-Guamanian 4 bend right Yi and 3.5 left Yi catheter. Multiple views of the coronary artery including hemiaxial views were obtained. The 6 Guamanian pigtail catheter was used to cross the aortic valve and LVEDP was calculated. PCI: A 6 Guamanian FR 4 guiding catheter was introduced and the system and after cannulating the right coronary ostium a 0.014 BMW J-wire was positioned in the distal RCA. A Crocodile Gold eye IVUS catheter was introduced and images were obtained, subsequently a 3.0 x 12 mm NC trek balloon was advanced and multiple inflation at 8 yusra were done. Subsequently a 4.0 x 38 mm Xience francie point was deployed distally at 16 yusra, after removing the balloon another 4.0 x 38 mm Xience francie point stent was deployed proximal to the first one at 16 yusra and subsequently a 4.0 x 23 mm Xience francie point was deployed in the proximal segment of the RCA at 16 yusra. Repeat IVUS imaging was performed and after removing the catheter a 4.0 x 20 mm NC trek balloon was advanced and multiple inflation at 10 yusra were done. Subsequently the wire was removed and images were obtained and revealed stable successful stenting. Following that, catheter and sheath were removed. Hemostasis was obtained with deployment of vascular band . There was no immediate complication. Patient was returned to room in stable condition. Of note, the patient received a total of 8000 units of intravenous heparin as well as intra-arterial verapamil. He received an oral loading dose of clopidogrel. His ACT was monitored. He had chest discomfort that resolved at the end of the procedure. Findings: Fluoroscopy: Calcification of the LAD was noted. Left main: This is a large size vessel, bifurcating into LAD and left circumflex, left main has no obstructive disease. LAD: This is a large size vessel, giving rise to a large proximal diagonal branch. The LAD has mild intimal disease in the proximal segment of 10 to 20%. Left circumflex: This is a nondominant vessel giving rise to 3 obtuse marginal branch. The first obtuse marginal branch has mild plaque of 10% without any high-grade stenosis. RCA: This is a large dominant vessel, bifurcating distally to PDA and PLV. The vessel is diffusely diseased with focal area of stenosis of 95 % distally, 80% in the midsegment and 70% proximally. Left Ventriculogram: Not performed Hemodynamics: There was no gradient across aortic valve, LVEDP was 5-10 mmHg Conclusion: 1. Severe diffuse disease in the RCA 2. Mild disease in the LAD and left circumflex 3. Successful stenting of a long segment of the RCA with reduction of stenosis from 95% to 0% with IVUS imaging 4. Right dominance Recommendations: The patient will continue on aspirin and clopidogrel without any interruption for 6 months in addition to aggressive coronary risks modification, attempting to maintain LDL to less than 70 mg/dL. The findings and the recommendations were discussed with the patient and the family and they were in full understanding and agreement. Duration of sedation is 68 minutes.
[2023-07-29] MEDS: SODIUM CHLORIDE 0.9% 1,000 ML in EMPTY BAG 1 BAG IV SCH ×2 (16:29→18:52)
[2023-07-29] MEDS: ATORVASTATIN 80 MG TAB PO ONE (16:30)
[2023-07-29] MEDS: ASPIRIN 325 MG TAB PO ONE (16:30)
[2023-07-29] MEDS: PATIENT'S OWN (Icosapent Ethyl [Icosapent Ethyl] 1 GM Capsule) PO SCH (18:52)
[2023-07-29] MEDS: ESCITALOPRAM 5 MG TAB PO SCH (20:29)
[2023-07-30 03:35] VITALS: RESP 16; TEMP 98.4
[2023-07-30 06:34] LABS: Basophils % (A) 1 %; Eosinophils # (A) 0.5 k/uL (0-0.7); Eosinophils % (A) 8 %; HCT 41.4 % (39.0-53.0); HGB 14.2 gm/dL (13.0-17.5); Lymphocytes # (A) 1.7 k/uL (1.0-4.8); Lymphocytes % (A) 25 %; MCH 32.4 pg (25.0-35.0); MCHC 34.2 g/dL (31.0-37.0); MCV 94.8 fL (80.0-100.0); Monocytes # (A) 0.6 k/uL (0-1.0); Monocytes % (A) 9 %; Neutrophils # (A) 3.8 k/uL (1.3-7.7); Neutrophils % (A) 56 %; Platelet Count 179 k/uL (150-450); RBC 4.37 m/uL (4.30-5.90); RDW 12.4 % (11.5-15.5); WBC 6.8 k/uL (3.8-10.6)
[2023-07-30 06:58] LABS: African American GFR (CKD) >90 (>60 ml/min/1.73 sqM); Anion Gap 5 mmol/L; Blood Urea Nitrogen 14 mg/dL (9-20); Calcium 8.6 mg/dL (8.4-10.2); Carbon Dioxide 24 mmol/L (22-30); Chloride 109 mmol/L (98-107); Glucose 91 mg/dL (74-99); Non-African American GFR(CKD) >90 (>60 ml/min/1.73 sqM); Potassium 4.6 mmol/L (3.5-5.1); Sodium 138 mmol/L (137-145)
--- NOTE | 2023-07-30 07:36 | P.PN ---
Subjective Progress Note Date: 07/30/23 PROGRESS NOTE The patient is a 53-year-old male with known history of hypertension and hyperlipidemia who presented with symptoms of angina pectoris and positive stress test. Underwent coronary angiography and revealed severe obstructive disease in the RCA and underwent stenting of that vessel. He is feeling better today. He feels that his breathing is better. He has no chest discomfort. He continues to be in sinus mechanism. He has no dizziness palpitations or syncope. Medications: Aspirin, Lipitor 80 mg daily, Plavix 75 mg daily, ezetimibe 10 mg daily, losartan 50 mg daily, PHYSICAL EXAMINATION: Blood pressure 116/79 heart rate 69 LUNGS: Clear to auscultation HEART: Regular rate and rhythm, S1, S2. No S3. No systolic murmur ABDOMEN: Soft, nontender, no organomegaly EXTREMETIES: No edema, right radial pulse intact LAB: BUN 14, creatinine 1.85. EKG sinus mechanism with no acute ST segment changes. IMPRESSION: 1. Status post stenting of the RCA 2. History of hypertension 3. History of hyperlipidemia PLAN: 1. Dual antiplatelet treatment for 6 months 2. Increase physical activity 3. Discharge home today 4. Follow-up as an outpatient Objective - Vital Signs Vital signs: Vital Signs Temp 98.4 F 07/30/23 02:08 Pulse 69 07/30/23 02:08 Resp 16 07/30/23 02:08 BP 116/79 07/30/23 02:08 Pulse Ox 95 07/30/23 02:08 FiO2 Intake & Output 07/29/23 07/30/23 07/30/23 18:59 06:59 18:59 Intake Total 250 Balance 250 Intake: IV 250 Other: # Voids 1 - Labs CBC & Chem 7: 07/30/23 05:37 07/30/23 05:37 Labs: Abnormal Lab Results - Last 24 Hours (Table) 07/30/23 Range/Units 05:37 Chloride 109 H (98-107) mmol/L
[2023-07-30 08:54] VITALS: BP 117/70; PULSE 78
[2023-07-30] MEDS: ASPIRIN 81 MG PO SCH (08:55)
[2023-07-30] MEDS: EZETIMIBE 10 MG TAB PO SCH (08:55)
[2023-07-30] MEDS: CLOPIDOGREL 75 MG TAB PO SCH (08:55)
[2023-07-30] MEDS: ATORVASTATIN 80 MG TAB PO SCH (08:55)
[2023-07-30] MEDS: LOSARTAN 50 MG TAB PO SCH (08:56)
[2023-07-30 11:38] VITALS: BMI 33.2
== END 2023-07-30 11:40 | disposition home or self-care (01) ==
LOC: CATHCVL 06:22 → 6NMEDSUR 13:25 → CATHCVL 07-30 11:40
PROVIDERS: ATTEND Internal Medicine Interventional Cardiology
DX: I25.10 Atherosclerotic heart disease of native coronary artery without angina pectoris (principal); I10 Essential (primary) hypertension; E78.5 Hyperlipidemia, unspecified; Z82.49 Family history of ischemic heart disease and other diseases of the circulatory system; Z79.899 Other long term (current) drug therapy
CPT/HCPCS: 92978; 93458; 80048; 85025; C9600; C1769 ×3; C1887; C1894; C1753; C1874 ×2; C1725 ×2; J2001; J1644; Q9967; J3010

== ENCOUNTER → 2023-11-11 | Outpatient (CLI) | payer OTHER ==
--- NOTE | 2023-11-11 09:48 | CT ---
EXAMINATION TYPE: CT brain wo con DATE OF EXAM: 11/11/2023 COMPARISON: 05/03/2023 HISTORY: FOLLOW UP FOR STROKE BACK IN MAY 2023 CT DLP: [address] of the brain was performed. The ventricles, basal cisterns and sulci overlying the cerebral convexities demonstrate mild enlargem ent. There is no evidence for intracranial hemorrhage or sulcal effacement. There is decreased attenuation about the periventricular white matter and deep white matter of both c erebral hemispheres, compatible with chronic small vessel ischemia. Differential diagnosis does inclu de demyelination. No mass effects are seen.No midline shift. Osseous calvarium is intact. If symptoms persist consider MRI. IMPRESSION: 1. Age related atrophic and chronic small vessel ischemic change without acute intracranial process s een at this time.
--- NOTE | 2023-11-11 17:33 | CTL ---
EXAMINATION TYPE: CT Low Dose Lung DATE OF EXAM ORDERED: 11/11/2023 HISTORY: History of tobacco use for 35 years, quit 3 years ago. Lung cancer screening CT DLP: [address] CTDI: 2.07 mGy Automated exposure control for dose reduction was used. SCREENING VISIT: First screening visit COMPARISON: Chest radiograph 05/06/2023 TECHNIQUE: Low dose computed tomography scan was performed through the chest at 1 mm thick sections a nd reconstructed images in multiple planes at 1 mm and [address] DIAGNOSTIC QUALITY: Satisfactory FINDINGS: Nodules: Right lower lobe 5.7 mm pulmonary nodule (series 4, image 158). Right upper lobe 3 mm pulmon francisco nodule (series 4, image 53). Left lower lobe 4.4 mm pulmonary nodule (series 4, image 200). LUNGS: COPD: Severity: None Fibrosis: Severity: None Lymph nodes: None Other findings: None RIGHT PLEURAL SPACE: Effusion: None Calcification: None Thickening: None Pneumothorax: None LEFT PLEURAL SPACE: Effusion: None Calcification: None Thickening: None Pneumothorax: None HEART: Heart Size: Normal Coronary Calcification: Moderate, most prominent along the RCA. Pericardial Effusion: None OTHER FINDINGS: Upper abdomen: Postsurgical changes the GE junction without hiatal hernia identified. Liver is diffus karol hypoattenuating consistent with steatosis. Bony thorax: No acute process. Remote right-sided rib fractures. Supraclavicular region: None Other: None IMPRESSION: A few scattered pulmonary nodules measuring less than [address] LUNG RAD AND CT CHEST RECOMMENDATION: Lung-Rad 2 Benign Appearance or Behavior: Continue annual sc reening with LDCT in 12 months. S Modifier (other clinically significant findings): None
== END | disposition home or self-care (01) ==
LOC: RADCTMAIN 08:52
PROVIDERS: ATTEND Internal Medicine
DX: Z12.2 Encounter for screening for malignant neoplasm of respiratory organs (principal); I63.9 Cerebral infarction, unspecified; G31.1 Senile degeneration of brain, not elsewhere classified; I67.82 Cerebral ischemia; R91.8 Other nonspecific abnormal finding of lung field
CPT/HCPCS: 70450; 71271

== ENCOUNTER → 2023-12-02 | Outpatient (CLI) | payer OTHER ==
--- NOTE | 2023-12-02 09:51 | US ---
EXAMINATION TYPE: US liver DATE OF EXAM: 12/02/2023 COMPARISON: NONE CLINICAL INDICATION: Male, 53 years old with history of R74.01 ELEVATED AST; LFTs TECHNIQUE: Multiple sonographic images of the right upper quadrant are obtained. FINDINGS: EXAM MEASUREMENTS: Liver Length: 15.7 cm Gallbladder Wall: 0.2 cm CBD: 0.2 cm Right Kidney: 11.3x5.0x5.1 cm PAN WASHER HAND NOTES: Pancreas: Tail obscured by overlying bowel gas Liver: Increased attenuation Gallbladder: wnl Evidence for sonographic Prather's sign: No CBD: wnl Right Kidney: No hydronephrosis or masses seen exam limited by bowel and body habitus Right kidney is unremarkable without evidence for hydronephrosis, nephrolithiasis, or solid mass. Com mon bile duct is within normal limits. Gallbladder demonstrates no wall thickening, cholelithiasis, o r surrounding fluid. Negative sonographic Prather's sign. The visualized portions of the pancreas unre markable. The tail is obscured by overlying bowel gas. Liver demonstrates diffusely increased echogen icity. No evidence for focal lesion. IMPRESSION: Hepatic steatosis.
== END | disposition home or self-care (01) ==
LOC: RADUSWWP 09:23
PROVIDERS: ATTEND Internal Medicine
DX: K76.0 Fatty (change of) liver, not elsewhere classified (principal); R74.01 Elevation of levels of liver transaminase levels
CPT/HCPCS: 76705

== ENCOUNTER → 2024-08-08 | Outpatient (CLI) | payer OTHER ==
[2024-08-08 15:31] LABS: Blood Urea Nitrogen 13.6 mg/dL (9.0-27.0); Carbon Dioxide 27.8 mmol/L (21.6-31.8); Chloride 103 mmol/L (96-109); Potassium 4.3 mmol/L (3.5-5.5); Sodium 141 mmol/L (135-145)
[2024-08-08 16:26] LABS: HCT 42.4 % (39.6-50.0); HGB 13.8 g/dL (13.0-17.0); MCH 30.7 pg (27.0-32.0); MCHC 32.5 g/dL (32.0-37.0); MCV 94.2 FL (80.0-97.0); Mean Platelet Volume 10.9 FL (9.5-12.2); NRBC Per 100 WBC 0 X 10*3/uL (0.00-0.01); Platelet Count 182 X 10*3/uL (140-440); WBC 5.17 X 10*3/uL (4.50-10.00)
== END | disposition home or self-care (01) ==
LOC: LABPAT 10:22
PROVIDERS: ATTEND Internal Medicine Interventional Cardiology
DX: Z01.812 Encounter for preprocedural laboratory examination (principal); I25.118 Atherosclerotic heart disease of native coronary artery with other forms of angina pectoris
CPT/HCPCS: 80051; 82565; 84520; 85027

== ENCOUNTER 2024-08-10 08:18 | Day surgery (SDC) | payer OTHER ==
[2024-08-08 13:44] VITALS: BMI 34.4
[2024-08-10] MEDS ORDERED: NITROGLYCERIN SL TABS 0.4 MG TAB SUBLINGUAL PRN (08:26)
[2024-08-10] MEDS ORDERED: ATORVASTATIN 80 MG TAB PO STA (08:26)
[2024-08-10] MEDS ORDERED: ALPRAZolam 0.25 MG TAB PO PRN (08:26)
[2024-08-10] MEDS ORDERED: ALPRAZolam 0.5 MG TAB PO PRN (08:26)
[2024-08-10] MEDS ORDERED: ASPIRIN 325 MG TAB PO STA (08:26)
[2024-08-10] MEDS ORDERED: HEPARIN SODIUM,PORCINE (1 ML) 2,500 UNIT in SODIUM CHLORIDE 0.9% 250 ML IRRIGATION PRN (08:26)
[2024-08-10] MEDS ORDERED: HEPARIN SODIUM,PORCINE 10,000 UNIT in SODIUM CHLORIDE 0.9% 1,000 ML IRRIGATION PRN (08:26)
[2024-08-10] MEDS ORDERED: SODIUM CHLORIDE 0.9% 1,000 ML in EMPTY BAG 1 BAG IV SCH (08:26)
[2024-08-10 08:53] VITALS: RESP 16; TEMP 97.6
[2024-08-10] MEDS: IV FLUID CONTINUATION 1,000 ML IV ONE (08:56)
[2024-08-10] MEDS: HEPARIN SODIUM,PORCINE 10,000 UNIT in SODIUM CHLORIDE 0.9% 1,000 ML IRRIGATION ONE (09:10)
[2024-08-10] MEDS: HEPARIN SODIUM,PORCINE (1 ML) 2,500 UNIT in SODIUM CHLORIDE 0.9% 250 ML IRRIGATION ONE (09:11)
[2024-08-10] MEDS: fentaNYL (PF) 50 MCG/ML 2 ML AMP IVP ONE (09:38)
[2024-08-10] MEDS: LIDOCAINE 1% INJ 10MG/ML (20 ML MDV) SQ ONE (09:44)
[2024-08-10] MEDS: VERAPAMIL SYRINGE (5 MG/10 ML) INTRAARTER ONE (09:46)
[2024-08-10] MEDS: HEPARIN SODIUM 1,000 UN/ML (10ML VL) IV ONE (09:51)
[2024-08-10] MEDS: IOPAMIDOL-250 100ML BTL INTRAARTER ONE (10:10)
[2024-08-10] MEDS ORDERED: RX INFO: IV CONTRAST WAS GIVEN 1 EACH MISC MISCELLANE PRN (10:21)
--- NOTE | 2024-08-10 10:27 | P.CARDCATH ---
Date of Procedure: 08/10/24 Description of Procedure: Cardiac Catheterization: The patient is a 54-year-old male with known history of hypertension and hyperlipidemia, history of CAD status post multiple stenting in the RCA who has been complaining of chest discomfort and had an abnormal MPI. Recommendations were made regarding cardiac catheterization, the risks and the complications were discussed with the patient who is in full understanding and agreement. Procedure Description: Patient was brought to laborer plumbing in fasting semi-sedated state after receiving Fentanyl and Benadryl achieiving moderate conscious sedated state. Using Xylocaine Anesthesia and modified Seldinger technique, a 6-Bulgarian sheath was introduced in the right radial artery . Subsequently, selective coronary angiography was performed using a 5-Bulgarian 4 bend right Yi and 3.5 left Yi catheter. Multiple views of the coronary artery including hemiaxial views were obtained. The left Yi catheter was used to cross the aortic valve and LVEDP was calculated. Following that, catheter and sheath were removed. Hemostasis was obtained with deployment of vascular band . There was no immediate complication. Patient was returned to room in stable condition. Of note, the patient received a total of 5000 units of intravenous heparin as well as intra-arterial verapamil. Findings: Left main: This is a large size vessel, bifurcating into LAD and left circumflex, left main has no obstructive disease LAD: This is a large size vessel, giving rise to a large proximal diagonal branch. The LAD and its branches have no obstructive disease Left circumflex: This is a nondominant vessel, giving rise to 3 obtuse marginal branch the first 2 are large in caliber the third branch is a smaller branch. The left circumflex and its branches have no significant obstructive disease RCA: This is a large dominant vessel bifurcating distally to PDA and PLV the stented segment in the proximal mid and distal RCA are patent. There is a 20% plaque in the mid RCA. The PDA is small in caliber and has a 60 to 70% plaque at the ostium unchanged compared to the images done a year ago Left Ventriculogram: Not performed Hemodynamics: There was no gradient across aortic valve, LVEDP was 12-16 mmHg Conclusion: 1. Patent stent in the proximal, mid and distal RCA with minimal intimal restenosis. A plaque at the ostium of the PDA was noted with no progression 2. No significant disease in the LAD and the left circumflex 3. Right dominance 4. Normal LVEDP Recommendations: I have recommended to continue medical therapy, I see no evidence of significant progression of disease. The findings and the recommendations were discussed with the patient and the family and they were in full understanding and agreement. Duration of sedation is 19 minutes.
[2024-08-10] MEDS ORDERED: SODIUM CHLORIDE 0.9% 1,000 ML IV SCH (10:30)
[2024-08-10 18:19] VITALS: BP 129/64; PULSE 52
[2024-08-10] MEDS ORDERED: ESCITALOPRAM 5 MG TAB PO SCH (21:00)
[2024-08-11] MEDS ORDERED: ASPIRIN 81 MG PO SCH (09:00)
[2024-08-11] MEDS ORDERED: CLOPIDOGREL 75 MG TAB PO SCH (09:00)
[2024-08-11] MEDS ORDERED: ISOSORBIDE MONONITRATE ER 30 MG TAB.ER.24H PO SCH (09:00)
[2024-08-11] MEDS ORDERED: METOPROLOL SUCCINATE (ER) 25 MG TAB.ER.24H PO SCH (09:00)
[2024-08-11] MEDS ORDERED: EZETIMIBE 10 MG TAB PO SCH (09:00)
[2024-08-11] MEDS ORDERED: ATORVASTATIN 80 MG TAB PO SCH (09:00)
== END 2024-08-10 13:46 | disposition home or self-care (01) ==
LOC: CATHCVL 08:18
PROVIDERS: ATTEND Internal Medicine Interventional Cardiology
DX: I25.118 Atherosclerotic heart disease of native coronary artery with other forms of angina pectoris (principal); I10 Essential (primary) hypertension; E78.5 Hyperlipidemia, unspecified; Z95.5 Presence of coronary angioplasty implant and graft
CPT/HCPCS: 93458; J1644 ×3; J2003; J3010; Q9966

== ENCOUNTER → 2024-10-20 | Outpatient (CLI) | payer OTHER ==
--- NOTE | 2024-10-20 08:35 | XR ---
EXAMINATION TYPE: XR ankle complete RT, XR foot complete RT DATE OF EXAM: 10/20/2024 CLINICAL INDICATION: Male, 54 years old with history of M25.571 acute pain R ankle, pain TECHNIQUE: Frontal, lateral and oblique images of the right ankle and foot are obtained. COMPARISON: None. FINDINGS: There is no acute fracture/dislocation evident in the right ankle or foot. The ankle mort ise appears within normal limits. The Brush's toe is seen. There is accessory ossicle near the later al base of the cuboid bone. There is enthesophyte posterior superior aspect of the calcaneus at dista l Achilles tendon insertion. The overlying soft tissue appears unremarkable. IMPRESSION: As above. [facility], , 10/20/2024 8:33 AM
== END | disposition home or self-care (01) ==
LOC: RADXRMAIN 08:11
PROVIDERS: ATTEND Internal Medicine
DX: M25.571 Pain in right ankle and joints of right foot (principal)